=== PATIENT | female | born 1950 | race Caucasian/White ===

== ENCOUNTER 2020-06-27 15:15 | Inpatient (IN) | payer MEDICARE, OTHER, SELFPAY ==
[2020-06-27] VITALS (7 sets, daily range): BP systolic 103–136; BP diastolic 59–93; PULSE 69–88; RESP 16–20; TEMP 36.2–36.8; O2SAT 99–100; BMI 24.9
--- NOTE | 2020-06-27 15:25 | DI.RAD.S_ITS ---
PROCEDURE: XR HIP W PEL IF DONE LT 2V INDICATIONS: left hip pain, fall TECHNIQUE: AP pelvis with lateral view(s) of the left hip(s). COMPARISON: None. FINDINGS: Bones: Mildly displaced femoral neck fracture. No dislocation. No other fractures.. Pelvic ring appears intact. No suspicious bony lesions. Soft tissues: The visualized bowel gas pattern is normal. No suspicious soft tissue calcifications. IMPRESSION: Mildly displaced left femoral neck fracture. Dictated by: Ray Myles M.D. on 06/27/2020 at 16:57 Approved by: Ray Myles M.D. on 06/27/2020 at 16:58
--- NOTE | 2020-06-27 15:28 | ED.FALL ---
HPI - Fall General Chief Complaint: Fall Stated Complaint: L Hip pain Time Seen by Provider: 06/27/20 15:25 Source: patient and EMS Mode of arrival: EMS Limitations: no limitations History of Present Illness HPI Narrative: This is a 69-year-old female comes to the emergency department with complaint of left hip pain. Patient was on a small stool when she went to step down misjudged the distance and fell on her left hip. She has significant left hip pain and cannot move that leg without severe pain. She describes a little bit of numbness and tingling. She states she has had issues with sciatica and pain in the extremity in the past and has had some mild numbness and tingling in the past. Patient denies hitting her head, she denies any neck or back pain. She denies any shortness of breath. No nausea or vomiting. No other GI or urinary symptoms. Patient states she takes sertraline she does not take any medications otherwise. Patient is not on any anticoagulants, she does not take aspirin. She states she is allergic to Demerol and gets nausea vomiting. She has had codeine and other narcotics without issue in the past. She denies any tobacco, alcohol or illicit. Her last oral intake was just prior to arrival while making [employer]. She moved to the area 2 weeks prior from [place] and has not established with a primary care yet. Related Data Home Medications Medication Instructions Recorded Confirmed multivitamin [A To Z Multivitamin] 1 tab PO DAILY 06/27/20 06/27/20 sertraline 100 mg PO DAILY 06/27/20 06/27/20 Allergies Allergy/AdvReac Type Severity Reaction Status Date / Time meperidine [From Demerol] AdvReac Verified 06/27/20 15:54 Review of Systems Review of Systems ROS Unobtainable: All systems reviewed & are unremarkable except as noted in HPI and below Patient History Medical History Anxiety and depression Surgical History H/O ovarian cystectomy H/O unilateral salpingectomy History of appendectomy History of cholecystectomy Social History household members: spouse Smoking Status: Former smoker alcohol intake: never Substance Use Type: does not use Exam Narrative Exam Narrative: GEN: Patient appears in moderate distress. HEAD: No evidence of trauma, no raccoon/Escobedo sign. NECK: Nontender, painless range of motion, trachea midline Negative Nexus criteria, there is no mid line tenderness, distracting injury, altered mental status, neuro deficit, recent EtOH. EYES: PERRLA, EOMI ENT: External inspection normal, trachea is midline, TM's are normal no hemotypanum, Nares are clear, no septal hematoma, no dental or oral injury, airway is normal and with normal occlusion, No bony tenderness RESP: Chest is nontender and has symmetric movement, no ecchymosis, breath sounds are normal no crackles, wheezes or rales CVS: Heart sounds are normal, no murmur noted, No JVD. ABG/GI: Nontender, soft, normal bowel sounds, no distention, no organomegaly, pelvic rock is negative NEURO: Oriented AOx3, neuro is grossly intact, sensation and motor is normal all 4 extremities moving, cranial nerves II through XII are intact, GCS is 15 PSYCH: Normal mood and affect SKIN: Intact, warm and dry, no crepitus and without decubitus BACK: No CVA tenderness, no vertebral tenderness, no step-off's, no crepitus EXT: Atraumatic, right hip is nontender patient's left hip is quite uncomfortable. Patient's hip is held in flexion and rotated externally, no pedal edema, normal color and temperature, normal range of motion of extremities with normal tendon exam, 2+ pulses in all four extremities Initial Vital Signs Initial Vital Signs: Vital Signs Temperature 98.1 F 06/27/20 15:35 Pulse Rate 88 06/27/20 15:35 Respiratory Rate 18 06/27/20 15:35 Blood Pressure 136/81 06/27/20 15:35 Pulse Oximetry 99 06/27/20 15:35 Scores GCS [place] coma scale eye opening: Spontaneous Delmis coma scale verbal response: Orientated [place] coma scale motor response: Obey commands [place] coma scale total score: 15 Course Orders Ordered: ED Orders 06/27/20 15:25 XR hip w pel if done LT 2V Stat EKG-12 Lead Stat 06/27/20 15:32 Complete Blood Count AUTO DIFF Stat Comprehensive Metabolic Panel Stat Lipase Stat Type and Screen Stat 06/27/20 15:41 XR chest 1V Stat 06/27/20 15:53 COVID19 Stat Hydromorphone HCl (Hydromorphone 1 Mg Inj) 1 mg IV Q2H PRN PRN Reason: Pain, Severe (7-10) Last Admin: 06/27/20 18:56 Dose: 1 mg Documented by: AMRITA Sodium Chloride (Normal Saline 0.9%) 1,000 mls @ 125 mls/hr IV CONT BHARAT Last Admin: 06/27/20 15:49 Dose: 125 mls/hr Documented by: EARLE Ketorolac Tromethamine (Ketorolac 30 Mg/Ml Vial) 30 mg IV Q6HR PRN PRN Reason: Pain, Severe (7-10) Stop: 07/02/20 18:06 Multivitamins (Multivitamin 1 Tablet) 1 tab PO DAILY [facility] Naloxone HCl (Naloxone 0.4 Mg/Ml Vial) 0.2 mg IV Q2MIN PRN PRN Reason: Opiate Reversal Ondansetron HCl (Ondansetron 4 Mg/2 Ml Inj) 4 mg IV Q8HR PRN PRN Reason: Nausea And Vomiting Sertraline HCl (Sertraline 50 Mg Tablet) 50 mg PO 699,1999 [facility] Discontinued Medications Morphine Sulfate (Morphine 4 Mg/Ml Inj) 4 mg IV NOW ONE Stop: 06/27/20 16:07 Last Admin: 06/27/20 16:10 Dose: 4 mg Documented by: LUIS ANTONIO Ondansetron HCl (Ondansetron 4 Mg/2 Ml Inj) 4 mg IV NOW ONE Stop: 06/27/20 16:07 Last Admin: 06/27/20 16:10 Dose: 4 mg Documented by: LUIS ANTONIO Reevaluation(s) Reevaluation #1: Patient has increasing pain after imaging and ketamine seems to be wearing off. Morphine and zofran given. Time: 16:17 Consultations Consultation #1: Spoke with Dr. Novak, medicine to admit. Film reviewed. Time: 16:27 Consultation #2: Dr. Hooper accepts for admission. Time: 16:28 Vital Signs Vital signs: Vital Signs - 8 hr 06/27/20 15:35 06/27/20 16:03 Temperature 98.1 F Pulse Rate 88 81 Respiratory Rate 18 Blood Pressure 136/81 Pulse Oximetry 99 100 MDM - Fall Lab Data Attestation: I reviewed the patient's lab results. Result diagrams: 06/27/20 15:32 06/27/20 15:32 Labs: Lab Results 06/27/20 06/27/20 06/27/20 Range/Units 15:32 15:32 15:32 WBC 6.9 (4.5-11.0) X10^3/uL RBC 3.96 L (4.0-5.2) X10^6/uL Hgb 12.3 (12.0-16.0) g/dL Hct 36.7 (36-46) % MCV 92.8 (80-100) fL MCH 31.2 (26-34) PG MCHC 33.6 (30-36) % RDW 14.9 H (11.6-14.8) % Plt Count 230 (150-400) X10^3/uL Neut % (Auto) 58.2 (50-75) % Lymph % (Auto) 28.8 (25-40) % Reynolds % (Auto) 11.2 (3-14) % Eos % (Auto) 0.9 L (2-4) % Baso % (Auto) 0.9 (0-2) % Neut # (Auto) 4000 (0879-3715) /uL Lymph # (Auto) 2000 (9212-5265) /uL Reynolds # (Auto) 800 (0-900) /uL Eos # (Auto) 100 (0-450) /uL Baso # (Auto) 100 (0-100) /uL Sodium 132 L (137-145) mmol/L Potassium 3.7 (3.4-5.1) mmol/L Chloride 100 (98-107) mmol/L Carbon Dioxide 25 (22-32) mmol/L BUN 23 H (7-17) mg/dL Creatinine 0.70 (0.52-1.04) mg/dL Estimated GFR > 60.0 (>60) mL/min BUN/Creatinine Ratio 32.9 H (6-22) Glucose 108 (80-110) mg/dL Calcium 9.2 (8.4-10.2) mg/dL Total Bilirubin 0.3 (0.2-1.3) mg/dL AST 33 (14-36) IU/L ALT 21 (<35) IU/L Alkaline Phosphatase 85 (38-126) U/L Total Protein 7.3 (6.3-8.2) g/dL Albumin 4.2 (3.5-5.0) g/dL Globulin 3.1 (1.7-4.1) g/dL Albumin/Globulin Ratio 1.4 (1.0-2.8) Lipase 250 (23-300) U/L COVID-19 PCR (Negative) Blood Type A Positive Antibody Screen Negative 06/27/20 Range/Units 15:53 WBC (4.5-11.0) X10^3/uL RBC (4.0-5.2) X10^6/uL Hgb (12.0-16.0) g/dL Hct (36-46) % MCV (80-100) fL MCH (26-34) PG MCHC (30-36) % RDW (11.6-14.8) % Plt Count (150-400) X10^3/uL Neut % (Auto) (50-75) % Lymph % (Auto) (25-40) % Reynolds % (Auto) (3-14) % Eos % (Auto) (2-4) % Baso % (Auto) (0-2) % Neut # (Auto) (6244-7545) /uL Lymph # (Auto) (7097-2293) /uL Reynolds # (Auto) (0-900) /uL Eos # (Auto) (0-450) /uL Baso # (Auto) (0-100) /uL Sodium (137-145) mmol/L Potassium (3.4-5.1) mmol/L Chloride (98-107) mmol/L Carbon Dioxide (22-32) mmol/L BUN (7-17) mg/dL Creatinine (0.52-1.04) mg/dL Estimated GFR (>60) mL/min BUN/Creatinine Ratio (6-22) Glucose (80-110) mg/dL Calcium (8.4-10.2) mg/dL Total Bilirubin (0.2-1.3) mg/dL AST (14-36) IU/L ALT (<35) IU/L Alkaline Phosphatase (38-126) U/L Total Protein (6.3-8.2) g/dL Albumin (3.5-5.0) g/dL Globulin (1.7-4.1) g/dL Albumin/Globulin Ratio (1.0-2.8) Lipase (23-300) U/L COVID-19 PCR Negative (Negative) Blood Type Antibody Screen Imaging Data Chest x-ray: Radiologist's Impression: Jeanne Turcios 69 F [address] [id number] ReportSigned Patient: Jeanne Turcios JMR#: [id number]: [id number]:[id number]/Sex: 69 / FDate of Service: 06/27/20Loc: [id number] Number: [id number] Procedure: XR chest 1V Ordering Provider: Christina Palma D.O. PROCEDURE: XR CHEST 1V INDICATIONS: hip fx TECHNIQUE: One view of the chest was acquired. COMPARISON: None. FINDINGS: Surgical changes and devices: None. Lungs and pleura: Lungs are clear. No pleural effusions or pneumothorax. Mediastinum: Mediastinal contours appear normal. Heart size is normal. Bones and chest wall: No suspicious bony lesions. Overlying soft tissues appear unremarkable. IMPRESSION: No evidence acute pulmonary process. Dictated by: Ray Myles M.D. on 06/27/2020 at 16:58 Approved by: Ray Myles M.D. on 06/27/2020 at 16:58 Extremity x-ray #1: Radiologist's Impression: [address] [id number] ReportSigned Patient: Jeanne Turcios JMR#: [id number]: [id number]:[id number]/Sex: / FDate of Service: 06/27/20Loc: [id number] Number: [id number] Procedure: XR hip w pel if done LT 2V Ordering Provider: Christina Palma D.O. PROCEDURE: XR HIP W PEL IF DONE LT 2V INDICATIONS: left hip pain, fall TECHNIQUE: AP pelvis with lateral view(s) of the left hip(s). COMPARISON: None. FINDINGS: Bones: Mildly displaced femoral neck fracture. No dislocation. No other fractures.. Pelvic ring appears intact. No suspicious bony lesions. Soft tissues: The visualized bowel gas pattern is normal. No suspicious soft tissue calcifications. IMPRESSION: Mildly displaced left femoral neck fracture. Dictated by: Ray Myles M.D. on 06/27/2020 at 16:57 Approved by: Ray Myles M.D. on 06/27/2020 at 16:58 ECG Data Attestation: I personally reviewed and interpreted this ECG as follows: Interpretation: Normal sinus rhythm, rate of 73, ME 176, QRS 84 and QTC of 431. No ST elevation. No depression. No prior available for comparison. MDM Narrative Medical decision making narrative: 69-year-old female comes in with complaint of left hip pain after fall patient has a left hip fracture, reviewed with for orthopedic surgery plan for OR. Patient did eat just prior to arrival. She is not on thinners, her only medication is sertraline. She has a mild hyponatremia with otherwise unremarkable labs. Chest x-ray and EKG were and occluded for medical clearance. I also spoke with Dr. Hooper who accepts for admission. Discharge Plan Departure Patient Disposition: Admitted As Inpatient Clinical Impression: Closed hip fracture, Hyponatremia Admit Date/Time: 06/27/20 16:29 Admit Provider: Vincent Hooper
--- NOTE | 2020-06-27 15:41 | DI.RAD.S_ITS ---
PROCEDURE: XR CHEST 1V INDICATIONS: hip fx TECHNIQUE: One view of the chest was acquired. COMPARISON: None. FINDINGS: Surgical changes and devices: None. Lungs and pleura: Lungs are clear. No pleural effusions or pneumothorax. Mediastinum: Mediastinal contours appear normal. Heart size is normal. Bones and chest wall: No suspicious bony lesions. Overlying soft tissues appear unremarkable. IMPRESSION: No evidence acute pulmonary process. Dictated by: Ray Myles M.D. on 06/27/2020 at 16:58 Approved by: Ray Myles M.D. on 06/27/2020 at 16:58
[2020-06-27] MEDS: SODIUM CHLORIDE 0.9% 1,000 ML 125 ML IV (15:49)
[2020-06-27 15:50] LABS: Alanine Aminotransferase 21 IU/L (<35); Albumin 4.2 g/dL (3.5-5.0); Albumin Globulin Ratio 1.4 (1.0-2.8); Alkaline Phosphatase 85 U/L (38-126); Aspartate Aminotransferase 33 IU/L (14-36); BUN Creatinine Ratio 32.9 (6-22); Bilirubin Total 0.3 mg/dL (0.2-1.3); Blood Urea Nitrogen 23 mg/dL (7-17); Calcium 9.2 mg/dL (8.4-10.2); Carbon Dioxide 25 mmol/L (22-32); Chloride 100 mmol/L (98-107); Estimated Glomerular Filt Rate > 60.0 mL/min (>60); Globulin 3.1 g/dL (1.7-4.1); Glucose 108 mg/dL (80-110); HEMOLYSIS 18 (0-50); Lipase 250 U/L (23-300); Potassium 3.7 mmol/L (3.4-5.1); Sodium 132 mmol/L (137-145); Total Protein 7.3 g/dL (6.3-8.2)
[2020-06-27 15:52] LABS: Add Manual Diff / Slide Review NO; Basophils Absolute Auto 100 /uL (0-100); Basophils Percent Auto 0.9 % (0-2); Eosinophils Absolute Auto 100 /uL (0-450); Eosinophils Percent Auto 0.9 % (2-4); Hematocrit 36.7 % (36-46); Hemoglobin 12.3 g/dL (12.0-16.0); Lymphocytes Absolute Auto 2000 /uL (1100-4500); Lymphocytes Percent Auto 28.8 % (25-40); Mean Corpuscular HGB Conc 33.6 % (30-36); Mean Corpuscular Hemoglobin 31.2 PG (26-34); Mean Corpuscular Volume 92.8 fL (80-100); Monocytes Absolute Auto 800 /uL (0-900); Monocytes Percent Auto 11.2 % (3-14); Neutrophils Absolute Auto 4000 /uL (1500-7000); Neutrophils Percent Auto 58.2 % (50-75); Platelet Count 230 X10^3/uL (150-400); Red Blood Cell Count 3.96 X10^6/uL (4.0-5.2); Red Cell Distribution Width 14.9 % (11.6-14.8); White Blood Cell Count 6.9 X10^3/uL (4.5-11.0)
[2020-06-27] MEDS: ONDANSETRON 4 MG/2 ML INJ IV (16:10)
[2020-06-27] MEDS: MORPHINE 4 MG/ML INJ IV (16:10)
[2020-06-27 16:18] LABS: COVID19 -Nasal RAPID Negative (Negative)
--- NOTE | 2020-06-27 17:15 | P.HP_ITS ---
History of Present Illness History of Present Illness Date Patient Seen: 06/27/20 Time Patient Seen: 17:15 Chief complaint: L Hip pain Narrative: Jeanne Malagon is a 69-year-old female with past medical history of anxiety and depression who presented to the emergency room with a complaint of left hip pain. Patient was baking Jair cookies and was standing on a step stool to reach a kahn in her cabinet, she thought she was on the bottom step of her step stool however she was on the 2nd to bottom. Her foot then slipped and she fell onto her left side. She had immediate pain and could not move. She has a little bit of numbness and tingling that is intermittent in her left foot. She did not hit her head and she denies any neck or back pain. She has had no recent chest pain, shortness of breath, palpitations, nausea, vomiting, abdominal pain, dysuria, or urinary frequency. She states that she has refused osteoporosis treatment with Fosamax in the past and would not want to start now. She takes multiple supplements including calcium and vitamin-D, and sertraline is her only prescribed medication. In the emergency room, her vital signs were unremarkable. CBC was unremarkable, chemistries revealed a mild hyponatremia with a sodium of 132, but no other significant lab abnormality. COVID-19 testing was negative. Type and screen was performed. EKG showed normal sinus rhythm. Chest x-ray was unremarkable and hip x-ray showed a mildly displaced left femoral neck fracture. Patient was admitted, Orthopedic surgery consulted, and she is pending operative fixation at this time. She did eat just prior to her fall, unclear if operative intervention will be later this evening or tomorrow morning. Patient History Medical History Anxiety and depression Surgical History H/O ovarian cystectomy H/O unilateral salpingectomy History of appendectomy History of cholecystectomy Family & Social History Social History: household members spouse Prior Living Arrangements House Safety & Behavioral: Feels Safe in Current Yes Environment Been Physically Hurt or No Threatened By a Person Suicidal Ideation Description None Suicide Plan Description No Plan Tobacco & Substance use: Smoking Status Former smoker alcohol intake never Substance Use Type does not use Meds Home Medications and Allergies Home Medications Medication Instructions Recorded Confirmed Type multivitamin [A To Z Multivitamin] 1 tab PO DAILY 06/27/20 06/27/20 History sertraline 100 mg PO DAILY 06/27/20 06/27/20 History Allergies Allergy/AdvReac Type Severity Reaction Status Date / Time meperidine [From Demerol] AdvReac Verified 06/27/20 15:54 Review of Systems Review of Systems Narrative: All other systems reviewed with the patient and are negative unless otherwise stated. Exam Vital Signs (past 8 hours): - 06/27/20 15:35 06/27/20 16:03 06/27/20 16:30 Temperature 98.1 F Pulse Rate 88 81 80 Respiratory Rate 18 Blood Pressure 136/81 Pulse Oximetry 99 100 100 06/27/20 16:31 Temperature Pulse Rate 80 Respiratory Rate Blood Pressure 113/93 H Pulse Oximetry 99 Oxygen Delivery Method Room Air Narrative Exam Narrative: GENERAL APPEARANCE: Well developed, well nourished, in no acute distress but grimaces in pain with minimal movement. SKIN: Inspection of the skin reveals no rashes, ulcerations or petechiae. HEENT: Normocephalic atraumatic, extraocular muscles are intact, oropharynx is clear and mucous membranes are moist, neck is supple without adenopathy NECK: Supple and symmetric. There was no thyroid enlargement, and no tenderness, or masses were felt. CHEST: Normal AP diameter and normal contour without any kyphoscoliosis. LUNGS: Auscultation of the lungs revealed no wheezes, rhonchi, or rales. CARDIOVASCULAR: There was a regular rate and rhythm without any murmurs, gallops, rubs. Peripheral pulses were 2+ and symmetric. ABDOMEN: Soft and nondistended. No ascites was noted. MUSCULOSKELETAL: Tenderness to left hip, mild left lower extremity swelling, Muscle tone was normal. EXTREMITIES: No cyanosis, clubbing or edema. Compartments soft bilaterally. NEUROLOGIC: Alert and oriented x 3. Normal affect. Able to wiggle her left toes, no gross focal neurological deficits. Objective Labs Result Diagrams: 06/27/20 15:32 06/27/20 15:32 Labs: Laboratory Results - last 24 hr 06/27/20 06/27/20 06/27/20 15:32 15:32 15:32 WBC 6.9 RBC 3.96 L Hgb 12.3 Hct 36.7 MCV 92.8 MCH 31.2 MCHC 33.6 RDW 14.9 H Plt Count 230 Neut % (Auto) 58.2 Lymph % (Auto) 28.8 Bradford % (Auto) 11.2 Eos % (Auto) 0.9 L Baso % (Auto) 0.9 Neut # (Auto) 4000 Lymph # (Auto) 2000 Bradford # (Auto) 800 Eos # (Auto) 100 Baso # (Auto) 100 Sodium 132 L Potassium 3.7 Chloride 100 Carbon Dioxide 25 BUN 23 H Creatinine 0.70 Estimated GFR > 60.0 BUN/Creatinine Ratio 32.9 H Glucose 108 Calcium 9.2 Total Bilirubin 0.3 AST 33 ALT 21 Alkaline Phosphatase 85 Total Protein 7.3 Albumin 4.2 Globulin 3.1 Albumin/Globulin Ratio 1.4 Lipase 250 COVID-19 PCR Blood Type A Positive Antibody Screen Negative 06/27/20 15:53 WBC RBC Hgb Hct MCV MCH MCHC RDW Plt Count Neut % (Auto) Lymph % (Auto) [place] % (Auto) Eos % (Auto) Baso % (Auto) Neut # (Auto) Lymph # (Auto) [place] # (Auto) Eos # (Auto) Baso # (Auto) Sodium Potassium Chloride Carbon Dioxide BUN Creatinine Estimated GFR BUN/Creatinine Ratio Glucose Calcium Total Bilirubin AST ALT Alkaline Phosphatase Total Protein Albumin Globulin Albumin/Globulin Ratio Lipase COVID-19 PCR Negative Blood Type Antibody Screen Assessment & Plan Assessment & Plan narrative: Jeanne Malagon is a 69-year-old female with past medical history of anxiety and depression who presented to the emergency room with a complaint of left hip pain. She was found to have a mildly displaced left femoral neck fracture. She is pending operative fixation at this time, timing to be determined with Orthopedic surgery and anesthesia. 1. Left femoral neck fracture, mildly displaced, acute, present on admission, likely pathologic -patient slipped off of the 2nd step of her step stool reaching for cookie tins in her kitchen, landing on her left side and suffering a mildly displaced left femoral neck fracture. -orthopedic surgery, Dr. Phelan, consult in the emergency room. Planning for operative interventions either later today or possibly tomorrow morning given the patient did eat just prior to her fall. -patient denies recent symptoms including chest pain, shortness of breath, dyspnea on exertion. EKG shows normal sinus rhythm. Chest x-ray is unremarka ble. Patient is medically optimized prior to surgery. -PT/OT after operative interventions -patient does not want to discharge to SNF,prefers home with home health. -pain control for now with dilauid 1 mg q2 hours. 2. Anixety and depression, chronic, stable - continue home sertraline, patients states she takes medicine 50 mg BID. Will continue here. 3. Hyponatremia, unknown if acute or chronic, present on admission. - mild hyponatremia on admission, 132. Will continue to follow level with AM value. Keep on NS infusion while NPO for OR. Dispo: Admit under inpatient status as her stay is expected to exceed two midnights. Code: Full, surrogate decision maker is her , Richard Malagon DVT: HSQ BID, hold for surgery. COVID-19 COVID-19 status: Negative Quality VTE Deep Vein Thrombosis/Pulmonary Embolism Present on Admission: No
[2020-06-27] MEDS: HYDROMORPHONE 1 MG INJ IV ×2 (18:56→22:09)
--- NOTE | 2020-06-27 19:39 | PM.CN ---
History of Present Illness Consult details Date Patient Seen: 06/27/20 Time Patient Seen: 19:39 Chief complaint: L Hip pain Reason for consult: Left hip fracture Requesting provider: Christina Palma Narrative: Jeanne is a 69-year-old female that fell off her stepstool while making [employer] cookies today. She thought she was on the 1st step but was on the 2nd and fell on the ground directly onto her left hip. She was unable to ambulate removed after that had pain directly at the left hip. Denies loss consciousness or other injury. Does have a previous diagnosis of osteopenia. Has refused bisphosphonates in the past. 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 She just moved here about 2 weeks ago from [place]. Denies fevers chills nausea or vomiting. Endorses pain left hip. Endorses a history of bilateral knee arthritis that she gets higher on the cast had injections from a pain doctor in [facility]. Also may have had some sciatica symptoms recently. Presents with her who is in the room today. We also have her daughter Hanny with us via telephone. Interestingly her daughter Hanny has a history of a displaced highly comminuted femoral neck fracture when she was young and that was fixed with an ORIF the later went on to AVN. Meds Home Medications and Allergies Home Medications Medication Instructions Recorded Confirmed Type multivitamin [A To Z Multivitamin] 1 tab PO DAILY 06/27/20 06/27/20 History sertraline 100 mg PO DAILY 06/27/20 06/27/20 History Allergies Allergy/AdvReac Type Severity Reaction Status Date / Time meperidine [From Demerol] AdvReac Verified 06/27/20 15:54 Review of Systems Review of Systems Narrative: History of knee arthritis. History of osteopenia. History of gynecologic surgery ROS: Yes All systems reviewed with the patient and are negative except as otherwise documented Exam Vital Signs (past 8 hours): - 06/27/20 15:35 06/27/20 16:03 06/27/20 16:30 Temperature 98.1 F Pulse Rate 88 81 80 Respiratory Rate 18 Blood Pressure 136/81 Pulse Oximetry 99 100 100 06/27/20 16:31 06/27/20 16:55 Temperature 98.3 F Pulse Rate 80 71 Respiratory Rate 20 Blood Pressure 113/93 H 123/64 Pulse Oximetry 99 99 Oxygen Delivery Method Room Air Narrative Exam Narrative: General examination is alert and oriented female no acute distress. Very articulate and pleasant. HEENT exam is normocephalic atraumatic Respiratory exam is unlabored on room air. lungs clear CV regular rate and rhythm no Kahn Musculoskeletal exam. No pain along the left leg. Right leg normal rotation and leg lengths. Tenderness at the left hip. Dorsiflexion plantar flexion intact soft calf. No erythema. Hip range of motion is deferred with known fracture and to avoid displacement Free full painless movement bilateral upper extremities. No swelling or erythema. Objective Labs Result Diagrams: 06/27/20 15:32 06/27/20 15:32 Labs: Laboratory Results - last 24 hr 06/27/20 06/27/20 06/27/20 15:32 15:32 15:32 WBC 6.9 RBC 3.96 L Hgb 12.3 Hct 36.7 MCV 92.8 MCH 31.2 MCHC 33.6 RDW 14.9 H Plt Count 230 Neut % (Auto) 58.2 Lymph % (Auto) 28.8 [place] % (Auto) 11.2 Eos % (Auto) 0.9 L Baso % (Auto) 0.9 Neut # (Auto) 4000 Lymph # (Auto) 2000 [place] # (Auto) 800 Eos # (Auto) 100 Baso # (Auto) 100 Sodium 132 L Potassium 3.7 Chloride 100 Carbon Dioxide 25 BUN 23 H Creatinine 0.70 Estimated GFR > 60.0 BUN/Creatinine Ratio 32.9 H Glucose 108 Calcium 9.2 Total Bilirubin 0.3 AST 33 ALT 21 Alkaline Phosphatase 85 Total Protein 7.3 Albumin 4.2 Globulin 3.1 Albumin/Globulin Ratio 1.4 Lipase 250 COVID-19 PCR Blood Type A Positive Antibody Screen Negative 06/27/20 15:53 WBC RBC Hgb Hct MCV MCH MCHC RDW Plt Count Neut % (Auto) Lymph % (Auto) [place] % (Auto) Eos % (Auto) Baso % (Auto) Neut # (Auto) Lymph # (Auto) [place] # (Auto) Eos # (Auto) Baso # (Auto) Sodium Potassium Chloride Carbon Dioxide BUN Creatinine Estimated GFR BUN/Creatinine Ratio Glucose Calcium Total Bilirubin AST ALT Alkaline Phosphatase Total Protein Albumin Globulin Albumin/Globulin Ratio Lipase COVID-19 PCR Negative Blood Type Antibody Screen Assessment & Plan Assessment and plan (1) Closed hip fracture: Problem details: Left Garden 1 hip fracture femoral neck. Fracture line visible at and medial neck it is valgus impacted. Discussed options for treatment. Recommend pinning with cannulated hip screws. Discuss risks and benefits. In particular discussed risks for nonunion malunion AVN hardware failure potential posttraumatic arthritis or need for additional surgery or hip replacement. Discussed advantages of pinning including less blood loss unfavorable outcome with garden 1 orientation fracture. Discussed patient's hip joint is well preserved. The risks and benefits of the procedure have been discussed with the patient even opportunity to ask questions. The risks of surgery include but are not limited to infection, malunion, nonunion, persistence of pain, damage to nerves and blood vessels, posttraumatic arthritis, DVT, PE, cardiopulmonary complications including paralysis, stroke, myocardial infarction and . The patient expressed a thorough understanding of the risks and benefits of surgery and has elected to proceed. Consent was signed. Will do Lovenox 40 mg subcutaneous daily for postoperative DVT prophylaxis starting postop day 1 for 4 weeks. She has no history of thromboembolism or bleeding disorder. She does not use tobacco. Status: Acute (2) Osteoporosis with pathological fracture: Problem details: Patient has had a previous DEXA scan but cannot remember when it was. She has previously been diagnosed with osteopenia and has been counseled for bisphosphonates but declined these at the time. I have encouraged a reassessment of her bone density as an outpatient with a new DEXA scan. The current intake of vitamin-D and calcium and consideration for additional the methods to address her osteoporosis. Discussed osteopenia with a fracture including a hip fracture is a sentinel event and a a defines a osteoporotic fracture. She has just moved to the area and will need to establish a primary care physician. Also discussed that initial DEXA imaging can be ordered as an outpatient with follow-up in orthopedic clinic. Status: Acute
[2020-06-27] MEDS: SERTRALINE 50 MG TABLET PO (21:53)
[2020-06-28] VITALS (21 sets, daily range): BP systolic 90–141; BP diastolic 47–73; PULSE 67–110; RESP 12–20; TEMP 36.2–37.9; O2SAT 92–99; BMI 24.9
--- NOTE | 2020-06-28 | DI.RAD.S_ITS ---
PROCEDURE: XR HIP W PEL IF DONE LT 2V INDICATIONS: left hip pinning TECHNIQUE: AP pelvis with lateral view(s) of the left hip(s). COMPARISON: [facility], [facility], XR HIP W PEL IF DONE LT 2V, 06/27/2020, 15:26. FINDINGS: 4 intraoperative fluoroscopy images demonstrate open reduction and internal fixation of left femoral neck fracture is placement of 3 surgical pins. IMPRESSION: Open reduction and internal fixation of left femoral neck fracture. Dictated by: Saumya Murphy M.D. on 06/28/2020 at 15:26 Approved by: Saumya Murphy M.D. on 06/28/2020 at 15:28
[2020-06-28] MEDS: SODIUM CHLORIDE 0.9% 1,000 ML 125 ML IV ×2 (00:09→09:20)
[2020-06-28] MEDS: HYDROMORPHONE 1 MG INJ IV ×5 (00:57→09:19)
[2020-06-28] MEDS: ONDANSETRON 4 MG/2 ML INJ IV (04:04)
[2020-06-28 06:13] LABS: Add Manual Diff / Slide Review NO; Basophils Absolute Auto 0 /uL (0-100); Basophils Percent Auto 0.4 % (0-2); Eosinophils Absolute Auto 0 /uL (0-450); Eosinophils Percent Auto 0.3 % (2-4); Hematocrit 37.1 % (36-46); Hemoglobin 12.1 g/dL (12.0-16.0); Lymphocytes Absolute Auto 700 /uL (1100-4500); Lymphocytes Percent Auto 8.4 % (25-40); Mean Corpuscular HGB Conc 32.5 % (30-36); Mean Corpuscular Hemoglobin 30.6 PG (26-34); Mean Corpuscular Volume 94.3 fL (80-100); Monocytes Absolute Auto 800 /uL (0-900); Monocytes Percent Auto 9.4 % (3-14); Neutrophils Absolute Auto 6900 /uL (1500-7000); Neutrophils Percent Auto 81.5 % (50-75); Platelet Count 197 X10^3/uL (150-400); Red Blood Cell Count 3.94 X10^6/uL (4.0-5.2); Red Cell Distribution Width 14.8 % (11.6-14.8); White Blood Cell Count 8.4 X10^3/uL (4.5-11.0)
[2020-06-28] MEDS: SERTRALINE 50 MG TABLET PO ×2 (06:16→20:24)
[2020-06-28 06:20] LABS: BUN Creatinine Ratio 19.2 (6-22); Blood Urea Nitrogen 14 mg/dL (7-17); Calcium 8.9 mg/dL (8.4-10.2); Carbon Dioxide 30 mmol/L (22-32); Chloride 108 mmol/L (98-107); Estimated Glomerular Filt Rate > 60.0 mL/min (>60); Glucose 100 mg/dL (80-110); HEMOLYSIS < 15 (0-50); Potassium 4.3 mmol/L (3.4-5.1); Sodium 138 mmol/L (137-145)
[2020-06-28] MEDS: ACETAMINOPHEN 325 MG TABLET 975 MG PO (09:38)
[2020-06-28] MEDS: LACTATED RINGERS 1,000 ML 42 ML IV ×2 (11:11→14:08)
--- NOTE | 2020-06-28 11:15 | OT.IPNOTE ---
OT order recieved. Pt is planned for L hip sx today at 1300. Will hold and continue to follow.
--- NOTE | 2020-06-28 11:16 | PC.NURSE ---
Day shift note: Pain not well controlled with Dilaudid 1 mg IV Q2H, states pain 10/10 to left hip, notified Dr. Hooper, new order obtained for Morphine 4mg Q3H PRN.
--- NOTE | 2020-06-28 11:31 | PT-IP ANOTE ---
PT order received and chart reviewed. Pt suffered Lhip fracture at femoral neck from a GLF. She is going to have surgery today with pinning with cannulated hip screws. Will DC PT order first until pt's new POC is established post surgically.
[2020-06-28] MEDS: CEFAZOLIN 2 GM/100 ML FROZ.PIGGY IV ×2 (13:00→20:24)
[2020-06-28] MEDS: BUPIVACAINE 0.25% W/ EPI (PF) 10 ML VIAL 20 ML INJ (13:33)
--- NOTE | 2020-06-28 13:39 | SUR.OPER ---
Supine on padded Bushnell table with bilateral legs secured in padded positioning boots and suspended in positioning spars, operative leg in traction per surgeon. Head on one pillow. Arm on non-operative side secured on padded armboard <90 degrees abduction. Arm on operative side padded and resting across chest then secured with tape over sheet. Padded perineal post in place per surgeon.
--- NOTE | 2020-06-28 14:36 | CM.IDA ---
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 Patient presents after a GLF at home and subsequent hip fx, needing repair w/ Dr Novak today. Patient moved to [place] from [place] two weeks ago and has not established w/ a PCP yet. Payer: [facility] Patient off the floor for surgery this afternoon. Will plan to follow closely and assess for DC needs. Team feels patient will likely DC home w/spouse, indp and active at baseline. ANUEL
--- NOTE | 2020-06-28 14:42 | P.PN_ITS ---
Subjective Subjective Date Patient Seen: 06/28/20 Time Patient Seen: 16:06 Interval history: This is a 69-year-old female with a past medical history of anxiety and depression who was admitted with a left femoral neck fracture. She is seen today after return from the operating room where she underwent operative fixation of her femoral neck fracture. Her pain is controlled at this time. She denies any chest pain or shortness of breath. She is anxious to get up and work with PT. 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 Exam Vital Signs (past 8 hours): - 06/28/20 08:48 06/28/20 09:25 06/28/20 10:05 Temperature 97.4 F L 98.3 F Pulse Rate 96 H 87 Respiratory Rate 15 13 Blood Pressure 141/73 H 93/61 Pulse Oximetry 98 94 93 06/28/20 10:59 Temperature 99.3 F Pulse Rate 91 H Respiratory Rate 20 Blood Pressure 103/57 L Pulse Oximetry 94 Oxygen Delivery Method Room Air Oxygen Flow Rate 0 Narrative Exam Narrative: GENERAL APPEARANCE: Well developed, well nourished, in no acute distress but grimaces in pain with minimal movement. SKIN: Inspection of the skin reveals no rashes, ulcerations or petechiae. HEENT: Normocephalic atraumatic, extraocular muscles are intact, oropharynx is clear and mucous membranes are moist, neck is supple without adenopathy NECK: Supple and symmetric. There was no thyroid enlargement, and no tenderness, or masses were felt. CHEST: Normal AP diameter and normal contour without any kyphoscoliosis. LUNGS: Auscultation of the lungs revealed no wheezes, rhonchi, or rales. CARDIOVASCULAR: There was a regular rate and rhythm without any murmurs, gallops, rubs. Peripheral pulses were 2+ and symmetric. ABDOMEN: Soft and nondistended. No ascites was noted. MUSCULOSKELETAL: L hip surgical dressing c/d/i. mild swelling over the area without erythema or warmth. EXTREMITIES: No cyanosis, clubbing or edema. Compartments soft bilaterally. NEUROLOGIC: Alert and oriented x 3. Normal affect. Able to wiggle her left toes, no gross focal neurological deficits. Objective Labs Result Diagrams: 06/28/20 05:50 06/28/20 05:50 Labs: Laboratory Results - last 24 hr 12/17/20 12/17/20 12/17/20 15:32 15:32 15:32 WBC 6.9 RBC 3.96 L Hgb 12.3 Hct 36.7 MCV 92.8 MCH 31.2 MCHC 33.6 RDW 14.9 H Plt Count 230 Neut % (Auto) 58.2 Lymph % (Auto) 28.8 [place] % (Auto) 11.2 Eos % (Auto) 0.9 L Baso % (Auto) 0.9 Neut # (Auto) 4000 Lymph # (Auto) 2000 [place] # (Auto) 800 Eos # (Auto) 100 Baso # (Auto) 100 Sodium 132 L Potassium 3.7 Chloride 100 Carbon Dioxide 25 BUN 23 H Creatinine 0.70 Estimated GFR > 60.0 BUN/Creatinine Ratio 32.9 H Glucose 108 Calcium 9.2 Total Bilirubin 0.3 AST 33 ALT 21 Alkaline Phosphatase 85 Total Protein 7.3 Albumin 4.2 Globulin 3.1 Albumin/Globulin Ratio 1.4 Lipase 250 COVID-19 PCR Blood Type A Positive Antibody Screen Negative 06/27/20 06/28/20 06/28/20 15:53 05:50 05:50 WBC 8.4 RBC 3.94 L Hgb 12.1 Hct 37.1 MCV 94.3 MCH 30.6 MCHC 32.5 RDW 14.8 Plt Count 197 Neut % (Auto) 81.5 H D Lymph % (Auto) 8.4 L D [place] % (Auto) 9.4 Eos % (Auto) 0.3 L Baso % (Auto) 0.4 Neut # (Auto) 6900 Lymph # (Auto) 700 L [place] # (Auto) 800 Eos # (Auto) 0 Baso # (Auto) 0 Sodium 138 Potassium 4.3 Chloride 108 H Carbon Dioxide 30 BUN 14 Creatinine 0.73 Estimated GFR > 60.0 BUN/Creatinine Ratio 19.2 Glucose 100 Calcium 8.9 Total Bilirubin AST ALT Alkaline Phosphatase Total Protein Albumin Globulin Albumin/Globulin Ratio Lipase COVID-19 PCR Negative Blood Type Antibody Screen [facility] Medical History Anxiety and depression Surgical History H/O ovarian cystectomy H/O unilateral salpingectomy History of appendectomy History of cholecystectomy Social History household members: spouse Smoking Status: Former smoker alcohol intake: never Assessment & Plan Assessment & Plan narrative: Jeanne Malagon is a 69-year-old female with past medical history of anxiety and depression who presented to the emergency room with a complaint of left hip pain. She was found to have a mildly displaced left femoral neck fracture. She is now s/p ORIF on 06/28/20. 1. Left femoral neck fracture, mildly displaced, acute, present on admission, likely pathologic -patient slipped off of the 2nd step of her step stool reaching for cookie tins in her kitchen, landing on her left side and suffering a mildly displaced left femoral neck fracture. -orthopedic surgery, Dr. Phelan, consult in the emergency room. ORIF performed 06/28. -patient denied recent symptoms including chest pain, shortness of breath, dyspnea on exertion. EKG shows normal sinus rhythm. Chest x-ray is unremarkable. Patient is medically optimized prior to surgery. -PT/OT to start tomorrow -patient does not want to discharge to SNF,prefers home with home health. -pain control with tylenol, oxycodone, morphine for breakthrough. 2. Anixety and depression, chronic, stable - continue home sertraline, patients states she takes medicine 50 mg BID. Will continue here. 3. Hyponatremia, acute, present on admission, resolved. - mild hyponatremia on admission, 132. Improved with normal saline to 138. Likely due to mild dehydration. Dispo: Admit under inpatient status as her stay is expected to exceed two midnights. Code: Full, surrogate decision maker is her , Richard Malagon DVT: HSQ BID, hold for surgery. Quality VTE Deep Vein Thrombosis/Pulmonary Embolism Present on Admission: No
--- NOTE | 2020-06-28 14:44 | PM.PREOP ---
Pre-operative Note COVID-19 COVID-19 status: Negative Interval Note History & Physical reviewed/Exam performed by Physician: Yes Changes to H&P: No H&P completed within 30 days and has changed as indicated here:: Formal H&P & consult less than 24 hours old. No changes
--- NOTE | 2020-06-28 14:50 | P.OP_ITS ---
Operative Date/Time/Diagnoses Date of procedure: 06/28/20 Time of procedure: 14:50 Pre-op diagnosis: Left valgus impacted femoral neck fracture Osteoporosis Post-op diagnosis: same Procedure & Clinicians Procedure: Revision left femoral neck fracture with cannulated screws CPT code 50335 Same procedure as scheduled: Yes Indications: Patient is a 69-year-old female fell off a step stool while baking cookies. She thought she was on the the 1st step was on the 2nd step and fell directly on her left hip. She sustained a valgus impacted femoral neck fracture. She has no pre-existing or underlying arthritis. She was indicated for cannulated screw fixation of her valgus impacted femoral neck fracture. She does have a previous diagnosis of osteopenia. She has not been on it osteoporosis specific medications. The risks and benefits of the procedure have been discussed with the patient even opportunity to ask questions. The risks of surgery include but are not limited to infection, malunion, nonunion, persistence of pain, damage to nerves and blood vessels, posttraumatic arthritis, DVT, PE, cardiopulmonary complications and . The patient expressed a thorough understanding of the risks and benefits of surgery and has elected to proceed. Consent was signed. We talked in depth about risk for nonunion malunion failure of fixation and need for additional procedures including avascular necrosis and hip arthroplasty. We discussed risks for a blood loss pulmonary embolism and DVT in cardiopulmonary complications assoc iated with surgery. Surgeon: Lashawn Novak Click Yes if Unassisted: Yes Anesthesia Type: Spinal, Sedation and Local Operative Notes Findings: Valgus impacted left femoral neck fracture stabilized with 3 x 6.7 Arthrex partially-threaded cannulated screws measuring, 85mm, 85 mm, and 90 mm with a washer Closure Type: primary Specimen(s): none sent Prosthetic devices, grafts, tissues, transplants, or devices: Arthrex 6.7 cannulated screws, partially threaded, short thread x3 Estimated Blood Loss (mL): 10 Blood products transfused: none Tourniquet time (min): 0 Procedure in detail: Patient was seen in the preoperative area and the site of surgery was marked and informed consent was confirmed. Final questions were answered. This was the left hip. The patient was brought to the operating room and placed on the operative table. General anesthesia was administered. The patient was positioned on the fracture table in the standard fashion with well- padded boots and perineal post. An SCD was worn on the contralateral leg. For mal time-out procedure we took place confirming the patient's side and site of surgery and administration of appropriate preoperative antibiotics. All personnel were in agreement. Implants were in the room. The fluoroscopy unit was brought in and we made sure that we could get appropriate AP and lateral images of the hip. Following this the extremity was prepped and draped in the standard sterile fashion. Landmarks on the AP and lateral marked out on the skin. Small incision was made in the lateral thigh and a pin was placed percutaneously determining the starting port for the inferior cannulated screw. This was directed posterior along the neck and into the femoral head. The threaded guidewire was advanced across the fracture into the femoral head. The honeycomb guide was then used to advance 2 more guidewires in an inverted triangle fashion along the anterior and posterior femoral neck into the head. Fluoroscopic images were checked in AP and lateral planes to ensure adequate guidewire Spread and penetration. The inferior guidewire was measured for a 85 screw and then overdrilled. A 85 mm 6.7 Arthrex short thread cannulated screw was then advanced over the guidewire and across the fracture site into the femoral head. This was advanced to a appropriate distance from the articular surface. Next the posterior superior guidewire was overdrilled and measured for a 85 mm screw. This was placed without a washer. Additionally an 90 mm was screw with washer was placed for the anterior superior screw. AP and lateral imaging confirmed appropriate placement of the implants and no violation of the articular surface. The fracture maintained alignment. At this point the leg was taken through internal and external rotation obtaining visualization of the joint throughout the arc of motion under live fluoroscopy. All hardware was noted to be clear of the articular surface and there is no crepitus throughout the range of motion. I was satisfied with the alignment final images were obtained. The wound was irrigated and closed in layers with 2 O Vicryl suture deep and subcutaneous sutures and Monocryl subcutaneous suture in the skin. 0.25% Marcaine with epinephrine was used for local anesthetic. Steri-Strips were placed. Sterile dressing with gauze and Tegaderm was placed. Surgical counts were correct. The drapes removed. The patient's lower extremity alignment was again checked on the table for leg length noted to be equal in the patella were facing upward appropriately with stable ligamentous exam in the limbs moving as a unit. No immediate complications were noted. The patient tolerated the procedure well and was taken to recovery room. Complications: none Post-operative Condition: stable Disposition: PACU Plan for aftercare: 50% weight-bearing left lower extremity. Lovenox 40 mg subcu for DVT prophylaxis x4 weeks. Work with physical therapy. Follow-up in 2 weeks for x-rays. Patient has Monocryl sutures and does not require suture removal. Keep dressing clean dry and intact. May change as saturated.
--- NOTE | 2020-06-28 14:54 | SUR.PHASEI ---
Patient stable and pleasant, resting comfortably waiting for shift change to transport her to the floor. Pt talking, oriented, drinking fluids.
--- NOTE | 2020-06-28 15:34 | SUR.PHASEI ---
Was prepared to leave PACU when RN called for report: Given. Dr. Li talking with the patient. Pt transport on O2 at 2LNP. Pt states that she does yoga daily.
--- NOTE | 2020-06-28 15:44 | SUR.PHASEI ---
1535 to room 206, bed down and locked, call light within reach. Spouse at bedside. Handoff to RN. Pt awake, oriented, denies pain/nausea.
[2020-06-28] MEDS: OXYCODONE IR 5 MG TABLET PO ×3 (16:22→23:39)
[2020-06-28] MEDS: LACTATED RINGERS 1,000 ML 100 ML IV (16:23)
[2020-06-28] MEDS: DOCUSATE 100 MG CAPSULE PO (20:24)
[2020-06-28] MEDS: diphenhydrAMINE 25 MG TABLET PO (20:32)
[2020-06-29] VITALS (11 sets, daily range): BP systolic 96–137; BP diastolic 54–87; PULSE 74–88; RESP 16–18; TEMP 36.1–37.6; O2SAT 92–98
[2020-06-29] MEDS: ACETAMINOPHEN 325 MG TABLET 975 MG PO ×2 (01:31→10:57)
[2020-06-29] MEDS: OXYCODONE IR 5 MG TABLET PO ×7 (02:42→23:53)
[2020-06-29] MEDS: CEFAZOLIN 2 GM/100 ML FROZ.PIGGY IV (03:56)
[2020-06-29] MEDS: hydrOXYzine pamoate 25 MG CAPSULE PO ×4 (03:56→22:53)
[2020-06-29] MEDS: LIDOCAINE PATCH 1 EACH ADH..PATCH TOP (03:56)
[2020-06-29 05:47] LABS: Add Manual Diff / Slide Review NO; Basophils Absolute Auto 0 /uL (0-100); Basophils Percent Auto 0.2 % (0-2); Eosinophils Absolute Auto 0 /uL (0-450); Eosinophils Percent Auto 0.1 % (2-4); Hemoglobin 10.5 g/dL (12.0-16.0); Lymphocytes Absolute Auto 600 /uL (1100-4500); Lymphocytes Percent Auto 6.9 % (25-40); Mean Corpuscular HGB Conc 32.9 % (30-36); Mean Corpuscular Hemoglobin 30.8 PG (26-34); Mean Corpuscular Volume 93.6 fL (80-100); Monocytes Absolute Auto 1000 /uL (0-900); Monocytes Percent Auto 10.8 % (3-14); Neutrophils Absolute Auto 7200 /uL (1500-7000); Platelet Count 158 X10^3/uL (150-400); Red Blood Cell Count 3.42 X10^6/uL (4.0-5.2); Red Cell Distribution Width 14.7 % (11.6-14.8); White Blood Cell Count 8.8 X10^3/uL (4.5-11.0)
[2020-06-29 06:07] LABS: BUN Creatinine Ratio 13.6 (6-22); Blood Urea Nitrogen 9 mg/dL (7-17); Calcium 8.6 mg/dL (8.4-10.2); Carbon Dioxide 31 mmol/L (22-32); Chloride 99 mmol/L (98-107); Estimated Glomerular Filt Rate > 60.0 mL/min (>60); Glucose 110 mg/dL (80-110); HEMOLYSIS < 15 (0-50); Potassium 4.3 mmol/L (3.4-5.1); Sodium 129 mmol/L (137-145)
--- NOTE | 2020-06-29 07:30 | PC.NURSE ---
1391 Prepared to remove the patient's urinary catheter per order, the patient asked that I wait until after physical therapy gets her out of bed first to see how that goes. That's kind of what the doctor and I talked about yesterday was that we would wait to see how PT goes first. Indwelling urinary catheter left in place for now.
[2020-06-29] MEDS: SERTRALINE 50 MG TABLET PO ×2 (07:47→20:30)
--- NOTE | 2020-06-29 08:55 | OT.IPNOTE ---
Pt underwent sx 06/28/20. Will discharge order at this time and await new orders with post op instructions.
[2020-06-29] MEDS: ENOXAPARIN 40 MG/0.4 ML SYRINGE SUBCUT (09:39)
[2020-06-29] MEDS: MULTIVITAMIN 1 TABLET 1 TAB PO (09:39)
[2020-06-29] MEDS: DOCUSATE 100 MG CAPSULE PO ×2 (09:39→20:31)
--- NOTE | 2020-06-29 10:13 | PM.PN.1 ---
Subjective Subjective Date Patient Seen: 06/29/20 Time Patient Seen: 10:13 Interval history: Patient is POD#1 s/p left femoral neck fracture with cannulated screws. Pain has been mild to moderate. She has been on bedrest at this point. Kahn catheter in place. Tolerating a diet. Complaining of left knee pain. Known history of osteoarthritis in the left knee that has previously been treated with viscosupplementation however now having pain and apprehension with any knee flexion. No other complaints. Exam Vital Signs (past 8 hours): - 06/29/20 05:59 06/29/20 07:55 06/29/20 08:19 Temperature 97.0 F L 97.4 F L Pulse Rate 75 78 76 Respiratory Rate 16 16 18 Blood Pressure 105/62 96/54 L Pulse Oximetry 92 98 96 Oxygen Delivery Method Room Air Oxygen Flow Rate 0 Narrative Exam Narrative: 69 year old female resting in bed. Alert and oriented in no acute distress. Dressing in place over left lateral hip is CDI. Able to dorsiflex and plantar flex the ankle. Calves are soft, nontender. Objective Labs Result Diagrams: 06/29/20 05:15 06/29/20 05:15 Labs: Laboratory Results - last 24 hr 06/29/20 06/29/20 05:15 05:15 WBC 8.8 RBC 3.42 L Hgb 10.5 L Hct 32.0 L MCV 93.6 MCH 30.8 MCHC 32.9 RDW 14.7 Plt Count 158 Neut % (Auto) 82.0 H Lymph % (Auto) 6.9 L [place] % (Auto) 10.8 Eos % (Auto) 0.1 L Baso % (Auto) 0.2 Neut # (Auto) 7200 H Lymph # (Auto) 600 L [place] # (Auto) 1000 H Eos # (Auto) 0 Baso # (Auto) 0 Sodium 129 L Potassium 4.3 Chloride 99 Carbon Dioxide 31 BUN 9 Creatinine 0.66 Estimated GFR > 60.0 BUN/Creatinine Ratio 13.6 Glucose 110 Calcium 8.6 PFSH Medical History Anxiety and depression Surgical History H/O ovarian cystectomy H/O unilateral salpingectomy History of appendectomy History of cholecystectomy Social History household members: spouse Smoking Status: Former smoker alcohol intake: never Assessment & Plan Assessment & Plan narrative: -Patient is POD#1 s/p left femoral neck fracture with cannulated screws. -Work with physical therapy. 50% weight-bearing left lower extremity. -DVT prophylaxis recommending Lovenox 40 mg subcu x4 weeks. -She is complaining of worsening left knee pain. Due to her recent fall will order knee films to rule out fracture. -Will need outpatient follow-up in [address] Novak for x-rays. Patient has Monocryl sutures and does not require suture removal. Keep dressing clean dry and intact. May change as saturated. Quality VTE Deep Vein Thrombosis/Pulmonary Embolism Present on Admission: No
--- NOTE | 2020-06-29 10:28 | DI.RAD.S_ITS ---
PROCEDURE: XR KNEE LT 1TO2V COMPARISON: None. INDICATIONS: left knee pain s/p fall. FINDINGS: Two views of the left knee were performed. There are severe tricompartmental degenerative changes with loss of the joint space medially. There is subchondral sclerosis and tricompartmental osteophytes. A small suprapatellar joint effusion is present. IMPRESSION: 1. Tricompartmental degenerative changes consistent with severe osteoarthritis. 2. No acute traumatic abnormality. Dictated by: Vicente Ovalle M.D. on 06/29/2020 at 11:12 Approved by: Vicente Ovalle M.D. on 06/29/2020 at 11:13
--- NOTE | 2020-06-29 10:53 | PT.IIE ---
Current Diagnoses Age-related osteoporosis with current pathological fracture, unspecified site, initial encounter for fracture (06/27/20) Fracture of unspecified part of neck of unspecified femur, initial encounter for closed fracture (06/27/20) Surgery Performed Operation Date: 06/28/20 12:45 Actual Procedures p hip fracture pinning(Left) - Lashawn Novak MD Surgical History (Last Reviewed 06/29/20 @ 10:15 by Cristina Fry PA-C) H/O ovarian cystectomy H/O unilateral salpingectomy History of appendectomy History of cholecystectomy Medical History (Last Reviewed 06/29/20 @ 10:36 by Cristina Fry PA-C) Anxiety and depression Physical Therapy Inpatient Evaluation/Re-Eval M1 PT/OT-IP Prior Functional Status Start: 06/28/20 08:34 Freq: NEEDED Status: Active Protocol: Document 06/29/20 10:53 AB (Rec: 06/29/20 13:06 [email or web address] Medical Review Prior Functional Status Medical History Reviewed Yes Communication able to make needs known Mobility and Gait pt stated that she is independent with all mobilities and ambulation without AD Social History Household Members spouse Living Arrangements Apartment/Condo Number of Floors (Floors) One Floor Number of Stairs To Enter/Railing? 3 steps without rails to enter from the front pt is not sure if there is 1 or 2 steps from the garage Home Environment Standard Height Toilet,Tub/ Shower Home Equipment Front Wheel Walker Additional Social History Comment pt plans to just do sponge bathing daughter will stay with pt to assist her pt just moved to her home 2 weeks ago M2 PT-IP Current Condition Start: 06/28/20 08:34 Freq: NEEDED Status: Active Protocol: Document 06/29/20 10:53 AB (Rec: 06/29/20 13:06 [email or web address] Physical Therapy Current Condition Current Condition Evaluation Date 06/29/20 Treatment Diagnosis L femoral neck fx s/p cannulated screws; difficulty in walking Weight Bearing Status Weight Bearing Status Partial Weight Bearing Allowed Weight Bearing Amount (enter % LLE 50% PWB or #) (%) M3 PT-IP Subjective Start: 06/28/20 08:34 Freq: NEEDED Status: Active Protocol: Document 06/29/20 10:53 AB (Rec: 06/29/20 13:06 AB [email or web address]) Subjective Physical Therapy Visit Type Type Initial Evaluation Visit Start Time 10:53 Visit Stop Time 11:39 Total Visit Minutes 46 Number of POTATO CHIP FRYER Visits 0 Physical Therapy Visit Comments Patient Comments pt stated that she does not want to go to a nursing rehab. Therapy Pain Assessment Pain When Pain Assessed At Rest Pain Present Pain Present Pain Reported Location Left Hip Intensity 4 Scale Used 10/10 with mobility Pain Management Techniques Distraction,Modification of Treatment,Re-positioning, Timing of Activity with Medications M4 PT-IP Mobility and Gait Start: 06/28/20 08:34 Freq: NEEDED Status: Active Protocol: Document 06/29/20 10:53 AB (Rec: 06/29/20 13:06 [id number]) PT-Bed Mobility Assessment Supine to Sit Supine to Sit Maximum Assistance,1 Person Assistance,2 Person Assistance PT-Transfer Assessment Sit to and From Stand Sit to and from Stand Maximum Assistance,1 Person Assistance,Use of Upper Extremities Equipment Transfer Assistive Device Front Wheeled Walker Orthotic/Prosthetic Devices or Brace: No Transfers Transfer Destination Chair Transfer Technique Stand Step Pivot Transfer Ability Level of Assist Maximum Assistance,1 Person Assistance,2 Person Assistance ,Use of Upper Extremities Comments Mobility Comments educated pt on weight bearing restriction, equipement needs and level of mobility to be able to go home safely. pt is adamant about not going to a nursing rehab facility. heel slide completed prior to mobility. c/o more of knee pain than hip pain. pt stated that she has really bad arthritis on B knees. completed supine to sit max A x 1-2 and max cues. pt was able to sit on EOB SBA to CGA. completed sit to stand max A and max cues and transferred to chair step transfer max A using FWW. pt did NWB on LLE. pt stated she prefers not to put weight on it at this time . c/o more of hip pain after transfer. positioned on chair . pt just wanted to rest after transfers. reminded pt regarding equipement needs and is aware. call ligt and table placed within reach. Gait Assessment Comments Gait Comments able to take steps during transfers using FWW PT-Balance Assessment Sitting Balance and Reactions Static Sitting Balance Ability Good Dynamic Sitting Balance Ability Fair Standing Balance and Reactions Static Standing Balance Ability Poor Dynamic Standing Balance Ability Poor Device Used FWW M5 PT-IP Objective Assessments Start: 06/28/20 08:34 Freq: NEEDED Status: Active Protocol: Document 06/29/20 10:53 AB (Rec: 06/29/20 13:06 AB [id number]) Orientation Orientation/Cognition Level of Alertness Alert Orientation Name,Place,Situation Language Function Ability Hard of Hearing Safety Awareness Decreased Safety Awareness Gross Range of Motion Lower Extremity ROM Assessment Left Impaired Impairments c/o LLE pain affecting mobility with resistance/ increase muscle guarding during movement Strength Lower Extremity Strength Assessment Left Impaired Hip 3-/5 Knee 3-/5 Coordination Assessment Gross Coordination Gross Coordination WNL Sensation Assessment Sensation Gross Sensation WNL Muscle Tone Muscle Tone WNL Yes M6 PT-IP Treatment Start: 06/28/20 08:34 Freq: NEEDED Status: Active Protocol: Document 06/29/20 10:53 AB (Rec: 06/29/20 13:06 AB [email or web address]) Physical Therapy Treatment Exercises Exercises Heel Slides Education Education Provided Precautions,Weight Bearing Status,Post-Op Packet,Safety M7 PT-IP Assessment and Plan Start: 06/28/20 08:34 Freq: NEEDED Status: Active Protocol: Document 06/29/20 10:53 AB (Rec: 06/29/20 13:06 AB [email or web address]) PT Summary Assessment and Plan Potential Rehabilitation Potential Fair Status of Condition at Evaluation Evolving Summary Impairments Pain,ROM,Strength,Balance, Coordination,Sensation,Tone, Cognition,Bed Mobility, Transfers,Gait,Activity Tolerance Assessment Summary pt requiring max A x 1-2 and max cues. pt refuses to go to SNF. will conduct caregiver training when appropriate. educated pt regarding equipement needs (FWW, w/c, shower chair. RTS with handles ). will need further assessment do determine safe d /c plan. at this time, recommending SNF but pt is refusing to go to one, will need homehealth PT if pt discharges home. Goals Bed Mobility Goal Standby Assistance Transfer Goal Standby Assistance,Front Wheeled Walker Gait Goal Standby Assistance,Front Wheel Walker Gait Distance 40 Days to Meet Goals 10 Frequency of Treatment Frequency Of Treatment Twice a Day Treatment Plan Physical Therapy Treatment Plan Bed Mobility Training,Transfer Training,Gait Training, Therapeutic Exercise,Balance Retraining,Post Op Education, Discharge Planning,Hot or Cold Pack,Neuromuscular Re-ed, Coordination Retraining,Manual Therapy Other Recommendations and Next Treatment transfers, ambulation, Focus caregiver training Recommendations To Nursing Amount of Assist Needed 2 Person Assist Discharge Recommendations PT Discharge Recommendations Home with 01/02 Assist,Home Health,SNF Rehab Transportation Needs at Discharge Private Vehicle,Wheelchair/ Cabulance
--- NOTE | 2020-06-29 11:35 | P.PN_ITS ---
Subjective Subjective Date Patient Seen: 06/29/20 Interval history: Chart reviewed patient seen and examined. Patient is a 69-year-old female who suffered a left femoral neck fracture. She underwent surgical repair yesterday. Patient tolerated without difficulty. Overnight she had significant pain in her knee. She does note chronic osteoarthritis of the left knee. The patient would like to discharge home and avoid long term at this time. Her major complaint is left knee pain. She notes with ice there has been some improvement. Exam Vital Signs (past 8 hours): - 06/29/20 05:59 06/29/20 07:55 06/29/20 08:19 Temperature 97.0 F L 97.4 F L Pulse Rate 75 78 76 Respiratory Rate 16 16 18 Blood Pressure 105/62 96/54 L Pulse Oximetry 92 98 96 Oxygen Delivery Method Room Air Oxygen Flow Rate 0 Narrative Exam Narrative: Pleasant female resting comfortably in no obvious distress Lungs: Clear to auscultation Cardiac exam: Regular rate and rhythm normal S1-S2 Abdomen: Soft nontender nondistended Extremities: Ice on the left knee, swelling of the knee, left hip incision dry, no lower extremity edema Objective Labs Result Diagrams: 06/29/20 05:15 06/29/20 05:15 Labs: Laboratory Results - last 24 hr 06/29/20 06/29/20 05:15 05:15 WBC 8.8 RBC 3.42 L Hgb 10.5 L Hct 32.0 L MCV 93.6 MCH 30.8 MCHC 32.9 RDW 14.7 Plt Count 158 Neut % (Auto) 82.0 H Lymph % (Auto) 6.9 L [place] % (Auto) 10.8 Eos % (Auto) 0.1 L Baso % (Auto) 0.2 Neut # (Auto) 7200 H Lymph # (Auto) 600 L [place] # (Auto) 1000 H Eos # (Auto) 0 Baso # (Auto) 0 Sodium 129 L Potassium 4.3 Chloride 99 Carbon Dioxide 31 BUN 9 Creatinine 0.66 Estimated GFR > 60.0 BUN/Creatinine Ratio 13.6 Glucose 110 Calcium 8.6 PFSH Medical History Anxiety and depression Surgical History H/O ovarian cystectomy H/O unilateral salpingectomy History of appendectomy History of cholecystectomy Social History household members: spouse Smoking Status: Former smoker alcohol intake: never Assessment & Plan Assessment & Plan narrative: Left femoral neck fracture, mildly displaced, acute, present on admission, likely pathologic -patient slipped off of the 2nd step of her step stool reaching for cookie tins in her kitchen, landing on her left side and suffering a mildly displaced left femoral neck fracture. -orthopedic surgery, Dr. Phelan, consult in the emergency room. Planning for operative interventions either later today or possibly tomorrow morning given the patient did eat just prior to her fall. -patient denies recent symptoms including chest pain, shortness of breath, dyspnea on exertion. EKG shows normal sinus rhythm. Chest x-ray is u nremarkable. Patient is medically optimized prior to surgery. -PT/OT after operative interventions -patient does not want to discharge to SNF,prefers home with home health. -pain control for now with dilauid 1 mg q2 hours. -continue physical therapy and occupational therapy, DC Kahn catheter today, anticipate discharge home tomorrow -knee pain, x-ray per Orthopedic 2. Anixety and depression, chronic, stable - continue home sertraline, patients states she takes medicine 50 mg BID. Will continue here. 3. Hyponatremia, unknown if acute or chronic, present on admission. - mild hyponatremia on admission, 132. Will continue to follow level with AM value. Keep on NS infusion while NPO for OR. Quality VTE Deep Vein Thrombosis/Pulmonary Embolism Present on Admission: No
--- NOTE | 2020-06-29 14:36 | PT.IPTN ---
Current Diagnoses Age-related osteoporosis with current pathological fracture, unspecified site, initial encounter for fracture (06/27/20) Fracture of unspecified part of neck of unspecified femur, initial encounter for closed fracture (06/27/20) Surgery Performed Operation Date: 06/28/20 12:45 Actual Procedures p hip fracture pinning(Left) - Lashawn Novak MD Physical Therapy Treatment Note M2 PT-IP Current Condition Start: 06/28/20 08:34 Freq: NEEDED Status: Active Protocol: Document 06/29/20 10:53 AB (Rec: 06/29/20 13:06 AB [email or web address]) Physical Therapy Current Condition Current Condition Evaluation Date 06/29/20 Treatment Diagnosis L femoral neck fx s/p cannulated screws; difficulty in walking Weight Bearing Status Weight Bearing Status Partial Weight Bearing Allowed Weight Bearing Amount (enter % LLE 50% PWB or #) (%) M3 PT-IP Subjective Start: 06/28/20 08:34 Freq: NEEDED Status: Active Protocol: Document 06/29/20 14:17 KS (Rec: 06/29/20 15:00 KS [id number]) Subjective Physical Therapy Visit Type Type Treatment Note Visit Start Time 14:17 Visit Stop Time 14:36 Total Visit Minutes 19 Number of RETAIL STOCK CLERK Visits 1 Physical Therapy Visit Comments Patient Comments Pt wanting to ambulate and return to bed. Therapy Pain Assessment Pain When Pain Assessed At Rest Pain Present Pain Present Pain Reported Location Left Hip Intensity 8 Scale Used Numeric (0 - 10) Pain Management Techniques Elevation,Re-positioning M4 PT-IP Mobility and Gait Start: 06/28/20 08:34 Freq: NEEDED Status: Active Protocol: Document 06/29/20 14:17 KS (Rec: 06/29/20 15:00 KS [id number]) PT-Bed Mobility Assessment Scooting Scooting to Edge of Bed Contact Guard Assistance PT-Transfer Assessment Sit to and From Stand Sit to and from Stand Minimal Assistance,1 Person Assistance,Use of Upper Extremities Equipment Transfer Assistive Device Front Wheeled Walker Orthotic/Prosthetic Devices or Brace: No Transfers Transfer Destination Bed Transfer Technique Pt ambulated w/ FWW Transfer Ability Level of Assist Minimal Assistance,1 Person Assistance,Use of Upper Extremities Comments Mobility Comments Pt in chair upon arrival from therapy. CGA for scooting to EOC and Min A w/ cues for sit< >stand w/ FWW. Pt denied lightheadedness upon standing. Pt then ambulated ~15 ft w/ FWW in room CGA w/ NWB on LLE. Pt reported fatigue following ambulation but had no LOB. Min A for sit<>sup for LLE assistance. Pt left in bed w/ all needs in reach. Gait Assessment Gait Gait Assistance Required: Contact Guard Assist,1 Person Assist Distance (Feet) 15 Assistive Devices Assistive Device Front Wheeled Walker Orthotic/Prosthetic Devices or Brace: No Factors Limiting Gait Function Factors Limiting Gait Function Decreased Strength,Limited Range of Motion,Pain,Poor Balance Comments Gait Comments Please refer to mobility section for details. Stair Climbing Assessment Comments Stair Climbing Comments not assessed PT-Balance Assessment Sitting Balance and Reactions Static Sitting Balance Ability Good Dynamic Sitting Balance Ability Fair Standing Balance and Reactions Static Standing Balance Ability Fair Dynamic Standing Balance Ability Fair Device Used FWW M5 PT-IP Objective Assessments Start: 06/28/20 08:34 Freq: NEEDED Status: Active Protocol: Document 06/29/20 10:53 AB (Rec: 06/29/20 13:06 AB [id number]) Orientation Orientation/Cognition Level of Alertness Alert Orientation Name,Place,Situation Language Function Ability Hard of Hearing Safety Awareness Decreased Safety Awareness Gross Range of Motion Lower Extremity ROM Assessment Left Impaired Impairments c/o LLE pain affecting mobility with resistance/ increase muscle guarding during movement Strength Lower Extremity Strength Assessment Left Impaired Hip 3-/5 Knee 3-/5 Coordination Assessment Gross Coordination Gross Coordination WNL Sensation Assessment Sensation Gross Sensation WNL Muscle Tone Muscle Tone WNL Yes M6 PT-IP Treatment Start: 06/28/20 08:34 Freq: NEEDED Status: Active Protocol: Document 06/29/20 14:17 KS (Rec: 06/29/20 15:00 KS [id number]) Physical Therapy Treatment Education Education Provided Precautions,Weight Bearing Status,Post-Op Packet,Safety M7 PT-IP Assessment and Plan Start: 06/28/20 08:34 Freq: NEEDED Status: Active Protocol: Document 06/29/20 14:17 KS (Rec: 06/29/20 15:00 KS [id number]) PT Summary Assessment and Plan Potential Rehabilitation Potential Fair Status of Condition at Evaluation Evolving Summary Impairments Pain,ROM,Strength,Balance, Coordination,Sensation,Tone, Cognition,Bed Mobility, Transfers,Gait,Activity Tolerance Progress Towards Goals Slow Progress due to Pain,Slow Progress due to Activity Tolerance Assessment Summary Patient CGA for scooting, Min A for sit<>stand, CGA for ambulation w/ FWW. Pt ambulated ~15 ft w/ FWW and CGA NWB LLE. Min A for sit<> sup for LE assistance into bed . Pt refusing SNF at this time , however unsure if pt will be safe to return home d/t home environment and pt PWB LLE. Pt will require HHPT to improve functional mobility. Goals Bed Mobility Goal Standby Assistance Transfer Goal Standby Assistance,Front Wheeled Walker Gait Goal Standby Assistance,Front Wheel Walker Gait Distance 40 Days to Meet Goals 10 Frequency of Treatment Frequency Of Treatment Twice a Day Treatment Plan Physical Therapy Treatment Plan Bed Mobility Training,Transfer Training,Gait Training, Therapeutic Exercise,Balance Retraining,Post Op Education, Discharge Planning,Hot or Cold Pack,Neuromuscular Re-ed, Coordination Retraining,Manual Therapy Other Recommendations and Next Treatment transfers, ambulation, Focus caregiver training Recommendations To Nursing Amount of Assist Needed 2 Person Assist Discharge Recommendations PT Discharge Recommendations Home with 01/02 Assist,Home Health,SNF Rehab Transportation Needs at Discharge Private Vehicle,Wheelchair/ Cabulance
--- NOTE | 2020-06-29 14:38 | CM.DPNOTE ---
DCP Cont Met w/patient, introduced role. Patient is in good spirits, talkative today, explains that she is indp and active at baseline, has asked that her DIL Hanny come to help her and her once she returns home and DIL is agreeable. This COMMERCIAL PEST CONTROL REPRESENTATIVE and patient chatting about her move from [place] to [place] when this COMMERCIAL PEST CONTROL REPRESENTATIVE was paged overhead and had to leave room. Will return tomorrow to finalize DCP; possibly home w/family and HH (?) vs outpatient PT. Following closely. ANUEL
--- NOTE | 2020-06-29 15:18 | PT-IP ANOTE ---
talked to pt and informed regarding steps to enter the house: 3 steps without rails from the front; has 1 step down from the garage then 2 more steps up to enter the house without rails. informed pt of putting a ramp in. pt also informed PT that she has difficulty getting a w/c. will f/u with pt .
--- NOTE | 2020-06-29 16:07 | OT.IP.EVAL ---
Current Diagnoses Age-related osteoporosis with current pathological fracture, unspecified site, initial encounter for fracture (06/27/20) Fracture of unspecified part of neck of unspecified femur, initial encounter for closed fracture (06/27/20) Surgery Performed Operation Date: 06/28/20 12:45 Actual Procedures p hip fracture pinning(Left) - Lashawn Novak MD Past Medical History (Last Reviewed 06/29/20 @ 10:36 by Cristina Fry PA-C) Anxiety and depression Surgical History (Last Reviewed 06/29/20 @ 10:15 by Cristina Fry PA-C) H/O ovarian cystectomy H/O unilateral salpingectomy History of appendectomy History of cholecystectomy Occupational Therapy Inpatient Evaluation/Re-Eval M1 PT/OT-IP Prior Functional Status Start: 06/28/20 08:34 Freq: NEEDED Status: Active Protocol: Document 06/29/20 16:12 CGR (Rec: 06/29/20 16:26 CGR [id number]) Medical Review Prior Functional Status Medical History Reviewed Yes Communication able to make needs known Mobility and Gait pt stated that she is independent with all mobilities and ambulation without AD Activities of Daily Living and IADL's Pt was IND in all ADLs prior to admit. Social History Household Members spouse Living Arrangements Apartment/Condo Number of Floors (Floors) One Floor Number of Stairs To Enter/Railing? 2 steps without rails to enter from the front 1 step then 2 from the back without rails Home Environment Standard Height Toilet,Tub/ Shower Home Equipment Front Wheel Walker Employment Status Retired Additional Social History Comment daughter will stay with pt to assist her pt just moved to her home 2 weeks ago M2 OT-IP Current Condition Start: 06/29/20 16:12 Freq: Status: Active Protocol: Document 06/29/20 16:12 CGR (Rec: 06/29/20 16:26 CGR [id number]) Occupational Therapy Current Condition Current Condition Evaluation Date 06/29/20 Treatment Diagnosis fall with L femoral neck fx s/ p cannulated screws Diagnosis Onset Date 06/27/20 Weight Bearing Status Weight Bearing Status Partial Weight Bearing Allowed Weight Bearing Amount (enter % 50% or #) (%) M3 OT- IP Subjective and Pain Start: 06/29/20 16:12 Freq: Status: Active Protocol: Document 06/29/20 16:12 CGR (Rec: 06/29/20 16:26 CGR [id number]) OT- Subjective Occupational Therapy Visit Type Type Initial Evaluation Visit Start Time 15:25 Visit Stop Time 16:07 Total Visit Minutes 42 Occupational Therapy Visit Comments Patient Comments I don't want to do it but I have to. OT Pain Assessment Pain When Pain Assessed During Mobility Pain Present Pain Present Pain Reported Location Left Hip Intensity 8 Scale Used Numeric (0 - 10) Management Techniques Apply Cold,Distraction, Modification of Treatment,Re- positioning M4 OT- IP ADL's Start: 06/29/20 16:12 Freq: Status: Active Protocol: Document 06/29/20 16:12 CGR (Rec: 06/29/20 16:26 R [id number]) OT [id number] Comments OT Self-Feeding Comments Not meal time OT ADL-Grooming Comments OT Grooming Comments Pt declined OT ADL-Oral Care Comments Oral Care Comments Pt declined OT ADL-Dressing General Eval Lower Body Dressing Ability Total Assistance Areas Needing Assistance Socks OT ADL-Toileting General Evaluation Toileting Ability Total Assistance Comments OT Toileting Comments Pt with weaver and attempted toielt trasnfer but is unable to get low enough to sit on toilet d/t knee pain. OT ADL-Bathing Comments OT Bathing Comments not performed M5 OT- IP IADL's Start: 06/29/20 16:12 Freq: Status: Active Protocol: Document 06/29/20 16:12 CGR (Rec: 06/29/20 16:26 CGR [id number]) OT-Instrumental Activities of Daily Living Deficits IADL Deficits Identified Deficits Home Safety Awareness Awareness of Need for Assistance at Home Decreased Awareness Ability to Problem Solve Emergency Able to Problem Solve Situations Medication Management Medication Management No Deficits Identified Money Management Money Management No Deficits Identified Meal Preparation Meal Preparation Caregiver Provides Assist Ocean Fishing Guide Ocean Fishing Guide Caregiver Provides Assist Driving Driving Comments 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 OT- IP Functional Cognition Start: 06/29/20 16:12 Freq: Status: Active Protocol: Document 06/29/20 16:12 CGR (Rec: 06/29/20 16:26 R [id number]) Cognitive Factors Limiting Selfcare Function Cognitive Ability Level of Alertness Alert Patient Orientation Name,Age,Birthday,Month,Date, Year,Day of Week,Place, Situation Attention Span Ability Capable of Focused Attention, Capable of Sustained Attention Ability to Follow Commands Able to Follow Multi-Step Commands Memory Description No Deficits Noted Safety Awareness No Deficits Noted OT- Vision and Hearing OT- Hearing Assessment OT- Hearing Assessment WFL OT- Vision Assessment Vision History Cataracts Visual Acuity WFL Visual Attentiveness WFL Occular Pursuits WFL Visual Convergence WFL M7 OT- IP Mobility and Balance Start: 06/29/20 16:12 Freq: Status: Active Protocol: Document 06/29/20 16:12 CGR (Rec: 06/29/20 16:26 CGR [id number]) OT- Bed Mobility Assessment Rolling Level of Assistance Moderate Assistance,1 Person Assistance Supine to Sit Supine to Sit Assist Moderate Assistance,1 Person Assistance Sit to Supine Sit to Supine Assist Moderate Assistance,1 Person Assistance Scooting Scooting to Edge of Bed Minimal Assistance OT-Transfer Assessment Sit to and From Stand Sit to and from Stand Minimal Assistance Transfers Transfer Ability Minimal Assistance Technique Transfer Destination Bed,Toilet Transfer Technique Stand Step Pivot Devices Transfer Assistive Devices Gait Belt,Front Wheeled Walker Comments Mobility Comments Pt is able to maintain NWB with mobility. She was unable to sit on toielt d/t her knee pain. Pt given sheet to assist with bed mobility. OT- Balance Assessment Sitting Balance and Reactions Static Sitting Balance Ability Good Dynamic Sitting Balance Ability Fair M8 OT- IP Objective Assessments Start: 06/29/20 16:12 Freq: Status: Active Protocol: Document 06/29/20 16:12 CGR (Rec: 06/29/20 16:26 CGR [id number]) OT Gross Range of Motion Upper Extremity Range of Motion Assessment Within Functional Limits OT Strength Upper Extremity Strength Assessment Within Functional Limits OT- Coordination Assessment Upper Extremity Finger to Nose Test Within Functional Limits Finger Tapping Test Within Functional Limits OT-Muscle Tone Assessment Muscle Tone WNL Yes OT Sensation Assessment Edema Edema Absent M9 OT- IP Assessment and Plan Start: 06/29/20 16:12 Freq: Status: Active Protocol: Document 06/29/20 16:12 CGR (Rec: 06/29/20 16:26 CGR [id number]) OT Summary Assessment and Plan Potential Rehabilitation Potential Excellent Analytic Complexity at Evaluation Moderate Summary OT Impairments Pain,Range of Motion,Balance, Functional Mobility,Grooming, Dressing,Toileting,Bathing, Toilet Transfers,Shower Transfers,Activity Tolerance Progress Towards Goals Progressing Toward Goals Assessment Summary Pt presents as a moderate complexity evaluation s/p admit for fall and hip fx. Pt underwent 06/28 hip pinning and is currently 50% WB. Pt has 2-3 steps to enter her home and currently only has access to a walker. Discussed the need for ramp, w/c, BSC, and tub transfer bench for home use. Pt refusing SNF at this time. Goals Grooming Goal Independent Dressing Goal Independent Toileting Goal Independent Bathing Goal Independent Toilet Transfer Goal Independent Shower Transfer Goal Independent Days to Meet Goals 10 Frequency of Treatment Frequency Of Treatment Once a Day Treatment Plan OT Treatment Plan ADL Training,Functional Mobility,Patient/Family Education,Discharge Planning Other Treatment Recommendations and Next LB dressing, shower Treatment Focus Discharge Recommendations OT Discharge Recommendations Home with 01/02 Assist Home Equipment Needs ramp entry, 2ww, BSC, tub transfer bench Transportation Needs at Discharge Private Vehicle
[2020-06-30] VITALS (8 sets, daily range): BP systolic 119–133; BP diastolic 61–73; PULSE 88–105; RESP 5–20; TEMP 36.4–37.9; O2SAT 94–98
[2020-06-30] MEDS: OXYCODONE IR 5 MG TABLET PO ×6 (04:12→23:31)
[2020-06-30] MEDS: hydrOXYzine pamoate 25 MG CAPSULE PO ×6 (04:12→23:32)
[2020-06-30 05:40] LABS: Add Manual Diff / Slide Review NO; Basophils Absolute Auto 0 /uL (0-100); Basophils Percent Auto 0.3 % (0-2); Eosinophils Absolute Auto 100 /uL (0-450); Eosinophils Percent Auto 0.7 % (2-4); Hematocrit 32.1 % (36-46); Hemoglobin 10.7 g/dL (12.0-16.0); Lymphocytes Absolute Auto 1200 /uL (1100-4500); Lymphocytes Percent Auto 13.9 % (25-40); Mean Corpuscular HGB Conc 33.2 % (30-36); Mean Corpuscular Hemoglobin 30.9 PG (26-34); Mean Corpuscular Volume 93.1 fL (80-100); Monocytes Absolute Auto 900 /uL (0-900); Monocytes Percent Auto 10.6 % (3-14); Neutrophils Absolute Auto 6200 /uL (1500-7000); Neutrophils Percent Auto 74.5 % (50-75); Platelet Count 166 X10^3/uL (150-400); Red Blood Cell Count 3.44 X10^6/uL (4.0-5.2); Red Cell Distribution Width 14.7 % (11.6-14.8); White Blood Cell Count 8.3 X10^3/uL (4.5-11.0)
[2020-06-30 05:55] LABS: BUN Creatinine Ratio 12.9 (6-22); Blood Urea Nitrogen 9 mg/dL (7-17); Calcium 9.1 mg/dL (8.4-10.2); Carbon Dioxide 32 mmol/L (22-32); Chloride 102 mmol/L (98-107); Estimated Glomerular Filt Rate > 60.0 mL/min (>60); Glucose 106 mg/dL (80-110); HEMOLYSIS < 15 (0-50); Potassium 4.2 mmol/L (3.4-5.1); Sodium 133 mmol/L (137-145)
--- NOTE | 2020-06-30 07:59 | PM.PN.1 ---
Subjective Subjective Date Patient Seen: 06/30/20 Time Patient Seen: 07:59 Interval history: Patient is POD#2 s/p left femoral neck fracture with cannulated screws fixation. Pain has been mild to moderate. Tolerating a diet. Complaining of left knee pain. Known history of osteoarthritis in the left knee. No other complaints. Exam Vital Signs (past 8 hours): - 06/30/20 05:31 Temperature 98.5 F Pulse Rate 88 Respiratory Rate 16 Blood Pressure 122/61 Pulse Oximetry 96 Oxygen Delivery Method Room Air Oxygen Flow Rate 0 Narrative Exam Narrative: Dressings c/d/i. NV intact in LLE Objective Labs Result Diagrams: 06/30/20 05:00 06/30/20 05:00 Labs: Laboratory Results - last 24 hr 06/30/20 06/30/20 05:00 05:00 WBC 8.3 RBC 3.44 L Hgb 10.7 L Hct 32.1 L MCV 93.1 MCH 30.9 MCHC 33.2 RDW 14.7 Plt Count 166 Neut % (Auto) 74.5 Lymph % (Auto) 13.9 L [place] % (Auto) 10.6 Eos % (Auto) 0.7 L Baso % (Auto) 0.3 Neut # (Auto) 6200 Lymph # (Auto) 1200 [place] # (Auto) 900 Eos # (Auto) 100 Baso # (Auto) 0 Sodium 133 L Potassium 4.2 Chloride 102 Carbon Dioxide 32 BUN 9 Creatinine 0.70 Estimated GFR > 60.0 BUN/Creatinine Ratio 12.9 Glucose 106 Calcium 9.1 PFSH Medical History Anxiety and depression Surgical History H/O ovarian cystectomy H/O unilateral salpingectomy History of appendectomy History of cholecystectomy Social History household members: spouse Smoking Status: Former smoker alcohol intake: never Assessment & Plan Assessment & Plan narrative: Patient is POD#2 s/p left femoral neck fracture with cannulated screws. -Work with physical therapy. 50% weight-bearing left lower extremity. -DVT prophylaxis recommending Lovenox 40 mg subcutaneous x4 weeks. -She is complaining of knee pain. Knee films reviewed - advacned OA, no fractures. -Will need outpatient follow-up in [address] Novak for x-rays. Patient has Monocryl sutures and does not require suture removal. Keep dressing clean dry and intact. May change as saturated. Time Spent With Patient Time with patient: 15-24 minutes Quality VTE Deep Vein Thrombosis/Pulmonary Embolism Present on Admission: No
[2020-06-30] MEDS: MULTIVITAMIN 1 TABLET 1 TAB PO (08:32)
[2020-06-30] MEDS: ENOXAPARIN 40 MG/0.4 ML SYRINGE SUBCUT (08:32)
[2020-06-30] MEDS: DOCUSATE 100 MG CAPSULE PO ×2 (08:32→20:07)
[2020-06-30] MEDS: SERTRALINE 50 MG TABLET PO ×2 (08:38→20:07)
--- NOTE | 2020-06-30 10:25 | PT.IPTN ---
Current Diagnoses Age-related osteoporosis with current pathological fracture, unspecified site, initial encounter for fracture (06/27/20) Fracture of unspecified part of neck of unspecified femur, initial encounter for closed fracture (06/27/20) Surgery Performed Operation Date: 06/28/20 12:45 Actual Procedures p hip fracture pinning(Left) - Lashawn Novak MD Physical Therapy Treatment Note M2 PT-IP Current Condition Start: 06/28/20 08:34 Freq: NEEDED Status: Active Protocol: Document 06/29/20 10:53 AB (Rec: 06/29/20 13:06 AB [id number]) Physical Therapy Current Condition Current Condition Evaluation Date 06/29/20 Treatment Diagnosis L femoral neck fx s/p cannulated screws; difficulty in walking Weight Bearing Status Weight Bearing Status Partial Weight Bearing Allowed Weight Bearing Amount (enter % LLE 50% PWB or #) (%) M3 PT-IP Subjective Start: 06/28/20 08:34 Freq: NEEDED Status: Active Protocol: Document 06/30/20 09:29 CLB (Rec: 06/30/20 11:14 CLB [id number]) Subjective Physical Therapy Visit Type Type Treatment Note Visit Start Time 09:29 Visit Stop Time 10:25 Total Visit Minutes 56 Notes Daughter scheduled for CG training today at 1300. Number of HELPER COORDINATOR Visits 2 Physical Therapy Visit Comments Patient Comments Pt agreeable to work with therapy, states she is feeling better today. Therapy Pain Assessment Pain When Pain Assessed At Rest Pain Present Pain Present Pain Reported Location Left Hip Intensity 4 Scale Used Numeric (0 - 10) Pain Management Techniques Elevation,Re-positioning, Timing of Activity with Medications M4 PT-IP Mobility and Gait Start: 06/28/20 08:34 Freq: NEEDED Status: Active Protocol: Document 06/30/20 09:29 CLB (Rec: 06/30/20 11:14 CLB [id number]) PT-Transfer Assessment Sit to and From Stand Sit to and from Stand Minimal Assistance,1 Person Assistance,Use of Upper Extremities Equipment Transfer Assistive Device Front Wheeled Walker Orthotic/Prosthetic Devices or Brace: No Transfers Transfer Destination Chair,Toilet Transfer Technique Pt ambulated w/ FWW Transfer Ability Level of Assist Contact Guard Assistance,1 Person Assistance,Use of Upper Extremities Comments Mobility Comments Pt in chair upon arrival, pt performed GS, QS and AP's. Pt then stood requiring Min A and ambulated to BR, pt sat CGA onto toilet with use of wall rail. Pt able to perform own pericare and stood with use of wall rail Min A. Pt then ambulated ~25ft in room while following PWB CGA before sitting in chair CGA. Pt left in chair with all needs within reach. Gait Assessment Gait Gait Assistance Required: Contact Guard Assist,1 Person Assist Distance (Feet) 25 Assistive Devices Assistive Device Gait Belt,Front Wheeled Walker Orthotic/Prosthetic Devices or Brace: No Factors Limiting Gait Function Factors Limiting Gait Function Decreased Strength,Limited Range of Motion,Pain,Poor Balance Comments Gait Comments Pt able to follow PWB of LLE with heavy UE's use when advancing RLE. Stair Climbing Assessment Comments Stair Climbing Comments Pt having a ramp built tomorrow to enter home with W/ C. PT-Balance Assessment Sitting Balance and Reactions Static Sitting Balance Ability Good Dynamic Sitting Balance Ability Fair Standing Balance and Reactions Static Standing Balance Ability Fair Dynamic Standing Balance Ability Fair Device Used FWW M5 PT-IP Objective Assessments Start: 06/28/20 08:34 Freq: NEEDED Status: Active Protocol: Document 06/29/20 10:53 AB (Rec: 06/29/20 13:06 AB [id number]) Orientation Orientation/Cognition Level of Alertness Alert Orientation Name,Place,Situation Language Function Ability Hard of Hearing Safety Awareness Decreased Safety Awareness Gross Range of Motion Lower Extremity ROM Assessment Left Impaired Impairments c/o LLE pain affecting mobility with resistance/ increase muscle guarding during movement Strength Lower Extremity Strength Assessment Left Impaired Hip 3-/5 Knee 3-/5 Coordination Assessment Gross Coordination Gross Coordination WNL Sensation Assessment Sensation Gross Sensation WNL Muscle Tone Muscle Tone WNL Yes M6 PT-IP Treatment Start: 06/28/20 08:34 Freq: NEEDED Status: Active Protocol: Document 06/30/20 09:29 CLB (Rec: 06/30/20 11:14 CLB [id number]) Physical Therapy Treatment Exercises Exercises Ankle Pumps,Gluteal Sets,Quad Sets Education Education Provided Precautions,Weight Bearing Status,Post-Op Packet,Safety M7 PT-IP Assessment and Plan Start: 06/28/20 08:34 Freq: NEEDED Status: Active Protocol: Document 06/30/20 09:29 CLB (Rec: 06/30/20 11:14 CLB [id number]) PT Summary Assessment and Plan Potential Rehabilitation Potential Fair Status of Condition at Evaluation Evolving Summary Impairments Pain,ROM,Strength,Balance, Coordination,Sensation,Tone, Cognition,Bed Mobility, Transfers,Gait,Activity Tolerance Assessment Summary Pt improving with ablility to bear partial wt through LLE during ambulation. Pt requires Min A for sit-stand and CGA during gait.Pt able to ambulate ~25ft w/FWW/CGA and stated she is having a ramp built tomorrow to enter home. Pt daughter scheduled for CG training today at 1300. Goals Bed Mobility Goal Standby Assistance Transfer Goal Standby Assistance,Front Wheeled Walker Gait Goal Standby Assistance,Front Wheel Walker Gait Distance 40 Days to Meet Goals 10 Treatment Plan Physical Therapy Treatment Plan Bed Mobility Training,Transfer Training,Gait Training, Therapeutic Exercise,Balance Retraining,Post Op Education, Discharge Planning,Hot or Cold Pack,Neuromuscular Re-ed, Coordination Retraining,Manual Therapy Recommendations To Nursing Amount of Assist Needed 1 Person Assist Discharge Recommendations PT Discharge Recommendations Home with / Assist,Home Health,SNF Rehab Transportation Needs at Discharge Private Vehicle,Wheelchair/ Cabulance
--- NOTE | 2020-06-30 11:44 | P.PN_ITS ---
Subjective Subjective Date Patient Seen: 06/30/20 Interval history: The patient is a 69-year-old female admitted to the hospital for left hip fracture following a fall. Patient reports her pain is better controlled. She was able to work with physical therapy and occupational therapy yesterday. She is adamant she does not want to go to alf at discharge. However the patient just started with therapy yesterday and is somewhat concerned about returning home. She developed low-grade fever last evening to 100? Exam Vital Signs (past 8 hours): - 06/30/20 05:31 06/30/20 08:40 Temperature 98.5 F 100 F H Pulse Rate 88 91 H Respiratory Rate 16 20 Blood Pressure 122/61 133/73 Pulse Oximetry 96 98 Oxygen Delivery Method Room Air Oxygen Flow Rate 0 Narrative Exam Narrative: Pleasant female in no acute distress Lungs: Clear to auscultation Cardiac exam: Regular rate and rhythm normal S1-S2 with a 2/6 systolic ejection murmur Abdomen: Soft nontender nondistended Extremities: No edema, dressing dry Objective Labs Result Diagrams: 06/30/20 05:00 06/30/20 05:00 Labs: Laboratory Results - last 24 hr 06/30/20 06/30/20 05:00 05:00 WBC 8.3 RBC 3.44 L Hgb 10.7 L Hct 32.1 L MCV 93.1 MCH 30.9 MCHC 33.2 RDW 14.7 Plt Count 166 Neut % (Auto) 74.5 Lymph % (Auto) 13.9 L [place] % (Auto) 10.6 Eos % (Auto) 0.7 L Baso % (Auto) 0.3 Neut # (Auto) 6200 Lymph # (Auto) 1200 [place] # (Auto) 900 Eos # (Auto) 100 Baso # (Auto) 0 Sodium 133 L Potassium 4.2 Chloride 102 Carbon Dioxide 32 BUN 9 Creatinine 0.70 Estimated GFR > 60.0 BUN/Creatinine Ratio 12.9 Glucose 106 Calcium 9.1 PFSH Medical History Anxiety and depression Surgical History H/O ovarian cystectomy H/O unilateral salpingectomy History of appendectomy History of cholecystectomy Social History household members: spouse Smoking Status: Former smoker alcohol intake: never Assessment & Plan Assessment & Plan narrative: Impression 1. Left hip femoral neck fracture, status post revision with cannulated screws 2. Fracture likely related to underlying osteoporosis 3. Will initiate therapy as an outpatient Continue physical therapy and occupational therapy Continue DVT prophylaxis per surgery Anticipate discharge home tomorrow Depression and anxiety Continue Zoloft Quality VTE Deep Vein Thrombosis/Pulmonary Embolism Present on Admission: No
[2020-06-30] MEDS: SODIUM CHLORIDE 0.9% FLUSH 10 ML IV ×2 (12:07→20:07)
--- NOTE | 2020-06-30 13:39 | CM.DPC ---
Addendum entered by Martina Melara R.N. 06/30/20 15:40: O.T, and P.T. did some transfer training with daughterHanny. O.T. recommending home with home health, and P.T. recommending home with home health, versus assisted. Went ahead and faxed referral over to [facility] and [facility], in case patient changes her mind tomorrow and wants to go to assisted. If home health, which may be most likely, will need to get ortho to sign face to face and see if they can follow, until she gets provider. Patient will also have to decide which home health agency she wants. Original Note: DCP Cont: Met with patient in her room. Introduced self and role. Discussed discharge planning with patient. Patient recently moved to this area from [place], she moved up to [place] to be near her daughter. 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 Discussed possible skilled rehab versus home health. Patient has no current provider, but she is looking at D.O. at [facility]. Discussed skilled, and she mentioned, why do you have to keep asking me that question, I already told you that I don't want to go to rehab. She is concerned about COVID, and also concerned that if a staff member becomes positive, she will be stuck there. Let her know that as case manages, it is in patient's best interest to have a plan B, in case she is not able to go home secondary to weakness. Also, let her know that home health may also be challenging for she does not yet have a primary provider. Patient noted some frustration, stated, all this is happening at once, and I feel overwhelmed. Discussed having orthopedics sign a face to face for her upon discharge, which should be happening tomorrow. Dr. Brown was willing to allow patient to stay another day, but told patient to plan on discharge tomorrow. She will review Medicare Choice List for home health agencies. 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 Gave her phone number of case aide's office in case she has any questions. P: DCP to continue to follow. Discussed with Dr. Brown, and stated that she will most likely discharge tomorrow, and ortho can sign face to face. Martina Melara RN/Chief Information Security Officer
--- NOTE | 2020-06-30 13:59 | PT.IPTN ---
Current Diagnoses Age-related osteoporosis with current pathological fracture, unspecified site, initial encounter for fracture (06/27/20) Fracture of unspecified part of neck of unspecified femur, initial encounter for closed fracture (06/27/20) Surgery Performed Operation Date: 06/28/20 12:45 Actual Procedures p hip fracture pinning(Left) - Lashawn Novak MD Physical Therapy Treatment Note M2 PT-IP Current Condition Start: 06/28/20 08:34 Freq: NEEDED Status: Active Protocol: Document 06/29/20 10:53 AB (Rec: 06/29/20 13:06 AB [id number]) Physical Therapy Current Condition Current Condition Evaluation Date 06/29/20 Treatment Diagnosis L femoral neck fx s/p cannulated screws; difficulty in walking Weight Bearing Status Weight Bearing Status Partial Weight Bearing Allowed Weight Bearing Amount (enter % LLE 50% PWB or #) (%) M3 PT-IP Subjective Start: 06/28/20 08:34 Freq: NEEDED Status: Active Protocol: Document 06/30/20 13:15 CLB (Rec: 06/30/20 14:23 CLB [id number]) Subjective Physical Therapy Visit Type Type Treatment Note Visit Start Time 13:15 Visit Stop Time 13:59 Total Visit Minutes 44 Notes Daughter Hanny present for CG training. Number of SAW EDGE FUSER CIRCULAR Visits 2 Physical Therapy Visit Comments Patient Comments Pt agreeable to do therapy and CG training with daughter. Therapy Pain Assessment Pain When Pain Assessed At Rest Pain Present Pain Present Pain Reported Location Left Hip Intensity 4 Scale Used Numeric (0 - 10) Pain Management Techniques Modification of Treatment,Re- positioning,Timing of Activity with Medications M4 PT-IP Mobility and Gait Start: 06/28/20 08:34 Freq: NEEDED Status: Active Protocol: Document 06/30/20 13:15 CLB (Rec: 06/30/20 14:23 CLB [id number]) PT-Bed Mobility Assessment Sit to Supine Sit to Supine Minimal Assistance,1 Person Assistance PT-Transfer Assessment Sit to and From Stand Sit to and from Stand Contact Guard Assistance, Minimal Assistance,1 Person Assistance,Use of Upper Extremities Equipment Transfer Assistive Device Front Wheeled Walker Orthotic/Prosthetic Devices or Brace: No Transfers Transfer Destination Bed,Toilet Transfer Technique Pt ambulated w/ FWW Transfer Ability Level of Assist Contact Guard Assistance,1 Person Assistance,Use of Upper Extremities Comments Mobility Comments Pt required CGA for sit<>stand from chair and Min A from toilet with use of wall rail. Pt ambulated ~10ft to sink and washed her hands requiring CGA for gait and standing balance. Pt then ambulated ~ 8ft to bed. Pt then required Min A of LLE into bed and was able to scoot to center of bed with bridge and use of RLE. Pt performed therapeutic exercises in supine. Left pt in bed with alarm on all needs within reach and daughter present. Gait Assessment Gait Gait Assistance Required: Contact Guard Assist,1 Person Assist Distance (Feet) 20 Assistive Devices Assistive Device Gait Belt,Front Wheeled Walker Orthotic/Prosthetic Devices or Brace: No Factors Limiting Gait Function Factors Limiting Gait Function Decreased Strength,Limited Range of Motion,Pain,Poor Balance Comments Gait Comments Pt with difficulty this session advancing LLE forward and requiring increased time with gait. Pt fatigues quickly with heavy use of UE's. Stair Climbing Assessment Comments Stair Climbing Comments Pt having a ramp built tomorrow to enter home with W/ C. PT-Balance Assessment Sitting Balance and Reactions Static Sitting Balance Ability Good Dynamic Sitting Balance Ability Fair Standing Balance and Reactions Static Standing Balance Ability Fair Dynamic Standing Balance Ability Fair Device Used FWW M5 PT-IP Objective Assessments Start: 06/28/20 08:34 Freq: NEEDED Status: Active Protocol: Document 06/29/20 10:53 AB (Rec: 06/29/20 13:06 AB [id number]) Orientation Orientation/Cognition Level of Alertness Alert Orientation Name,Place,Situation Language Function Ability Hard of Hearing Safety Awareness Decreased Safety Awareness Gross Range of Motion Lower Extremity ROM Assessment Left Impaired Impairments c/o LLE pain affecting mobility with resistance/ increase muscle guarding during movement Strength Lower Extremity Strength Assessment Left Impaired Hip 3-/5 Knee 3-/5 Coordination Assessment Gross Coordination Gross Coordination WNL Sensation Assessment Sensation Gross Sensation WNL Muscle Tone Muscle Tone WNL Yes M6 PT-IP Treatment Start: 06/28/20 08:34 Freq: NEEDED Status: Active Protocol: Document 06/30/20 13:15 CLB (Rec: 06/30/20 14:23 CLB [id number]) Physical Therapy Treatment Exercises Exercises Ankle Pumps,Gluteal Sets,Quad Sets,Heel Slides,Supine Hip Abduction Education Education Provided Precautions,Weight Bearing Status,Post-Op Packet,Safety M7 PT-IP Assessment and Plan Start: 06/28/20 08:34 Freq: NEEDED Status: Active Protocol: Document 06/30/20 13:15 CLB (Rec: 06/30/20 14:23 CLB [id number]) PT Summary Assessment and Plan Potential Rehabilitation Potential Fair Status of Condition at Evaluation Evolving Summary Impairments Pain,ROM,Strength,Balance, Coordination,Sensation,Tone, Cognition,Bed Mobility, Transfers,Gait,Activity Tolerance Progress Towards Goals Slow Progress due to Activity Tolerance Assessment Summary Pt daughter present for CG training and was able to assist pt with mobility to toilet and sink then to bedside. Pt then required Min A of LLE onto bed. Pt fatigued quickly this session requiring increased time for ambulation in room and had difficulty advancing LLE. Pt's daughter will come for CG training tomorrow morning. Pt does not want to go to SNF rehab and daughter will be able to assist her at home if pt continues to progress mobilitiy. Goals Bed Mobility Goal Standby Assistance Transfer Goal Standby Assistance,Front Wheeled Walker Gait Goal Standby Assistance,Front Wheel Walker Gait Distance 40 Days to Meet Goals 10 Frequency of Treatment Frequency Of Treatment Twice a Day Treatment Plan Physical Therapy Treatment Plan Bed Mobility Training,Transfer Training,Gait Training, Therapeutic Exercise,Balance Retraining,Post Op Education, Discharge Planning,Hot or Cold Pack,Neuromuscular Re-ed, Coordination Retraining,Manual Therapy Other Recommendations and Next Treatment transfers, ambulation, Focus caregiver training Recommendations To Nursing Amount of Assist Needed 1 Person Assist Discharge Recommendations PT Discharge Recommendations Home with / Assist,Home Health,SNF Rehab Transportation Needs at Discharge Private Vehicle,Wheelchair/ Cabulance
--- NOTE | 2020-06-30 14:57 | OT.IP.TRT ---
Current Diagnoses Age-related osteoporosis with current pathological fracture, unspecified site, initial encounter for fracture (06/27/20) Fracture of unspecified part of neck of unspecified femur, initial encounter for closed fracture (06/27/20) Surgery Performed Operation Date: 06/28/20 12:45 Actual Procedures p hip fracture pinning(Left) - Lashawn Novak MD Occupational Therapy Treatment Note M2 OT-IP Current Condition Start: 06/29/20 16:12 Freq: Status: Active Protocol: Document 06/29/20 16:12 CGR (Rec: 06/29/20 16:26 CGR [id number]) Occupational Therapy Current Condition Current Condition Evaluation Date 06/29/20 Treatment Diagnosis fall with L femoral neck fx s/ p cannulated screws Diagnosis Onset Date 06/27/20 Weight Bearing Status Weight Bearing Status Partial Weight Bearing Allowed Weight Bearing Amount (enter % 50% or #) (%) M3 OT- IP Subjective and Pain Start: 06/29/20 16:12 Freq: Status: Active Protocol: Document 06/30/20 14:47 RM (Rec: 06/30/20 14:57 RM [id number]) OT- Subjective Occupational Therapy Visit Type Type Treatment Note Visit Start Time 14:20 Visit Stop Time 14:45 Total Visit Minutes 25 Notes Patient's daughter Hanny present throughout treatment. Occupational Therapy Visit Comments Patient Comments I'm determined to go home. Patient/Caregiver Goals Discharge home with her family . OT Pain Assessment Pain When Pain Assessed During Mobility Pain Present Pain Present Pain Reported Location Left Hip Intensity 8 (5/10 at rest) Scale Used Numeric (0 - 10) M4 OT- IP ADL's Start: 06/29/20 16:12 Freq: Status: Active Protocol: Document 06/30/20 14:47 RM (Rec: 06/30/20 14:57 RM [id number]) OT ADL-Grooming General Evaluation Grooming Ability Standby Assistance Comments OT Grooming Comments Completed hand hygiene at sink with SBA maintaining WB precaution. OT ADL-Toileting General Evaluation Toileting Ability Contact Guard Assistance Devices Toileting Assistive Devices Grab Bars Comments OT Toileting Comments Able to use toilet in BR with cues for LLE positioning to decrease pain with transition on/off. Also provided cues for safe use of FWW during transfer. M7 OT- IP Mobility and Balance Start: 06/29/20 16:12 Freq: Status: Active Protocol: Document 06/30/20 14:47 RM (Rec: 06/30/20 14:57 RM [id number]) OT- Bed Mobility Assessment Rolling Level of Assistance Standby Assistance Supine to Sit Supine to Sit Assist Standby Assistance,Head of Bed Elevated Sit to Supine Sit to Supine Assist Minimal Assistance,1 Person Assistance,Head of Bed Elevated Scooting Scooting to Edge of Bed Standby Assistance Scooting Up and Down in Bed Minimal Assistance,1 Person Assistance OT-Transfer Assessment Sit to and From Stand Sit to and from Stand Contact Guard Assistance OT- Gait Assessment Gait Gait Assistance Required: Contact Guard Assist Able to Maintain Weight Bearing Status Yes During Gait Assistive Devices Assistive Device Front Wheeled Walker Comments Gait Ability Comments Patient able to tolerate ambulation to/from BR and to/ from sink w/ FWW CGA-SBA with no LOB and maintaining LLE WB precaution. M9 OT- IP Assessment and Plan Start: 06/29/20 16:12 Freq: Status: Active Protocol: Document 06/30/20 14:47 RM (Rec: 06/30/20 14:57 RM [id number]) OT Summary Assessment and Plan Potential Rehabilitation Potential Excellent Summary OT Impairments Pain,Range of Motion,Strength, Balance,Functional Mobility, Dressing,Toileting,Bathing, Toilet Transfers,Shower Transfers,Activity Tolerance Progress Towards Goals Progressing Toward Goals Assessment Summary Patient is a 69 year old female demonstrating great motivation and progress. She is mobilizing in and out of bed with SBA-Rashmi and completing ambulation and ADL transfer CGA-SBA w/ FWW. Daughter Hanny present throughout treatment to observe safe mobilization techniques. At this time anticipate patient will be ready to discharge home with caregiver support and recommend OT with patient agreeable. Goals Dressing Goal Independent,Moderate Assistance Bathing Goal Standby Assistance Toilet Transfer Goal Independent Shower Transfer Goal Standby Assistance Patient/Caregiver Education Goal Caregiver Independent Assisting Patient Frequency of Treatment Frequency Of Treatment Once a Day Treatment Plan OT Treatment Plan ADL Training,Functional Mobility,Patient/Family Education,Discharge Planning Other Treatment Recommendations and Next Shower assessment Treatment Focus Discharge Recommendations OT Discharge Recommendations Home with Assistance Other Discharge Recommendations OT Transportation Needs at Discharge Private Vehicle
--- NOTE | 2020-06-30 15:21 | PC.NURSE ---
PT DONG WELL POST OP LEFT HIP - DRESSING CLEAN DRY AND INTACT- +CMS, OXYCODONE AND VISTARIL EFFECTIVE FOR PAIN CONTROL- TAKING DIET FAIR
[2020-07-01] VITALS: BP 122/70; PULSE 82; RESP 17; TEMP 37.3; O2SAT 98
[2020-07-01] MEDS: hydrOXYzine pamoate 25 MG CAPSULE PO ×3 (03:46→12:46)
[2020-07-01] MEDS: OXYCODONE IR 5 MG TABLET PO ×4 (03:46→15:47)
[2020-07-01 04:12] VITALS: BP 136/74; PULSE 91; RESP 19; TEMP 37.4; O2SAT 96
[2020-07-01 07:43] VITALS: BP 109/73; PULSE 88; RESP 16; TEMP 37.1; O2SAT 97
--- NOTE | 2020-07-01 08:13 | P.PN_ITS ---
Subjective Subjective Date Patient Seen: 07/01/20 Time Patient Seen: 08:13 Interval history: Patient's pain is mild. Patient notes anterior hip pain. Her knee pain on the left is resolving. Patient's daughter and are home to assist her. Otherwise without complaints this morning. Exam Vital Signs (past 8 hours): - 07/01/20 04:12 Temperature 99.4 F Pulse Rate 91 H Respiratory Rate 19 Blood Pressure 136/74 Pulse Oximetry 96 Oxygen Delivery Method Room Air Oxygen Flow Rate 0 Narrative Exam Narrative: 69-year-old female sitting comfortably in bedside chair in no apparent distress. Dressing is Clean, dry, intact. Motor functions intact distal left lower extremity. Sensation grossly intact to light touch left lower extremity. Objective Labs Result Diagrams: 06/30/20 05:00 06/30/20 05:00 [facility] Medical History Anxiety and depression Surgical History H/O ovarian cystectomy H/O unilateral salpingectomy History of appendectomy History of cholecystectomy Social History household members: spouse Smoking Status: Former smoker alcohol intake: never Assessment & Plan Post-op Postoperative Procedures: Procedures Operation Date: 06/28/20 12:45 Actual Procedures Side Surgeon p hip fracture pinning Left Lashawn Novak MD Postop day 3. 50% weight-bearing left lower extremity. Lovenox 40 mg subcu for DVT prophylaxis x4 weeks. Follow-up in 2 weeks for x-rays. Patient will mobilize with physical therapy this morning and likely be discharged home later today if stable per hospitalist. Quality VTE Deep Vein Thrombosis/Pulmonary Embolism Present on Admission: No
[2020-07-01] MEDS: SERTRALINE 50 MG TABLET PO (08:17)
[2020-07-01] MEDS: ENOXAPARIN 40 MG/0.4 ML SYRINGE SUBCUT (08:18)
[2020-07-01] MEDS: DOCUSATE 100 MG CAPSULE PO (08:18)
[2020-07-01] MEDS: MULTIVITAMIN 1 TABLET 1 TAB PO (08:18)
[2020-07-01] MEDS: SODIUM CHLORIDE 0.9% FLUSH 10 ML IV (08:18)
--- NOTE | 2020-07-01 08:25 | PM.DS.1 ---
History of Present Illness History of Present Illness Date Patient Seen: 07/01/20 Chief complaint: L Hip pain Narrative: Jeanne Malagon is a 69-year-old female with past medical history of anxiety and depression who presented to the emergency room with a complaint of left hip pain. Patient was baking [place] cookies and was standing on a step stool to reach a kahn in her cabinet, she thought she was on the bottom step of her step stool however she was on the 2nd to bottom. Her foot then slipped and she fell onto her left side. She had immediate pain and could not move. She has a little bit of numbness and tingling that is intermittent in her left foot. She did not hit her head and she denies any neck or back pain. She has had no recent chest pain, shortness of breath, palpitations, nausea, vomiting, abdominal pain, dysuria, or urinary frequency. She states that she has refused osteoporosis treatment with Fosamax in the past and would not want to start now. She takes multiple supplements including calcium and vitamin-D, and sertraline is her only prescribed medication. In the emergency room, her vital signs were unremarkable. CBC was unremarkable, chemistries revealed a mild hyponatremia with a sodium of 132, but no other significant lab abnormality. COVID-19 testing was negative. Type and screen was performed. EKG showed normal sinus rhythm. Chest x-ray was unremarkable and hip x-ray showed a mildly displaced left femoral neck fracture. Patient was admitted, Orthopedic surgery consulted, and she is pending operative fixation at this time. She did eat just prior to her fall, unclear if operative intervention will be later this evening or tomorrow morning. Discharge Providers Provider Date of admission: 06/27/20 16:29 Discharge Date: 07/01/20 Consults: 06/27/20 18:06 Consult to Occupational Therapy Evaluate & Treat Comment: Physician Instructions: Evaluate and treat Consult to Physical Therapy Evaluate & Treat Comment: Physician Instructions: Evaluate and Treat 06/27/20 19:03 Consult to Orthopedic Surgery Routine Comment: Consulting Provider: Lashawn Novak Reason for consultation: hip fx Has provider been notified: Yes 06/28/20 15:52 Consult to Discharge Planning Routine Comment: Consult to Physical Therapy Evaluate & Treat Comment: 50% WB LLE Physician Instructions: Evaluate and Treat Consult to Respiratory Therapy Evaluate & Treat Comment: Physician Instructions: Evaluate and treat 06/29/20 13:09 Consult to Occupational Therapy Evaluate & Treat Comment: Physician Instructions: Evaluate and treat Discharge provider: Clarita Brown MD Summary Hospital Course Discharge Diagnosis: 1. Left hip fracture status post left femur revision with nail placement 2. Osteoporosis 3. Hyponatremia 4. Left knee osteoarthritis Hospital Course: Patient was admitted to the hospital following a fall. She was found to have a left hip fracture. The patient was taken to the OR for definitive treatment. She underwent left femur revision with nail placement. She tolerated the procedure without difficulty. Patient was evaluated by physical therapy occupational therapy. She was able to ambulate. She is 50% nonweightbearing on the left extremity. She did complain of some knee pain. The patient has known osteoarthritis of the left knee. This was x-rayed by Orthopedic surgery and no fracture were identified. The patient was also found to have hyponatremia. Patient had low-grade postoperative fevers. This was felt to be related to postop atelectasis. There was no evidence of infection. Patient made slow but steady recovery was ultimately deemed appropriate for discharge home. She will be discharged home with home health. She has her and daughter will be assisting her at home. She has equipment that she needs as well. Patient is deemed appropriate for discharge at this time. Status at Discharge Cognitive/behavioral status at discharge: oriented Functional status at discharge: uses cane/walker Overall status at discharge: patient is not back to baseline Time Spent with Patient Time spent: Less than 30 minutes Exam Vital Signs (past 8 hours): - 07/01/20 04:12 Temperature 99.4 F Pulse Rate 91 H Respiratory Rate 19 Blood Pressure 136/74 Pulse Oximetry 96 Oxygen Delivery Method Room Air Oxygen Flow Rate 0 Narrative Exam Narrative: Pleasant female in no obvious distress Lungs: Clear to auscultation Cardiac exam: Regular rate and rhythm normal S1-S2 with a 2/6 systolic ejection murmur Abdomen: Soft nontender nondistended Lower extremities: Left knee, normal temperature, no tenderness to palpation, left hip wound dry Objective Labs Result Diagrams: 06/30/20 05:00 06/30/20 05:00 [facility] Medical History Anxiety and depression Surgical History H/O ovarian cystectomy H/O unilateral salpingectomy History of appendectomy History of cholecystectomy Social History household members: spouse Smoking Status: Former smoker alcohol intake: never Discharge Assessment & Plan Assessment and Plan Assessment: 1. Left hip fracture 2. Status post revision of the left femur with nail placed 3. Osteoporosis 4. Osteoarthritis of the left knee 5. Hyponatremia Plan of Treatment: Patient will discharge She will follow-up with orthopedics in 2 weeks Patient will be on 50% weight-bearing status on the left lower extremity She will be on Lovenox 40 mg subQ daily for 4 weeks Discharge Plan Discharge Plan Patient Disposition: Home Health Service Transfer to: [facility] Discharge orders & Medications Prescriptions: New oxycodone 5 mg Tablet 5 mg PO Q3HR PRN (Reason: Pain, Moderate (4-6)) Qty: 20 RF: 0 enoxaparin [Lovenox] 40 mg/0.4 mL Syringe 40 mg SUBCUT DAILY 30 Days RF: 0 Continued sertraline 50 mg Tablet 100 mg PO DAILY RF: 0 multivitamin [A To Z Multivitamin] Tablet 1 tab PO DAILY RF: 0 Follow up/Referrals: Lashawn Novak MD [Physician] - (2 weeks postoperative evaluation) Diet/Activity/Treatments Diet: Diet as Tolerated Skin/Wound/Dressing Care Report to your healthcare provider any signs of infection, such as:: chills, fever and increased pain Other wound treatment: daily dressing changes Quality VTE Deep Vein Thrombosis/Pulmonary Embolism Present on Admission: No
--- NOTE | 2020-07-01 08:47 | PC.NURSE ---
Addendum entered by Payton Toro R.N. 07/01/20 08:49: pt reporting moderate 6/10 pain to left hip area and managed with Oxycodone 5mg and Visteril. Up to BR with 1PA-FWW. R FA PIV flushing without concern. Original Note: pt AO, receptive to care and expressing moderate anxiety with DC information. Surgery has cleared pt for DC pending PT's clearance. pt has stated several times that she is overwhelmed with the amount of information. We have asked her to call her ride (daughter) to be here for discharge education as well as PT. pt working to coordinate. OT talked with pt and confirmed PT/OT plan and will come back to work with pt when family member is in room.
[2020-07-01 09:37] VITALS: O2SAT 97
--- NOTE | 2020-07-01 10:41 | PT.IPTN ---
Current Diagnoses Age-related osteoporosis with current pathological fracture, unspecified site, initial encounter for fracture (06/27/20) Fracture of unspecified part of neck of unspecified femur, initial encounter for closed fracture (06/27/20) Surgery Performed Operation Date: 06/28/20 12:45 Actual Procedures p hip fracture pinning(Left) - Lashawn Novak MD Physical Therapy Treatment Note M2 PT-IP Current Condition Start: 06/28/20 08:34 Freq: NEEDED Status: Active Protocol: Document 06/29/20 10:53 AB (Rec: 06/29/20 13:06 AB [id number]) Physical Therapy Current Condition Current Condition Evaluation Date 06/29/20 Treatment Diagnosis L femoral neck fx s/p cannulated screws; difficulty in walking Weight Bearing Status Weight Bearing Status Partial Weight Bearing Allowed Weight Bearing Amount (enter % LLE 50% PWB or #) (%) M3 PT-IP Subjective Start: 06/28/20 08:34 Freq: NEEDED Status: Active Protocol: Document 07/01/20 10:16 CLB (Rec: 07/01/20 11:05 CLB [id number]) Subjective Physical Therapy Visit Type Type Treatment Note Visit Start Time 10:16 Visit Stop Time 10:41 Total Visit Minutes 25 Number of SILVERING APPLICATOR Visits 4 Physical Therapy Visit Comments Patient Comments Pt willing to do therapy. Therapy Pain Assessment Pain When Pain Assessed During Mobility Pain Present Pain Present Pain Reported Location Left Hip Intensity 7 Scale Used Numeric (0 - 10) Pain Management Techniques Modification of Treatment,Re- positioning,Timing of Activity with Medications M4 PT-IP Mobility and Gait Start: 06/28/20 08:34 Freq: NEEDED Status: Active Protocol: Document 07/01/20 10:16 CLB (Rec: 07/01/20 11:05 [facility]B [id number]) PT-Transfer Assessment Sit to and From Stand Sit to and from Stand Standby Assistance,1 Person Assistance,Use of Upper Extremities Equipment Transfer Assistive Device Gait Belt,Front Wheeled Walker Orthotic/Prosthetic Devices or Brace: No Transfers Transfer Destination Toilet Transfer Technique Pt ambulated w/ FWW Transfer Ability Level of Assist Standby Assistance,1 Person Assistance,Use of Upper Extremities Comments Mobility Comments Pt on toilet in BR upon arrival. Pt stood from toilet SBA with use of wall rail and ambulated to sink w/FWW/SBA. Pt required SBA during hand washing. Pt then ambulated in kat SBA ~100ft w/FWW/SBA with heavy use of UE's and was able to follow PWB during gait . Pt returned to BR sitting SBA onto toilet. Pt left with call light within reach and will call for assist when finished. RN informed of pt progress with mobility and that pt was in BR with call light. Gait Assessment Gait Gait Assistance Required: Standby Assistance,1 Person Assist Distance (Feet) 100 Assistive Devices Assistive Device Gait Belt,Front Wheeled Walker Orthotic/Prosthetic Devices or Brace: No Factors Limiting Gait Function Factors Limiting Gait Function Decreased Strength,Limited Range of Motion,Pain,Poor Balance Comments Gait Comments Pt able to ambulate ~100ft w/ FWW/SBA and able to follow PWB of LLE. Stair Climbing Assessment Comments Stair Climbing Comments Pt having a ramp built tomorrow to enter home with W/ C. PT-Balance Assessment Sitting Balance and Reactions Static Sitting Balance Ability Good Dynamic Sitting Balance Ability Fair Standing Balance and Reactions Static Standing Balance Ability Fair Dynamic Standing Balance Ability Fair Device Used FWW M5 PT-IP Objective Assessments Start: 06/28/20 08:34 Freq: NEEDED Status: Active Protocol: Document 06/29/20 10:53 AB (Rec: 06/29/20 13:06 AB [id number]) Orientation Orientation/Cognition Level of Alertness Alert Orientation Name,Place,Situation Language Function Ability Hard of Hearing Safety Awareness Decreased Safety Awareness Gross Range of Motion Lower Extremity ROM Assessment Left Impaired Impairments c/o LLE pain affecting mobility with resistance/ increase muscle guarding during movement Strength Lower Extremity Strength Assessment Left Impaired Hip 3-/5 Knee 3-/5 Coordination Assessment Gross Coordination Gross Coordination WNL Sensation Assessment Sensation Gross Sensation WNL Muscle Tone Muscle Tone WNL Yes M6 PT-IP Treatment Start: 06/28/20 08:34 Freq: NEEDED Status: Active Protocol: Document 06/30/20 13:15 CLB (Rec: 06/30/20 14:23 CLB [id number]) Physical Therapy Treatment Exercises Exercises Ankle Pumps,Gluteal Sets,Quad Sets,Heel Slides,Supine Hip Abduction Education Education Provided Precautions,Weight Bearing Status,Post-Op Packet,Safety M7 PT-IP Assessment and Plan Start: 06/28/20 08:34 Freq: NEEDED Status: Active Protocol: Document 07/01/20 10:16 CLB (Rec: 07/01/20 11:05 CLB [id number]) PT Summary Assessment and Plan Potential Rehabilitation Potential Fair Status of Condition at Evaluation Evolving Summary Impairments Pain,ROM,Strength,Balance, Coordination,Sensation,Tone, Cognition,Bed Mobility, Transfers,Gait,Activity Tolerance Progress Towards Goals Progressing Toward Goals Assessment Summary Pt improving with gait distance and activity tolerance. Pt able to ambulate SBA ~100ft w/FWW and able to follow PWB with heavy use of UE's. Daughter scheduled for CG training at 1430 today. Goals Bed Mobility Goal Standby Assistance Transfer Goal Standby Assistance,Front Wheeled Walker Gait Goal Standby Assistance,Front Wheel Walker Gait Distance 40 Days to Meet Goals 10 Frequency of Treatment Frequency Of Treatment Twice a Day Treatment Plan Physical Therapy Treatment Plan Bed Mobility Training,Transfer Training,Gait Training, Therapeutic Exercise,Balance Retraining,Post Op Education, Discharge Planning,Hot or Cold Pack,Neuromuscular Re-ed, Coordination Retraining,Manual Therapy Other Recommendations and Next Treatment transfers, ambulation, Focus caregiver training Recommendations To Nursing Amount of Assist Needed 1 Person Assist Discharge Recommendations PT Discharge Recommendations Home with 01/02 Assist,Home Health Transportation Needs at Discharge Private Vehicle
[2020-07-01] MEDS: BISACODYL 5 MG TABLET 10 MG PO (10:55)
--- NOTE | 2020-07-01 12:01 | CM.DANOTE ---
Spoke to patient who requested [facility] for home therapies. Called Dr. Novak to alert her that I was utilizing her for face to face HH authorization. Pt. declines to chose a PCP at this time because she wants more time to assess her options in the community.
[2020-07-01 12:16] VITALS: BP 126/72; PULSE 81; RESP 16; TEMP 36.7; O2SAT 98
[2020-07-01 14:24] VITALS: O2SAT 97
--- NOTE | 2020-07-01 15:11 | PT.IPTN ---
Current Diagnoses Age-related osteoporosis with current pathological fracture, unspecified site, initial encounter for fracture (06/27/20) Fracture of unspecified part of neck of unspecified femur, initial encounter for closed fracture (06/27/20) Surgery Performed Operation Date: 06/28/20 12:45 Actual Procedures p hip fracture pinning(Left) - Lashawn Novak MD Physical Therapy Treatment Note M2 PT-IP Current Condition Start: 06/28/20 08:34 Freq: NEEDED Status: Active Protocol: Document 06/29/20 10:53 AB (Rec: 06/29/20 13:06 AB [id number]) Physical Therapy Current Condition Current Condition Evaluation Date 06/29/20 Treatment Diagnosis L femoral neck fx s/p cannulated screws; difficulty in walking Weight Bearing Status Weight Bearing Status Partial Weight Bearing Allowed Weight Bearing Amount (enter % LLE 50% PWB or #) (%) M3 PT-IP Subjective Start: 06/28/20 08:34 Freq: NEEDED Status: Active Protocol: Document 07/01/20 14:40 CLB (Rec: 07/01/20 15:34 CLB [id number]) Subjective Physical Therapy Visit Type Type Treatment Note Visit Start Time 14:40 Visit Stop Time 15:11 Total Visit Minutes 31 Notes Daughter present for CG training. Number of SHOTBLASTER Visits 5 Physical Therapy Visit Comments Patient Comments Pt willing to do therapy. Therapy Pain Assessment Pain When Pain Assessed During Mobility Pain Present Pain Present Pain Reported Location Left Hip Scale Used did not state Pain Behaviors Wincing Pain Management Techniques Re-positioning,Timing of Activity with Medications M4 PT-IP Mobility and Gait Start: 06/28/20 08:34 Freq: NEEDED Status: Active Protocol: Document 07/01/20 14:40 CLB (Rec: 07/01/20 15:34 CLB [id number]) PT-Bed Mobility Assessment Sit to Supine Sit to Supine Standby Assistance Scooting Scooting to Edge of Bed Standby Assistance PT-Transfer Assessment Sit to and From Stand Sit to and from Stand Standby Assistance,1 Person Assistance,Use of Upper Extremities Equipment Transfer Assistive Device Gait Belt,Front Wheeled Walker Orthotic/Prosthetic Devices or Brace: No Transfers Transfer Destination Chair Transfer Technique Pt ambulated w/ FWW Transfer Ability Level of Assist Standby Assistance,1 Person Assistance,Use of Upper Extremities Comments Mobility Comments Pt in bed requiring SBA for supine to sit using strap to manage LLE. Pt able to scoot herself to the EOB, daughter Hanny donned GB and pt stood using FWW with cues to put hand on bed when standing. Pt stood SBA provided by daughter . Pt then ambulated in room ~ 40ft w/FWW and daughter providing SBA, pt able to follow PWB precaution during gait. Pt is steady during gait with good safety awareness. Pt then sat in chair SBA putting leg forward and reaching back for arms of chair before sitting. Pt then performed seated ther ex. Pt educated on getting into car and how to size FWW once home. Left pt in chair with all needs within reach and daughter Hanny present. Gait Assessment Gait Gait Assistance Required: Standby Assistance,1 Person Assist Distance (Feet) 40 Assistive Devices Assistive Device Gait Belt,Front Wheeled Walker Orthotic/Prosthetic Devices or Brace: No Factors Limiting Gait Function Factors Limiting Gait Function Decreased Strength,Limited Range of Motion,Pain,Poor Balance Comments Gait Comments Pt ambulated ~40ft w/FWW/SBA provided by daughter Hanny. Pt able to follow PWB of LLE during gait. Stair Climbing Assessment Comments Stair Climbing Comments Pt will get into home in W/C up ramp. M5 PT-IP Objective Assessments Start: 06/28/20 08:34 Freq: NEEDED Status: Active Protocol: Document 06/29/20 10:53 AB (Rec: 06/29/20 13:06 AB [id number]) Orientation Orientation/Cognition Level of Alertness Alert Orientation Name,Place,Situation Language Function Ability Hard of Hearing Safety Awareness Decreased Safety Awareness Gross Range of Motion Lower Extremity ROM Assessment Left Impaired Impairments c/o LLE pain affecting mobility with resistance/ increase muscle guarding during movement Strength Lower Extremity Strength Assessment Left Impaired Hip 3-/5 Knee 3-/5 Coordination Assessment Gross Coordination Gross Coordination WNL Sensation Assessment Sensation Gross Sensation WNL Muscle Tone Muscle Tone WNL Yes M6 PT-IP Treatment Start: 06/28/20 08:34 Freq: NEEDED Status: Active Protocol: Document 07/01/20 14:40 CLB (Rec: 07/01/20 15:34 CLB [id number]) Physical Therapy Treatment Exercises Exercises Ankle Pumps,Gluteal Sets,Quad Sets Education Education Provided Precautions,Weight Bearing Status,Post-Op Packet,Safety M7 PT-IP Assessment and Plan Start: 06/28/20 08:34 Freq: NEEDED Status: Active Protocol: Document 07/01/20 14:40 CLB (Rec: 07/01/20 15:34 CLB [id number]) PT Summary Assessment and Plan Potential Rehabilitation Potential Fair Status of Condition at Evaluation Evolving Summary Impairments Pain,ROM,Strength,Balance, Coordination,Sensation,Tone, Cognition,Bed Mobility, Transfers,Gait,Activity Tolerance Assessment Summary Pt is SBA for bed mobility, sit<>stand and gait, pt daughter Hanny able to appropriately assist pt with all mobility. Daughter will be staying with pt as long as needed. Pt will benefit from HHPT upon d/c to increase strength and activity tolerance. Goals Bed Mobility Goal Standby Assistance Transfer Goal Standby Assistance,Front Wheeled Walker Gait Goal Standby Assistance,Front Wheel Walker Gait Distance 40 Days to Meet Goals 10 Frequency of Treatment Frequency Of Treatment Twice a Day Treatment Plan Physical Therapy Treatment Plan Bed Mobility Training,Transfer Training,Gait Training, Therapeutic Exercise,Balance Retraining,Post Op Education, Discharge Planning,Hot or Cold Pack,Neuromuscular Re-ed, Coordination Retraining,Manual Therapy Recommendations To Nursing Amount of Assist Needed 1 Person Assist Discharge Recommendations PT Discharge Recommendations Home with 01/02 Assist,Home Health Transportation Needs at Discharge Private Vehicle
--- NOTE | 2020-07-01 15:31 | OT.IP.TRT ---
Current Diagnoses Age-related osteoporosis with current pathological fracture, unspecified site, initial encounter for fracture (06/27/20) Fracture of unspecified part of neck of unspecified femur, initial encounter for closed fracture (06/27/20) Surgery Performed Operation Date: 06/28/20 12:45 Actual Procedures p hip fracture pinning(Left) - Lashawn Novak MD Occupational Therapy Treatment Note M2 OT-IP Current Condition Start: 06/29/20 16:12 Freq: Status: Active Protocol: Document 06/29/20 16:12 CGR (Rec: 06/29/20 16:26 CGR [id number]) Occupational Therapy Current Condition Current Condition Evaluation Date 06/29/20 Treatment Diagnosis fall with L femoral neck fx s/ p cannulated screws Diagnosis Onset Date 06/27/20 Weight Bearing Status Weight Bearing Status Partial Weight Bearing Allowed Weight Bearing Amount (enter % 50% or #) (%) M3 OT- IP Subjective and Pain Start: 06/29/20 16:12 Freq: Status: Active Protocol: Document 07/01/20 15:36 [facility] (Rec: 07/01/20 15:49 [facility] [id number]) OT- Subjective Occupational Therapy Visit Type Type Treatment Note Visit Start Time 08:30 Visit Stop Time 15:31 Total Visit Minutes 41 Notes Pt seen for split session, in the afternoon for caregiver training with her daughter. Occupational Therapy Visit Comments Patient Comments Pt a bit overwhelmed in AM due to miscommunication regarding caregiver training, able to clarify that pt's' daughter to come at 2:30pm for caregiver training and then discharge home. Patient/Caregiver Goals TO go home. OT Pain Assessment Pain When Pain Assessed At Rest Pain Present Pain Present Denied Pain M4 OT- IP ADL's Start: 06/29/20 16:12 Freq: Status: Active Protocol: Document 07/01/20 15:36 [facility] (Rec: 07/01/20 15:49 [facility] [id number]) OT DVA-[id number]-[id number] General Evaluation Self-Feeding Ability Independent OT ADL-Grooming Comments OT Grooming Comments not performed OT ADL-Dressing General Eval Lower Body Dressing Ability Maximum Assistance Areas Needing Assistance Underpants/Brief,Socks Assistive Devices Dressing Assistive Devices Manager [employer] Comments OT Dressing Comments Pt MAX A for right LE management needs and use of shoe dresser to assist. Pt needing more assist when putting on pants and another layer on. Pt 's daughter able to safely assist pt for all needs with good safety. OT ADL-Toileting General Evaluation Toileting Ability Minimal Assistance Devices Toileting Assistive Devices Grab Bars Comments OT Toileting Comments Pt needing NHAN for to help pull up pants up over her hips . OT ADL-Bathing Comments OT Bathing Comments Pt states already showered last night. Pt's daughter able to pick up man tub bench. M5 OT- IP IADL's Start: 06/29/20 16:12 Freq: Status: Active Protocol: Document 06/29/20 16:12 [facility]GR (Rec: 06/29/20 16:26 [facility] [id number]) OT-Instrumental Activities of Daily Living Deficits IADL Deficits Identified Deficits Home Safety Awareness Awareness of Need for Assistance at Home Decreased Awareness Ability to Problem Solve Emergency Able to Problem Solve Situations Medication Management Medication Management No Deficits Identified Money Management Money Management No Deficits Identified Meal Preparation Meal Preparation Caregiver Provides Assist Biomedical Service Engineer Biomedical Service Engineer Caregiver Provides Assist 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 Pt's daughter aware to provide supervision and assist as needed. M7 OT- IP Mobility and Balance Start: 06/29/20 16:12 Freq: Status: Active Protocol: Document 07/01/20 15:36 [facility] (Rec: 07/01/20 15:49 [facility] [id number]) OT-Transfer Assessment Sit to and From Stand Sit to and from Stand Standby Assistance,Minimal Assistance Transfers Transfer Ability Standby Assistance,Contact Guard Assistance,1 Person Assistance Technique Transfer Destination Chair,Toilet Devices Transfer Assistive Devices Gait Belt,Front Wheeled Walker Comments Mobility Comments Pt able to safely do 50% weight bearing on RLE during mobility needs with FWW. Able to educated pt easier to help get into the car if the seat is pushed back and a trash bag over the seat can make it easier to turn to get into the car. OT- Balance Assessment Sitting Balance and Reactions Static Sitting Balance Ability Normal Dynamic Sitting Balance Ability Good M8 OT- IP Objective Assessments Start: 06/29/20 16:12 Freq: Status: Active Protocol: Document 06/29/20 16:12 [facility] (Rec: 06/29/20 16:26 [facility] [id number]) OT Gross Range of Motion Upper Extremity Range of Motion Assessment Within Functional Limits OT Strength Upper Extremity Strength Assessment Within Functional Limits OT- Coordination Assessment Upper Extremity Finger to Nose Test Within Functional Limits Finger Tapping Test Within Functional Limits OT-Muscle Tone Assessment Muscle Tone WNL Yes OT Sensation Assessment Edema Edema Absent M9 OT- IP Assessment and Plan Start: 06/29/20 16:12 Freq: Status: Active Protocol: Document 07/01/20 15:36 [facility] (Rec: 07/01/20 15:49 [facility] [id number]) OT Summary Assessment and Plan Potential Rehabilitation Potential Excellent Summary OT Impairments Pain,Range of Motion,Strength, Balance,Functional Mobility, Dressing,Toileting,Bathing, Toilet Transfers,Shower Transfers,Activity Tolerance Progress Towards Goals Progressing Toward Goals Assessment Summary Pt's daughter present for caregiver training and able to get 2 wc, bed rail, and transfer bench for pt to use at home. In addition they already have a FWW and BSC. Pt to go home with daughter to assist. Frequency of Treatment Frequency Of Treatment Once a Day Treatment Plan OT Treatment Plan ADL Training,Functional Mobility,Patient/Family Education,Discharge Planning Discharge Recommendations OT Discharge Recommendations Home with Assistance,Home Health Home Equipment Needs ramp entry, 2ww, BSC, tub transfer bench,wc Transportation Needs at Discharge Private Vehicle
--- NOTE | 2020-07-01 16:27 | PC.NURSE ---
Discharge note: Pt given belongings and D/C instructions @[id number], pt expresses understanding with daughter in room. IV d/c and patient taken to car via wheelchair with DEHAIRER.
== END 2020-07-01 16:05 | disposition home or self-care (01) | DRG 481 ==
LOC: ED 15:35 → AC 16:29
PROVIDERS: Orthopaedic Surgery Foot and Ankle Surgery; Admitting Provider Internal Medicine; Emergency Provider Emergency Medicine; Referring Provider Emergency Medicine; Visit Provider Internal Medicine
PROC: 0QS704Z Reposition Left Upper Femur with Internal Fixation Device, Open Approach (ICD-10-PCS; principal; 2020-06-28 12:45)
DX: M84.452A Pathological fracture, left femur, initial encounter for fracture (principal); E87.1 Hypo-osmolality and hyponatremia; F41.9 Anxiety disorder, unspecified; F32.9 Major depressive disorder, single episode, unspecified; W17.89XA Other fall from one level to another, initial encounter; Y92.000 Kitchen of unspecified non-institutional (private) residence as the place of occurrence of the external cause
CPT/HCPCS: 36415; 71045; 73502; 73560; 76000; 80048; 80053; 83690; 85025; 86850; 86900; 86901; 87635; 93005; 93010; 96361; 96374; 96375; 97110; 97116; 97162; 97166; 97530; 97535; 99284; J0690; J1170; J1650; J2270; J2274; J2405; J2704

== ENCOUNTER → 2020-07-24 10:15 | Outpatient (CLI) | payer MEDICARE, OTHER, SELFPAY ==
[2020-07-19 15:37] VITALS: BMI 24.9
[2020-07-24 11:01] LABS: COVID19 -Nasal RAPID Negative (Negative)
== END ==
PROVIDERS: Visit Provider Physician Assistant
DX: Z20.822 Contact with and (suspected) exposure to COVID-19 (principal)
CPT/HCPCS: 87635

== ENCOUNTER → 2020-07-24 10:21 | Outpatient (CLI) | payer MEDICARE, OTHER, SELFPAY ==
[2020-07-19 15:37] VITALS: BMI 24.9
[2020-07-24 11:26] LABS: Add Manual Diff / Slide Review NO; Basophils Absolute Auto 100 /uL (0-100); Basophils Percent Auto 1.1 % (0-2); Eosinophils Absolute Auto 100 /uL (0-450); Eosinophils Percent Auto 0.8 % (2-4); Hematocrit 39.5 % (36-46); Hemoglobin 12.8 g/dL (12.0-16.0); Lymphocytes Absolute Auto 1500 /uL (1100-4500); Lymphocytes Percent Auto 23.5 % (25-40); Mean Corpuscular HGB Conc 32.4 % (30-36); Mean Corpuscular Hemoglobin 30.2 PG (26-34); Mean Corpuscular Volume 93.4 fL (80-100); Monocytes Absolute Auto 500 /uL (0-900); Monocytes Percent Auto 8.4 % (3-14); Neutrophils Absolute Auto 4200 /uL (1500-7000); Neutrophils Percent Auto 66.2 % (50-75); Platelet Count 277 X10^3/uL (150-400); Red Blood Cell Count 4.23 X10^6/uL (4.0-5.2); Red Cell Distribution Width 14.9 % (11.6-14.8); White Blood Cell Count 6.4 X10^3/uL (4.5-11.0)
[2020-07-24 11:43] LABS: BUN Creatinine Ratio 25.3 (6-22); Blood Urea Nitrogen 20 mg/dL (7-17); Calcium 10.3 mg/dL (8.4-10.2); Carbon Dioxide 33 mmol/L (22-32); Chloride 100 mmol/L (98-107); Estimated Glomerular Filt Rate > 60.0 mL/min (>60); Glucose 98 mg/dL (80-110); HEMOLYSIS < 15 (0-50); Potassium 4.2 mmol/L (3.4-5.1); Sodium 138 mmol/L (137-145)
== END ==
PROVIDERS: Referring Provider Orthopaedic Surgery; Visit Provider Orthopaedic Surgery
DX: Z01.812 Encounter for preprocedural laboratory examination (principal); Z20.822 Contact with and (suspected) exposure to COVID-19
CPT/HCPCS: 36415; 80048; 85025; 87635

== ENCOUNTER 2020-07-26 06:10 | Day surgery (SDC) | payer MEDICARE, OTHER, SELFPAY ==
[2020-07-19 15:37] VITALS: BMI 24.9
[2020-07-26] VITALS (18 sets, daily range): BP systolic 69–115; BP diastolic 42–64; PULSE 58–87; RESP 11–19; TEMP 35.8–37.2; O2SAT 95–99; BMI 26.2; BMI 27.3
--- NOTE | 2020-07-26 | DI.RAD.S_ITS ---
PROCEDURE: XR PELVIS 1-2V INDICATIONS: INTEROPERTIVE LEFT HIP TECHNIQUE: Intra-operative view of the pelvis and hip acquired. COMPARISON: None. FINDINGS: Bones: Intraoperative devices prior to placement of arthroplasty prostheses are in expected positions. No fractures or suspicious bony lesions. Soft tissues: Overlying surgical retractors are present, along with other intraoperative changes. IMPRESSION: Expected intraoperative changes for left hip arthroplasty placement Dictated by: Kala Sr MD, PhD on 07/26/2020 at 10:30 Approved by: Kala Sr MD, PhD on 07/26/2020 at 10:30
--- NOTE | 2020-07-26 06:00 | DI.RAD.S_ITS ---
PROCEDURE: XR HIP W PEL IF DONE LT 2V INDICATIONS: post operative left hip TECHNIQUE: 2 views of the hip were acquired. COMPARISON: [facility], CR, XR PELVIS 1-2V, 07/26/2020, 9:26. [facility], CR, XR HIP W PEL IF DONE LT 2V, 06/28/2020, 14:12. [facility], CR, XR HIP W PEL IF DONE LT 2V, 06/27/2020, 15:26. FINDINGS: Bones: No fractures or dislocations. No suspicious bony lesions. The visualized pelvic ring appears intact. Soft tissues: No suspicious soft tissue calcifications or masses. IMPRESSION: Normal alignment after left total hip arthroplasty today. A surgical drain overlies the operative bed. Dictated by: Sonny Fry M.D. on 07/26/2020 at 14:30 Approved by: Sonny Fry M.D. on 07/26/2020 at 14:31
[2020-07-26] MEDS: PREGABALIN 75 MG CAPSULE PO (06:59)
[2020-07-26] MEDS: CELECOXIB 200 MG CAPSULE PO (06:59)
[2020-07-26] MEDS: ACETAMINOPHEN 325 MG TABLET 975 MG PO (06:59)
[2020-07-26] MEDS: LACTATED RINGERS 1,000 ML 42 ML IV ×3 (07:00→10:57)
[2020-07-26] MEDS: VANCOMYCIN 1,000 MG/200 ML PIGGYBACK 200 MG IV (07:05)
--- NOTE | 2020-07-26 07:58 | PM.PREOP ---
Pre-operative Note COVID-19 COVID-19 status: Negative Interval Note History & Physical reviewed/Exam performed by Physician: Yes Changes to H&P: No
--- NOTE | 2020-07-26 07:59 | PM.OP.1 ---
Operative Date/Time/Diagnoses Date of procedure: 07/26/20 Time of procedure: 07:59 Pre-op diagnosis: Left femoral neck fracture status post open reduction internal fixation with failure of bone Post-op diagnosis: same Procedure & Clinicians Procedure: removal of internal fixation left hip, left total hip arthroplasty Same procedure as scheduled: Yes Indications: The patient has eye history of a left femoral neck fracture. She was treated with open reduction internal fixation and had some collapse of her femoral neck into varus with failure of the bone and failure of union. The patient has requested total hip replacement. The risks, benefits and alternatives to surgery were discussed with the patient prior to proceeding. Risks discussed included, but were not limited to, failure to relieve pain, leg length discrepancy, dislocation, stiffness, infection, nerve damage, deep venous thrombosis, pulmonary embolism, stroke, coma, heart attack, permanent paralysis and , as well as the potential need for eventual revision of the prosthetic. Surgeon: Sagrario Howard Ironworker Helper Shop: Anthony Cortes Anesthesia Type: General and Spinal Operative Notes Findings: Nonunion left femoral neck fracture, soft bone, adequate stability Closure Type: primary Specimen(s): none sent Prosthetic devices, grafts, tissues, transplants, or devices: [employer]hew R3 50 cup, Synergy size 15 standard offset, Oxinium head +4 by 32, one 15 mm screw Applied: drain(s) Estimated Blood Loss (mL): 250 Blood products transfused: none Procedure in detail: The patient was seen in the pre-operative area, where the patient identified the left hip as the operative site and this was marked with my initials. The patient received pre-operative antibiotics and was taken to the operating room and placed on the operative table in the right lateral decubitus position after satisfactory anesthesia. A bag builder out was performed. The left leg was prepared from the ankle to the iliac crest with ChloroPrep in the usual fashion and draped through sterile drapes. The hip was approached through an approximately 24 cm incision centered over the greater trochanter and curving gently posteriorly as it went proximally. This was carried sharply to the fascia chandler, which was divided and retracted with a self retaining retractor. The trochanteric bursa was excised with care being taken to avoid the sciatic nerve, which was identified and protected throughout the case. The short external rotators were incised and the capsulomuscular flap was raised and tagged for later repair. The hip was dislocated. The screw heads were carefully identified and the screws were removed without difficulty. A femoral neck osteotomy performed approximately 15 mm above the lesser trochanter. the fracture had not healed. There was no specific screw cutout of the femoral head. The head was removed without difficulty. Retractors were placed around the femur. The canal was opened with a box cutting osteotome, followed by a T handled reamer and a lateralizing reamer. The chili pepper broach was then used, followed by sequential broaching until there was good stability of the broach in the femur. A Synergy was selected because of prior fracture and known osteoporosis. Retractors were placed to expose the acetabulum. The labrum and central soft tissues were removed. Reaming was performed initially going up in 2 mm increments, then 1 mm increments until good bite was obtained with an odd sized reamer. The cup 1 mm larger than the last reamer was then inserted using the appropriate anteversion guides. She had very soft bone in her acetabulum. Her cup was further stabilized with a single screw. A trial neutral liner was placed. The broach was placed in the canal. A trial head and neck were then placed and the hip relocated and checked for leg length and stability. An intraoperative film confirmed the component position and no evidence of fracture. The patient was stable in the position of sleep, of squatting, and could be put through a range of motion with 45 degrees internal rotation without dislocation. At 90 degrees flexion, internal rotation to 70? was possible before dislocation. This was felt to be satisfactory and the appropriate components were opened, and the trials were removed. The acetabular liner was impacted into position. the stem was checked and was felt I could go up to a size 15. It was reamed for a 15 in the broach was inserted without difficulty. The final stem was then impacted into the prepared femoral canal. A brief Betadine soak was performed while trialing with head options. The hip was meticulously irrigated with normal saline. Finally the femoral head was impacted onto the stem. The acetabulum was cleared of all material and the hip relocated one final time. The capsulomuscular flap was then repaired to the greater trochanter though an awl hole using the tag sutures. The short external rotators were repaired with a nonabsorbable suture. A deep drain was placed and brought out anteriorly. The fascia chandler was closed with Vicryl. The subcutaneous layer was closed with barbed sutures and SteriStrips. An Aquacel Ag dressing was applied and the patient was taken to recovery having tolerated the procedure well. Complications: none Post-operative Condition: stable Disposition: Acute Care Plan for aftercare: The patient will be maintained on a standard total hip replacement protocol with weight bearing as tolerated and posterior hip precautions. The patient will receive Aspirin and sequential compression devices for DVT prophylaxis. The patient will be discharged home when safe for the home environment.
[2020-07-26] MEDS: CEFAZOLIN 2 GM/100 ML FROZ.PIGGY IV ×2 (08:10→16:36)
[2020-07-26] MEDS: TRANEXAMIC ACID 1,000 MG VIAL 2000 MG INJ ×2 (08:23→10:02)
--- NOTE | 2020-07-26 08:41 | SUR.OPER ---
Lateral on padded OR bed. Gel axillary roll. Arms secured on padded armboard with pillow supporting top arm. Padded hip positioner braces x4 - anterior and posterior chest and pelvis. Additional gel pad used anterior pelvis. Gel pad under bottom leg from knee to foot and secured with tape over sheet.
[2020-07-26] MEDS: BUPIVACAINE 0.25% W/ EPI 30 ML VIAL 60 ML INJ (08:53)
[2020-07-26] MEDS: SODIUM CHLORIDE IRRIG SOLUTION 250 ML, POVIDONE-IODINE SPONGE STICKS 1 APPLIC IRR (08:54)
[2020-07-26] MEDS: BUPIVACAINE LIPOSOME 266 MG/20 ML VIAL INJ (08:55)
[2020-07-26] MEDS: SODIUM CHLORIDE IRRIG SOLUTION 250 ML, EPINEPHrine 1 MG IRR (09:12)
--- NOTE | 2020-07-26 11:21 | SUR.PHASEI ---
Report to Mireya Hare
[2020-07-26] MEDS: LACTATED RINGERS 1,000 ML 125 ML IV ×2 (12:07→20:31)
--- NOTE | 2020-07-26 12:07 | SUR.PHASEI ---
Pt transferred up to room 212 without difficulty. Care assumed by Mireya KOHLER. Bed in locked and low position and pt in NAD.
[2020-07-26] MEDS: hydrOXYzine pamoate 25 MG CAPSULE PO (13:05)
[2020-07-26] MEDS: IBUPROFEN 400 MG TABLET PO ×3 (13:05→20:22)
[2020-07-26] MEDS: ONDANSETRON 4 MG ODT PO (13:44)
--- NOTE | 2020-07-26 14:49 | PC.NURSE ---
Admit note: Patient admitted to room 212 S/P revision of left hip pinning from ORIF on 06/28. Awake, alert, and pleasantly cooperative. VSS and afebrile. BP low 90's systolic, asymptomatic. States her baseline BP is 100 systolic. IVFs and SCDs initiated upon arrival. Nausea x 1, medicated with Zofran ODt with relief. Oriented to room ,environment, and plan of care. CELIA dressing CDI. Hemovac secured. Call light within reach.
[2020-07-26] MEDS: ACETAMINOPHEN 325 MG TABLET 650 MG PO ×2 (15:06→20:22)
--- NOTE | 2020-07-26 16:41 | PT.IIE ---
Current Diagnoses Other intraoperative and postprocedural complications and disorders of the musculoskeletal system (07/26/20) Fracture of unspecified part of neck of left femur, subsequent encounter for closed fracture with routine healing (07/26/20) Surgery Performed Operation Date: 07/26/20 07:45 Actual Procedures p Total Hip Arthroplasty, external removal of internal fixation device from left proximal femur(Left) - Sagrario Howard MD Surgical History (Last Reviewed 07/01/20 @ 08:14 by Anthony Cortes PA-C) H/O ovarian cystectomy H/O unilateral salpingectomy History of appendectomy History of cholecystectomy Medical History (Last Reviewed 07/01/20 @ 08:14 by Anthony Cortes PA-C) Anxiety and depression Physical Therapy Inpatient Evaluation/Re-Eval M1 PT/OT-IP Prior Functional Status Start: 07/26/20 14:04 Freq: NEEDED Status: Active Protocol: Document 07/26/20 16:03 HH (Rec: 07/26/20 16:40 [id number]) Medical Review Prior Functional Status Medical History Reviewed Yes Diet/Fluid Consistency Regular Communication no deficits noted. able to make needs known Mobility and Gait Pt had her ORIF in June and DC home after with 50% WB on LLE. She was able to mobilize with FWW including transfers and ambulation at home independently Activities of Daily Living and IADL's IND with ADLs, assisted in donning socks and IADLs after her first sx Social History Household Members spouse Living Arrangements House Number of Floors (Floors) One Floor Number of Stairs To Enter/Railing? 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 Pt will plan to do sponge bathing and will sleep in recliner if needed. Dtr will stay with pt assist her if needed M2 PT-IP Current Condition Start: 07/26/20 14:04 Freq: NEEDED Status: Active Protocol: Document 07/26/20 16:03 HH (Rec: 07/26/20 16:40 [id number]) Physical Therapy Current Condition Current Condition Evaluation Date 07/26/20 Treatment Diagnosis L PEÑA (post approach), difficulty in walking Onset Date 07/26/20 Precautions Posterior Hip Precautions No Hip Flexion > 90 degrees,No Hip Internal Rotation,No Hip Adduction Weight Bearing Status Weight Bearing Status Weight Bear as Tolerated M3 PT-IP Subjective Start: 07/26/20 14:04 Freq: NEEDED Status: Active Protocol: Document 07/26/20 16:03 (Rec: 07/26/20 16:40 [id number]) Subjective Physical Therapy Visit Type Type Initial Evaluation Visit Start Time 15:31 Visit Stop Time 16:00 Total Visit Minutes 29 Notes at bedside Number of HAND MIXER Visits 0 Physical Therapy Visit Comments Patient Comments I want to use the bathroom Patient Goals to return home once she is medically stable. Therapy Pain Assessment Pain Present Pain Present Denied Pain M4 PT-IP Mobility and Gait Start: 07/26/20 14:04 Freq: NEEDED Status: Active Protocol: Document 07/26/20 16:03 (Rec: 07/26/20 16:40 [id number]) PT-Bed Mobility Assessment Supine to Sit Supine to Sit Contact Guard Assistance, Bedrails Scooting Scooting to Edge of Bed Contact Guard Assistance PT-Transfer Assessment Sit to and From Stand Sit to and from Stand Contact Guard Assistance,1 Person Assistance,Use of Upper Extremities Equipment Transfer Assistive Device Gait Belt,Front Wheeled Walker Orthotic/Prosthetic Devices or Brace: No Transfers Transfer Destination Chair,Bedside Commode Transfer Technique Stand Step Pivot Transfer Ability Level of Assist Contact Guard Assistance,1 Person Assistance,Use of Upper Extremities Comments Mobility Comments Pt was in bed upon PT arrival. Spouse at bedside. BP at 92/ 62 in supine. Pt stated that her basline is 100s/50s. Pt was eager to get up and she was able to recall 3/3 post op precautions. Pt then completed supine to semi long sit position followed by using R LE to lift and pivot her LLE towards L EOB inependently . Pt then sat at EOB and was able to stand up with FWW CGA. Pt stood in place for a minute for lateral weight shift. She then requested to use BSC to void so she stand step pivoted to her R side and safely descend herself by using BSC armrests. She c/o dizziness and her BP 84/54 in seated and down 67/50 at one point. 3rd measurement was 90/ 58 after she voided. She then stood up again with stagger stance and FWW CGA. She then slowly completed stand step pivot 180 degrees and sat down at bedside chair. Chair was reclined and her dizziness was resolved. BP at 92/58. Call light placed within reach. Handed pt off to RN for assessment. Gait Assessment Gait Gait Assistance Required: Contact Guard Assist Distance (Feet) 2 Able to Maintain Weight Bearing Status Yes During Gait Assistive Devices Assistive Device Gait Belt,Front Wheeled Walker Orthotic/Prosthetic Devices or Brace: No Gait Deviations General Gait Pattern Antalgic,Decreased Stride Length,Decreased Feet Clearance,Step-to Gait Factors Limiting Gait Function Factors Limiting Gait Function Decreased Activity Tolerance, Decreased Strength,Limited Range of Motion,Pain,Poor Balance Comments Gait Comments see mobility comments. Stair Climbing Assessment Comments Stair Climbing Comments pt has ramp entrance PT-Balance Assessment Sitting Balance and Reactions Static Sitting Balance Ability Normal Dynamic Sitting Balance Ability Normal Standing Balance and Reactions Static Standing Balance Ability Good Dynamic Standing Balance Ability Good Device Used FWW M5 PT-IP Objective Assessments Start: 07/26/20 14:04 Freq: NEEDED Status: Active Protocol: Document 07/26/20 16:03 (Rec: 07/26/20 16:40 [id number]) Orientation Orientation/Cognition Level of Alertness Alert Orientation Name,Age,Birthday,Month,Date, Year,Day of Week,Place, Situation Language Function Ability No Deficits Noted Safety Awareness Understands Safety Issues Memory Description No Deficits Noted Gross Range of Motion Lower Extremity ROM Assessment Within Functional Limits Strength Lower Extremity Strength Assessment Left Impaired Hip 4-/5 Knee 4-/5 Coordination Assessment Gross Coordination Gross Coordination WNL Sensation Assessment Sensation Gross Sensation WNL Muscle Tone Muscle Tone WNL Yes M6 PT-IP Treatment Start: 07/26/20 14:04 Freq: NEEDED Status: Active Protocol: Document 07/26/20 16:03 (Rec: 07/26/20 16:40 [id number]) Physical Therapy Treatment Exercises Exercises Ankle Pumps,Gluteal Sets,Quad Sets,Heel Slides,Straight Leg Raises Education Education Provided Precautions,Weight Bearing Status,Post-Op Packet,Safety M7 PT-IP Assessment and Plan Start: 07/26/20 14:04 Freq: NEEDED Status: Active Protocol: Document 07/26/20 16:03 (Rec: 07/26/20 16:40 [id number]) PT Summary Assessment and Plan Potential Rehabilitation Potential Excellent Status of Condition at Evaluation Stable Summary Impairments Pain,ROM,Strength,Balance,Bed Mobility,Transfers,Gait, Activity Tolerance Assessment Summary Pt is a 69 yo female s/p POD0 L PEÑA with posterior approach d/t failed ORIF in June. Pt was able to mobilize independently with FWW for the past month even though 50%WB LLE. Pt is currently WBAT and she was able to transfer to BS and chair CGA with FWW but didnt get to amb d/t her low BP 80-90s/50s. Expect pt to recover well and able to dc home with assistance and outpatient PT. Goals Bed Mobility Goal Standby Assistance Transfer Goal Standby Assistance,Front Wheeled Walker Gait Goal Standby Assistance,Front Wheel Walker Gait Distance 100 Days to Meet Goals 2 Frequency of Treatment Frequency Of Treatment Twice a Day Treatment Plan Physical Therapy Treatment Plan Bed Mobility Training,Transfer Training,Gait Training, Therapeutic Exercise,Balance Retraining,Post Op Education, Discharge Planning,Hot or Cold Pack,Neuromuscular Re-ed Other Recommendations and Next Treatment review post op precautions Focus mobility as rudy with FWW Recommendations To Nursing Amount of Assist Needed 1 Person Assist Discharge Recommendations PT Discharge Recommendations Home with Assistance, Outpatient PT Transportation Needs at Discharge Private Vehicle
[2020-07-26] MEDS: SERTRALINE 50 MG TABLET PO (20:22)
[2020-07-26] MEDS: ASPIRIN EC 81 MG TABLET PO (20:22)
[2020-07-26] MEDS: DOCUSATE 100 MG CAPSULE PO (20:22)
--- NOTE | 2020-07-26 23:45 | PC.NURSE ---
[address] Stephens RE: hypotension. BP has been consistently in the 80s-90s/40-50s all day with one normal reading this evening. She (sometimes) gets dizziness upon standing, and heart rate has been in the 60s. Other pertinent information: 148cc serous drainage from wound vac post-op intake 4784cc, output 2280 today has LR infusing at 125mL/h She is not taking any narcotics and has no BP meds on file Per Dr. Stephens, no further orders because she is asymptomatic. Will continue to monitor.
[2020-07-27] VITALS (7 sets, daily range): BP systolic 89–134; BP diastolic 47–78; PULSE 64–92; RESP 16; TEMP 36.1–36.8; O2SAT 95–98
[2020-07-27] MEDS: IBUPROFEN 400 MG TABLET PO ×4 (00:23→12:48)
[2020-07-27] MEDS: CEFAZOLIN 2 GM/100 ML FROZ.PIGGY IV (00:23)
[2020-07-27] MEDS: hydrOXYzine pamoate 25 MG CAPSULE PO (00:56)
[2020-07-27] MEDS: LACTATED RINGERS 1,000 ML 125 ML IV (05:03)
[2020-07-27 06:27] LABS: Hematocrit 28.1 % (36-46); Hemoglobin 9.3 g/dL (12.0-16.0)
[2020-07-27] MEDS: SERTRALINE 50 MG TABLET PO (08:44)
[2020-07-27] MEDS: MULTIVITAMIN 1 TABLET 1 TAB PO (08:45)
[2020-07-27] MEDS: DOCUSATE 100 MG CAPSULE PO (08:45)
[2020-07-27] MEDS: ASPIRIN EC 81 MG TABLET PO (08:45)
[2020-07-27] MEDS: ACETAMINOPHEN 325 MG TABLET 650 MG PO (08:45)
--- NOTE | 2020-07-27 11:42 | PT.IPTN ---
Current Diagnoses Other intraoperative and postprocedural complications and disorders of the musculoskeletal system (07/26/20) Fracture of unspecified part of neck of left femur, subsequent encounter for closed fracture with routine healing (07/26/20) Surgery Performed Operation Date: 07/26/20 07:45 Actual Procedures p Total Hip Arthroplasty, external removal of internal fixation device from left proximal femur(Left) - Sagrario Howard MD Physical Therapy Treatment Note M2 PT-IP Current Condition Start: 07/26/20 14:04 Freq: NEEDED Status: Active Protocol: Document 07/26/20 16:03 (Rec: 07/26/20 16:40 HH [id number]) Physical Therapy Current Condition Current Condition Evaluation Date 07/26/20 Treatment Diagnosis L PEÑA (post approach), difficulty in walking Onset Date 07/26/20 Precautions Posterior Hip Precautions No Hip Flexion > 90 degrees,No Hip Internal Rotation,No Hip Adduction Weight Bearing Status Weight Bearing Status Weight Bear as Tolerated M3 PT-IP Subjective Start: 07/26/20 14:04 Freq: NEEDED Status: Active Protocol: Document 07/27/20 10:11 STEFAN (Rec: 07/27/20 11:42 LJ [id number]) Subjective Physical Therapy Visit Type Type Treatment Note Visit Start Time 10:11 Visit Stop Time 10:37 Total Visit Minutes 26 Notes Pt seated in chair Number of APPRAISER IRRIGATION TAX Visits 1 Physical Therapy Visit Comments Patient Comments Willing to work with PT Patient Goals to return home once she is medically stable. Therapy Pain Assessment Pain Present Pain Present Denied Pain M4 PT-IP Mobility and Gait Start: 07/26/20 14:04 Freq: NEEDED Status: Active Protocol: Document 07/27/20 10:11 STEFAN (Rec: 07/27/20 11:42 LJ [id number]) PT-Transfer Assessment Sit to and From Stand Sit to and from Stand Contact Guard Assistance,1 Person Assistance,Use of Upper Extremities Equipment Transfer Assistive Device Gait Belt,Front Wheeled Walker Orthotic/Prosthetic Devices or Brace: No Transfers Transfer Destination Chair Transfer Technique Stand Step Pivot Transfer Ability Level of Assist Contact Guard Assistance,1 Person Assistance,Use of Upper Extremities Comments Mobility Comments Pt was sitting in chair upon arrival. BP 105/53 seated. Pt stood pushing off chair with staggard stance CGA. BP in standing 92/57. Pt ambulated out in hallway ~400' w/o LOB or complaint of pain. improving gait mechanics with swing through gait and less antalgia. Pt ambulated around the [place] [id number] and returned to room. Sat in chair and requested a BP reading which measured 96/54. Pt left in room with all needs within reach. Gait Assessment Gait Gait Assistance Required: Standby Assistance Distance (Feet) 400 Able to Maintain Weight Bearing Status Yes During Gait Assistive Devices Assistive Device Gait Belt,Front Wheeled Walker Orthotic/Prosthetic Devices or Brace: No Gait Deviations General Gait Pattern Antalgic,Decreased Stride Length,Decreased Feet Clearance,Step-to Gait Factors Limiting Gait Function Factors Limiting Gait Function Decreased Activity Tolerance, Decreased Strength,Limited Range of Motion,Poor Balance Comments Gait Comments see mobility comments. M5 PT-IP Objective Assessments Start: 07/26/20 14:04 Freq: NEEDED Status: Active Protocol: Document 07/26/20 16:03 (Rec: 07/26/20 16:40 [id number]) Orientation Orientation/Cognition Level of Alertness Alert Orientation Name,Age,Birthday,Month,Date, Year,Day of Week,Place, Situation Language Function Ability No Deficits Noted Safety Awareness Understands Safety Issues Memory Description No Deficits Noted Gross Range of Motion Lower Extremity ROM Assessment Within Functional Limits Strength Lower Extremity Strength Assessment Left Impaired Hip 4-/5 Knee 4-/5 Coordination Assessment Gross Coordination Gross Coordination WNL Sensation Assessment Sensation Gross Sensation WNL Muscle Tone Muscle Tone WNL Yes M6 PT-IP Treatment Start: 07/26/20 14:04 Freq: NEEDED Status: Active Protocol: Document 07/27/20 10:11 STEFAN (Rec: 07/27/20 11:42 STEFAN [id number]) Physical Therapy Treatment Exercises Exercises Ankle Pumps,Gluteal Sets,Quad Sets,Heel Slides,Straight Leg Raises Education Education Provided Safety M7 PT-IP Assessment and Plan Start: 07/26/20 14:04 Freq: NEEDED Status: Active Protocol: Document 07/27/20 10:11 STEFAN (Rec: 07/27/20 11:42 STEFAN [id number]) PT Summary Assessment and Plan Potential Rehabilitation Potential Excellent Status of Condition at Evaluation Stable Summary Impairments ROM,Strength,Balance,Gait, Activity Tolerance Assessment Summary Pt's BP remained stable throughout treatment session. Understands precautions and claims to have very little pain. She has met goals and is safe to DC home with assist. Goals Bed Mobility Goal Standby Assistance Transfer Goal Standby Assistance,Front Wheeled Walker Gait Goal Standby Assistance,Front Wheel Walker Gait Distance 100 Days to Meet Goals 2 Frequency of Treatment Frequency Of Treatment Twice a Day Treatment Plan Physical Therapy Treatment Plan Bed Mobility Training,Transfer Training,Gait Training, Therapeutic Exercise,Balance Retraining,Post Op Education, Discharge Planning,Hot or Cold Pack,Neuromuscular Re-ed Other Recommendations and Next Treatment review post op precautions Focus mobility as rudy with FWW Recommendations To Nursing Amount of Assist Needed Standby Assistance Discharge Recommendations PT Discharge Recommendations Home with Assistance, Outpatient PT Transportation Needs at Discharge Private Vehicle
--- NOTE | 2020-07-27 12:08 | PC.NURSE ---
Pt hemovac and IV removed. Spouse to potato picker Pt at 1300. Went over d/c instructions with Pt-discussed d/c meds, time of last dose, reviewed stroke education, s/s of infection, showering, no driving while on narcotics, drink plenty of fluids to prevent constipation or dehydration, and follow up appointment. Pt denies further questions and will be given her 1300 Ibuprofen prior to discharge home.
--- NOTE | 2020-07-27 14:50 | CM.IDA ---
Addendum entered by LILIA Yusuf 07/27/20 14:53: Asked patient about [facility] referral made last visit, patient stated she heard from them over a week after her hospital stay and told them she didn't need HH any longer, went to outpatient appt and will do outpatient again this time. Original Note: Initial DCP Assessment Note Pt is a 69 yo female, resident of [place], now POD#1 from left hip surgery w/ Dr Howard PCP: [facility]ene Payer: [facility] Reviewed chart, pt discussed in multidisciplinary rounds this morning. Therapy has cleared pt for return home w/family to assist and pt has planned for home, DC order from Ortho has already been initiated this morning. Met w/patient and spouse Richard, patient familiar to this COAL WHEELER from prior visit in June. Patient states no needs from this COAL WHEELER, appreciative for the visit. No needs expected from DC planning team although will remain available in case this changes today. LILIA Yusuf
== END 2020-07-27 13:18 | disposition home or self-care (01) ==
LOC: OR 06:11 → AC 06:12
PROVIDERS: PCP Family Medicine; Referring Provider Orthopaedic Surgery Foot and Ankle Surgery; Visit Provider Orthopaedic Surgery
PROC: 0SRB0JZ Replacement of Left Hip Joint with Synthetic Substitute, Open Approach (ICD-10-PCS; CPT 27130; principal; 2020-07-26 07:45)
DX: S72.002K Fracture of unspecified part of neck of left femur, subsequent encounter for closed fracture with nonunion (principal); M85.852 Other specified disorders of bone density and structure, left thigh; F41.9 Anxiety disorder, unspecified; G25.81 Restless legs syndrome
CPT/HCPCS: 27130; 36415; 72170; 73502; 85014; 85018; 94760; 97116; 97161; C1776; C9290; J0171; J0690; J1100; J2274; J2405; J2704

== ENCOUNTER → 2020-09-20 12:19 | Outpatient (CLI) | payer MEDICARE, OTHER, SELFPAY ==
[2020-07-26 12:17] VITALS: BMI 27.3
[2020-09-20] MEDS: COVID-19 VACC, Ad26(JANSSEN)/PF 0.5 ML IM (12:32)
== END ==
PROVIDERS: PCP Family Medicine; Visit Provider Internal Medicine
DX: Z23 Encounter for immunization (principal)
CPT/HCPCS: 0031A; 91303

== ENCOUNTER → 2021-01-08 15:12 | Outpatient (CLI) | payer MEDICARE, OTHER, SELFPAY ==
[2020-07-26 12:17] VITALS: BMI 27.3
--- NOTE | 2021-01-08 15:14 | DI.RAD.S_ITS ---
PROCEDURE: XR HIP W PEL IF DONE LT 2V INDICATIONS: pain TECHNIQUE: AP pelvis and lateral view of the left hip acquired. COMPARISON: [facility], CR, XR HIP W PEL IF DONE LT 2V, 06/28/2020, 14:12. [facility], CR, XR HIP W PEL IF DONE LT 2V, 07/26/2020, 10:47. FINDINGS: Bones: Patient is status post left hip arthroplasty, with hardware components in expected positions. The hip joint appears congruent. The visualized bony structures appear intact. Mild joint narrowing with periarticular osteophyte formation of the right hip joint. Degenerative disc and facet disease involves the inferior lumbar spine. Soft tissues: Overlying postoperative changes are noted. No suspicious soft tissue densities. IMPRESSION: Stable appearance of left hip arthroplasty. Dictated by: Sanket MCDANIELS Interpreted: Roldan Amaro MD on 01/08/2021 at 15:29 Transcribed by: NORA on 01/08/2021 at 15:30 Approved by: Roldan Amaro M.D. on 01/08/2021 at 18:07
== END ==
PROVIDERS: PCP Family Medicine; Referring Provider Family Medicine; Visit Provider Family Medicine
DX: M25.552 Pain in left hip (principal); G89.29 Other chronic pain; Z96.642 Presence of left artificial hip joint
CPT/HCPCS: 73502

== ENCOUNTER → 2021-01-24 07:59 | Outpatient (CLI) | payer MEDICARE, OTHER, SELFPAY ==
[2020-07-26 12:17] VITALS: BMI 27.3
[2021-01-24 08:32] LABS: COVID19 -Nasal RAPID Negative (Negative)
== END ==
PROVIDERS: PCP Family Medicine; Visit Provider Physician Assistant
DX: J02.9 Acute pharyngitis, unspecified (principal); Z20.822 Contact with and (suspected) exposure to COVID-19
CPT/HCPCS: 87070; 87147; 87635

== ENCOUNTER → 2021-08-08 11:03 | Outpatient (CLI) | payer MEDICARE, SELFPAY ==
[2020-07-26 12:17] VITALS: BMI 27.3
--- NOTE | 2021-08-08 | DI.MG.S_ITS ---
BILATERAL DIGITAL SCREENING MAMMOGRAM 3D/2D WITH CAD: 08/08/2021 CLINICAL: Routine screening. Comparison is made to exams dated: 05/27/2020 mammogram and 04/27/2019 mammogram - outside location. The tissue of both breasts is predominantly fatty. Current study was also evaluated with a Computer Aided Detection (CAD) system. No significant masses, calcifications, or other findings are seen in either breast. There has been no significant interval change. IMPRESSION: NEGATIVE There is no mammographic evidence of malignancy. A 1 year screening mammogram is recommended. This exam was interpreted at Station ID: [id number]. NOTE: For mammograms, a report in lay terms will be sent to the patient. Approximately 15% of breast malignancies will not be visualized mammographically. In the management of a palpable breast mass, a negative mammogram must not discourage biopsy of a clinically suspicious lesion. Electronically Signed By: Vicente Ovalle acr/penrad:08/08/2021 11:36:48 letter sent: Normal Exam ACR BI-RADS Category 1: Negative 3341F
== END ==
PROVIDERS: PCP Family Medicine; Referring Provider Family Medicine; Visit Provider Family Medicine
DX: Z12.31 Encounter for screening mammogram for malignant neoplasm of breast (principal)
CPT/HCPCS: 77063; 77067

== ENCOUNTER → 2021-08-23 08:12 | Outpatient (CLI) | payer MEDICARE, SELFPAY ==
[2020-07-26 12:17] VITALS: BMI 27.3
[2021-08-23 09:59] LABS: Add Manual Diff / Slide Review NO; Basophils Absolute Auto 100 /uL (0-100); Basophils Percent Auto 1.1 % (0-2); Eosinophils Absolute Auto 0 /uL (0-450); Eosinophils Percent Auto 0.4 % (2-4); Hematocrit 39.8 % (36-46); Hemoglobin 13.3 g/dL (12.0-16.0); Lymphocytes Absolute Auto 800 /uL (1100-4500); Lymphocytes Percent Auto 18.4 % (25-40); Mean Corpuscular HGB Conc 33.5 % (30-36); Mean Corpuscular Hemoglobin 30.8 PG (26-34); Monocytes Absolute Auto 400 /uL (0-900); Monocytes Percent Auto 8.8 % (3-14); Neutrophils Absolute Auto 3200 /uL (1500-7000); Neutrophils Percent Auto 71.3 % (50-75); Platelet Count 228 X10^3/uL (150-400); Red Blood Cell Count 4.32 X10^6/uL (4.0-5.2); Red Cell Distribution Width 15.2 % (11.6-14.8); White Blood Cell Count 4.6 X10^3/uL (4.5-11.0)
[2021-08-23 10:34] LABS: Alanine Aminotransferase 14 IU/L (<35); Albumin 4.4 g/dL (3.5-5.0); Albumin Globulin Ratio 1.4 (1.0-2.8); Alkaline Phosphatase 64 U/L (38-126); Aspartate Aminotransferase 27 IU/L (14-36); BUN Creatinine Ratio 13.9 (6-22); Bilirubin Total 0.7 mg/dL (0.2-1.3); Blood Urea Nitrogen 11 mg/dL (7-17); Carbon Dioxide 33 mmol/L (22-32); Chloride 101 mmol/L (98-107); Cholesterol 211 mg/dL (140-199); Estimated Glomerular Filt Rate > 60.0 mL/min (>60); Globulin 3.2 g/dL (1.7-4.1); Glucose 84 mg/dL (80-110); HEMOLYSIS < 15 (0-50); Potassium 4.6 mmol/L (3.4-5.1); Sodium 139 mmol/L (137-145); Total Protein 7.6 g/dL (6.3-8.2); Triglycerides 42 mg/dL (35-150)
[2021-08-23 10:48] LABS: HDL Cholesterol 117 mg/dL (40-60); LDL Cholesterol Calculated 86 mg/dL (<100)
== END ==
PROVIDERS: PCP Family Medicine; Referring Provider Family Medicine; Visit Provider Family Medicine
DX: E55.9 Vitamin D deficiency, unspecified (principal); E87.1 Hypo-osmolality and hyponatremia; Z13.1 Encounter for screening for diabetes mellitus; E78.00 Pure hypercholesterolemia, unspecified
CPT/HCPCS: 36415; 80053; 80061; 82306; 83036; 85025

== ENCOUNTER → 2022-02-03 09:45 | Outpatient (CLI) | payer MEDICARE, SELFPAY ==
[2020-07-26 12:17] VITALS: BMI 27.3
--- NOTE | 2022-02-03 | DI.MRI.S_ITS ---
PROCEDURE: MR LUMBAR SPINE WO CON INDICATIONS: Low back pain, unspecified TECHNIQUE: Noncontrast sagittal T1 spin echo and T2 fast echo, sagittal STIR, and T2 fast spin echo through the lumbar spine. In cases with scoliosis, additional coronal T2 fast spin echo may be performed. COMPARISON: None. FINDINGS: Image quality: Excellent. Alignment and Curvature: Mild grade 1 anterior spondylolisthesis present at L4-5 Bone Marrow: Chronic degenerative endplate changes noted. Spinal Cord: Conus medullaris terminates at the L1 level. Visualized cord demonstrates normal signal and size. Paraspinous Soft Tissues: No paravertebral masses. T12-L1: Normal appearance. L1-L2: Normal appearance. L2-L3: Mild disc space narrowing and disc bulge present with hypertrophic facet joints. No central stenosis. Moderate bilateral foraminal stenosis. L3-L4: Disc space narrowing with circumferential disc bulge, hypertrophic facet joints and ligamentum flavum laxity all combined result in severe central stenosis. Moderate bilateral foraminal stenosis present. L4-L5: Disc space narrowing with circumferential disc bulge and hypertrophic facet joints combined with ligamentum flavum laxity to result in severe central stenosis. Severe right and moderate left foraminal stenosis. L5-S1: Disc height is preserved. Mild central stenosis and severe left and moderate right foraminal stenosis IMPRESSION: Multilevel degenerative disc disease and arthropathy results in varying degrees of central and foraminal stenosis including severe central stenosis at L3-4 and L4-5 Approved by: Onel Vences M.D. on 02/03/2022 at 12:48
== END ==
PROVIDERS: PCP Family Medicine; Referring Provider Physical Medicine & Rehabilitation Pain Medicine; Visit Provider Physical Medicine & Rehabilitation Pain Medicine
DX: M51.36 Other intervertebral disc degeneration, lumbar region (principal); M47.816 Spondylosis without myelopathy or radiculopathy, lumbar region; M48.061 Spinal stenosis, lumbar region without neurogenic claudication; M54.50 Low back pain, unspecified
CPT/HCPCS: 72148

== ENCOUNTER → 2022-08-18 07:41 | Outpatient (CLI) | payer MEDICARE, SELFPAY ==
[2020-07-26 12:17] VITALS: BMI 27.3
--- NOTE | 2022-08-18 07:43 | DI.MG.S_ITS ---
BILATERAL DIGITAL SCREENING MAMMOGRAM 3D/2D WITH CAD: 08/18/2022 CLINICAL: Routine screening. Comparison is made to exams dated: 08/08/2021 mammogram - [facility], 05/27/2020 mammogram, and 04/27/2019 mammogram - outside location. Both breasts are heterogeneously dense, which may obscure small masses (category c / 51-75% glandular tissue). Current study was also evaluated with a Computer Aided Detection (CAD) system. No significant masses, calcifications, or other findings are seen in either breast. There has been no significant interval change. IMPRESSION: NEGATIVE There is no mammographic evidence of malignancy. A 1 year screening mammogram is recommended. Based on the Tyrer Cuzick model (a risk assessment model) the patient's lifetime risk is 6.1% and her 10 year risk is 5.5%. According to the ACR, ACS, and NCCN guidelines, an annual breast MRI exam along with mammogram is recommended if the patient's lifetime risk is 20% or greater. This exam was interpreted at Station ID: [id number]. NOTE: For mammograms, a report in lay terms will be sent to the patient. Approximately 15% of breast malignancies will not be visualized mammographically. In the management of a palpable breast mass, a negative mammogram must not discourage biopsy of a clinically suspicious lesion. Electronically Signed By: Roldan quinonez/jeremy:08/18/2022 13:17:52 letter sent: Normal Exam ACR BI-RADS Category 1: Negative 3341F
[2022-08-18 08:24] LABS: Add Manual Diff / Slide Review NO; Basophils Absolute Auto 0 /uL (0-100); Basophils Percent Auto 0.5 % (0-2); Eosinophils Absolute Auto 0 /uL (0-450); Eosinophils Percent Auto 0.9 % (2-4); Hematocrit 40.3 % (36-46); Hemoglobin 13.1 g/dL (12.0-16.0); Lymphocytes Absolute Auto 1000 /uL (1100-4500); Lymphocytes Percent Auto 18.6 % (25-40); Mean Corpuscular HGB Conc 32.5 % (30-36); Mean Corpuscular Hemoglobin 29.8 PG (26-34); Mean Corpuscular Volume 91.6 fL (80-100); Monocytes Absolute Auto 600 /uL (0-900); Monocytes Percent Auto 10.7 % (3-14); Neutrophils Absolute Auto 3600 /uL (1500-7000); Neutrophils Percent Auto 69.3 % (50-75); Platelet Count 210 X10^3/uL (150-400); Red Cell Distribution Width 14.8 % (11.6-14.8); White Blood Cell Count 5.2 X10^3/uL (4.5-11.0)
[2022-08-18 08:44] LABS: Alanine Aminotransferase 18 IU/L (<35); Albumin 4.1 g/dL (3.5-5.0); Albumin Globulin Ratio 1.2 (1.0-2.8); Alkaline Phosphatase 85 U/L (38-126); Aspartate Aminotransferase 29 IU/L (14-36); BUN Creatinine Ratio 24.6 (6-22); Bilirubin Total 0.3 mg/dL (0.2-1.3); Blood Urea Nitrogen 17 mg/dL (7-17); Calcium 9.5 mg/dL (8.4-10.2); Carbon Dioxide 29 mmol/L (22-32); Chloride 101 mmol/L (98-107); Estimated Glomerular Filt Rate > 60 mL/min (>60); Globulin 3.4 g/dL (1.7-4.1); Glucose 84 mg/dL (80-110); HEMOLYSIS < 15 (0-50); Potassium 4.6 mmol/L (3.4-5.1); Sodium 139 mmol/L (137-145); Total Protein 7.5 g/dL (6.3-8.2)
[2022-08-18 09:03] LABS: Vitamin D 25 Hydroxy (D3) 45.1 ng/mL (30.0-100.0)
[2022-08-18 09:39] LABS: Vitamin B12 > 1000 pg/mL (239-931)
== END ==
PROVIDERS: PCP Family Medicine; Referring Provider Family Medicine; Visit Provider Family Medicine
DX: Z12.31 Encounter for screening mammogram for malignant neoplasm of breast (principal); Z00.00 Encounter for general adult medical examination without abnormal findings; M80.00XD Age-related osteoporosis with current pathological fracture, unspecified site, subsequent encounter for fracture with routine healing
CPT/HCPCS: 36415; 77063; 77067; 80053; 82306; 82607; 85025

== ENCOUNTER → 2022-09-10 10:11 | Outpatient (CLI) | payer MEDICARE, SELFPAY ==
[2020-07-26 12:17] VITALS: BMI 27.3
[2022-09-10 13:36] LABS: Clostridium Difficile Tox PCR Negative for C. diff (Negative)
== END ==
PROVIDERS: PCP Family Medicine; Referring Provider Internal Medicine Gastroenterology; Visit Provider Internal Medicine Gastroenterology
DX: R13.10 Dysphagia, unspecified (principal); K62.5 Hemorrhage of anus and rectum; R10.9 Unspecified abdominal pain; R19.7 Diarrhea, unspecified; R19.4 Change in bowel habit
CPT/HCPCS: 87045; 87493; 87899

== ENCOUNTER 2022-11-09 07:34 | Day surgery (SDC) | payer MEDICARE, SELFPAY ==
[2020-07-26 12:17] VITALS: BMI 27.3
--- NOTE | 2022-11-09 | PATH_ITS ---
[facility] Accession Number: [id number] No. of containers..04 Tissue . 01 Material submitted: . PART A: duodenum - DUODENUM PART B: stomach - ANTRUM PART C: esophagus - MID ESOPHAGUS PART D: colon - RANDOM COLON BIOPSY . 01 Diagnosis: A. Duodenum, Biopsy: Duodenal mucosa with no diagnostic abnormality. Negative for active inflammation, features of sprue, dysplasia, or malignancy. . B. Antrum, Biopsy: Reactive gastropathy alterations and mild chronic gastritis. No Helicobacter pylori organisms identified on immunohistochemical evaluation. No intestinal metaplasia, dysplasia, or malignancy identified. . C. Mid Esophagus, Biopsy: Squamous epithelium with no diagnostic abnormality. Intraepithelial eosinophils are not increased. Negative for dysplasia and malignancy. . D. Random Colon, Biopsy: Colonic mucosa with benign lymphoid aggregate and melanosis coli. No colitis, dysplasia or malignancy identified. [facility] 11/12/2022 1526 Local . 01 Electronically signed: . Osiris Newton MD, Pathologist NPI- [id number] . 01 Gross description: . The specimen is received in four parts, all labeled with the patient's name and . . A. Designated duodenum consists of two kahn soft tissue fragments ranging from 0.1 to 0.3 cm in greatest dimension. Submitted entirely in cassette A1. B. Designated antrum consists of two kahn soft tissue fragments ranging from 0.1 to 0.3 cm in greatest dimension. Submitted entirely in cassette B1. C. Designated mid esophagus consists of two kahn soft tissue fragments ranging from 0.2 to 0.3 cm in greatest dimension. Submitted entirely in cassette c1. D. Designated random colon biopsy consists of two kahn-brown soft tissue fragments ranging from 0.2 to 0.3 cm in greatest dimension. Submitted entirely in cassette D1. ([id number]) . /MRV 11/11/2022 1600 Local . 01 Microscopic: . B. An immunohistochemical stain was performed to evaluate for Helicobacter organisms and is negative. The control stain showed appropriate reactivity. . * This test was developed and its performance characteristics determined by [employer]. It has not been cleared or approved by the U.S. Food and Drug Administration. The FDA has determined that such clearance or approval is not necessary. This test is used for clinical purposes. It should not be regarded as investigational or for research. . 01 Pathologist provided ICD-10: K29.70, K29.60, K52.89, K63.89 . 01 CPT . 136448, 675317, 977450, 252306, I76384 Specimen Comment: A courtesy copy of this report has been sent to [phone] Performed at: 01 [facility] [address] [place] [address], [place], [place] [id number] MD Apollo Plummer MD Phone: [phone]
[2022-11-09 07:53] VITALS: BP 106/70; PULSE 82; RESP 16; TEMP 36.4; O2SAT 97; BMI 28.3
[2022-11-09] MEDS: LACTATED RINGERS 1,000 ML 100 ML IV (08:17)
--- NOTE | 2022-11-09 08:41 | PM.HP.1 ---
History of Present Illness History of Present Illness Date Patient Seen: 11/09/22 Time Patient Seen: 08:41 Chief complaint: Colonoscopy & EGD w/poss bx's Narrative: I reviewed my office note. No significant changes with the exception that she is improved from a swallowing and pyrosis standpoint since going on famotidine. EGD and colonoscopy are planned for today. [facility] Medical History Anxiety and depression Chronic hip pain after total replacement of left hip joint Chronic pain of left knee Chronic pain of right knee Dupuytren's contracture of hand Hyponatremia Pelvic somatic dysfunction Pharyngitis Pure hypercholesterolemia Right ear pain Sacral region somatic dysfunction Somatic dysfunction of lower extremity Trigger finger, left ring finger Surgical History H/O ovarian cystectomy H/O unilateral salpingectomy History of appendectomy History of cholecystectomy Status post total hip replacement, left Family History Father No problems noted. Other Cancer Social History household members: spouse Smoking Status: Former smoker alcohol intake: never Meds Home Medications and Allergies Home Medications Medication Instructions Recorded Confirmed Type multivitamin 1 tab PO DAILY 06/27/20 11/09/22 History sertraline 50 mg tablet 50 mg PO BID #180 tabs 05/29/22 11/09/22 Rx famotidine 10 mg tablet 10 mg PO DAILY 09/11/22 11/09/22 History Allergies Allergy/AdvReac Type Severity Reaction Status Date / Time meperidine [From Demerol] AdvReac Intermediate Hallucinati Verified 10/07/21 11:13 ng neoprine AdvReac Intermediate Rash Uncoded 10/07/21 11:13 Review of Systems Review of Systems ROS: Yes All systems reviewed with the patient and are negative except as otherwise documented Exam Vital Signs (past 8 hours): - 11/09/22 07:53 Temperature 97.5 F L Pulse Rate 82 Respiratory Rate 16 Blood Pressure 106/70 Pulse Oximetry 97 Oxygen Delivery Method Room Air Oxygen Delivery Method Room Air Const General: cooperative HENMT Head: normal to inspection Eyes General: appearance normal, both eyes and all related structures Neck Neck: normal visual inspection Chest Chest: normal inspection of the chest Resp Effort & Inspection: normal respiratory effort Cardio Rate: regular rate GI Inspection: normal to inspection Skin General: no rashes or lesions noted Neuro General: patient alert and patient awake Extrem General: normal to inspection and no pedal edema Psych Appearance: grossly normal Assessment & Plan Assessment & Plan narrative: 72-year-old female with a history of dysphagia and diarrhea. She is also had some rectal bleeding that she believes is hemorrhoidal. EGD and colonoscopy are pursued today.
--- NOTE | 2022-11-09 08:43 | PM.PREOP ---
Pre-operative Note Interval Note History & Physical reviewed/Exam performed by Physician: Yes Changes to H&P: Yes ASA Class (for procedural sedation): II
--- NOTE | 2022-11-09 08:44 | PM.PREOP ---
Pre-operative Note Interval Note History & Physical reviewed/Exam performed by Physician: Yes Changes to H&P: No ASA Class (for procedural sedation): II
--- NOTE | 2022-11-09 09:33 | P.OP.EGD&C_ITS ---
Operative Date/Time/Diagnoses Date of procedure: 11/09/22 Time of procedure: 09:33 Pre-op diagnosis: Dysphagia dyspepsia diarrhea rectal bleeding Post-op diagnosis: same Procedure & Clinicians Study performed: EGD with biopsies and colonoscopy with biopsies Same procedure as scheduled: Yes Indications: Dysphagia dyspepsia diarrhea rectal bleeding Surgeon: Gabe Kinsey Procedure Notes SCOAP/Timeout: Done Procedure in detail: After the risks and benefits were explained, written and verbal informed consent was obtained. The patient was brought into the procedure room and placed into the left lateral decubitus position. Please see anesthesia notes for sedation details. The scope was introduced into the mouth through the bite block and advanced under direct visualization to the 2nd portion of the duodenum. The scope was slowly withdrawn carefully examining the mucosa for any defects or lesions. Retroflexed views were accomplished in the stomach. The stomach was decompressed, the scope was then removed from the patient who tolerated the procedure well. The patient was then turned around. A digital rectal examination was accomplished. The scope was introduced into the rectum advanced to the cecum as identified by the appendiceal orifice and ileocecal valve. The terminal ileum was interrogated. The scope was then slowly withdrawn to carefully examine the mucosa for any defects or lesions. Multiple direct views were made through the dentate line for exclusion of pathology. The colon was decompressed scope removed from the patient who tolerated the procedure well. Pediatric colonoscope Bowel prep adequate Scope withdrawal time: 9 minutes Sedation minutes: 41 Complications: none Impression: 1. Duodenum: This was visually normal from the bulb through to the 2nd portion. Random D2 biopsies were acquired for exclusion of sprue. 2. Stomach: The patient had a moderate gastropathy throughout. No ulcers no mass lesions. Retroflexed views were unremarkable. Random antral biopsies were taken for exclusion of H pylori or other pathology. 3. Esophagus: The squamocolumnar junction correlated with the top of the gastric folds. The Z-line was variable but did not suggest Barretts. There was evidence of old healed esophagitis. Nothing acute. No mass lesions. There was a subtle sliding hiatal hernia. Throughout the mid esophagus there were circumferential tightly grouped folds that appeared periodically. Additionally there were some linear grooves. The combination of these features suggested the possibility of eosinophilic infiltration and therefore mid esophageal biopsies were acquired for exclusion of this entity. 4. Colon: Patient had grade 2 nonbleeding nonthrombosed hemorrhoids. Patient had moderate to severe melanosis coli from rectum all the way to cecum. Random colon biopsies were acquired for exclusion of microscopic colitis. The terminal ileum was interrogated and appeared visually normal. Endoscopic diagnosis 1. Very subtle sliding hiatal hernia 2. Esophagitis 3. Circumferential esophageal folds concerning for eosinophilic esophagitis- biopsied 4. Gastropathy 5. Melanosis coli 6. Grade 2 hemorrhoids Post-procedure Plan for aftercare: 1. Await histopathology. 2. Continue famotidine. 3. Follow up GI clinic in 6-8 weeks. Disposition: PACU
[2022-11-09 09:43] VITALS: BP 110/66; PULSE 75; RESP 14; TEMP 36.3; O2SAT 98
[2022-11-09 09:44] VITALS: BP 94/73; PULSE 70; RESP 18; O2SAT 98
[2022-11-09 09:47] VITALS: BP 109/61; PULSE 64; RESP 17; TEMP 36.4; O2SAT 99
[2022-11-09 09:55] VITALS: BP 111/66; PULSE 63; RESP 18; TEMP 36.6; O2SAT 98
== END 2022-11-09 10:08 | disposition home or self-care (01) ==
PROVIDERS: PCP Family Medicine; Referring Provider Internal Medicine Gastroenterology; Visit Provider Internal Medicine Gastroenterology
PROC: 0DJ08ZZ Inspection of Upper Intestinal Tract, Via Natural or Artificial Opening Endoscopic (ICD-10-PCS; CPT 43235; principal; 2022-11-09 09:00)
PROC: 0DJD8ZZ Inspection of Lower Intestinal Tract, Via Natural or Artificial Opening Endoscopic (ICD-10-PCS; CPT 45378; 2022-11-09 09:00)
DX: K62.5 Hemorrhage of anus and rectum (principal); R19.7 Diarrhea, unspecified; R13.10 Dysphagia, unspecified; R10.13 Epigastric pain; K44.9 Diaphragmatic hernia without obstruction or gangrene; K20.90 Esophagitis, unspecified without bleeding; K31.9 Disease of stomach and duodenum, unspecified; K63.89 Other specified diseases of intestine; K64.1 Second degree hemorrhoids; K29.50 Unspecified chronic gastritis without bleeding; K31.89 Other diseases of stomach and duodenum
CPT/HCPCS: 45380; 43239; J2704

== ENCOUNTER → 2023-05-12 12:32 | Outpatient (CLI) | payer MEDICARE, SELFPAY ==
[2020-07-26 12:17] VITALS: BMI 27.3
--- NOTE | 2023-05-12 12:35 | DI.RAD.S_ITS ---
PROCEDURE: XR CHEST 2V INDICATIONS: clavicle nodule on left TECHNIQUE: 2 views of the chest were acquired. COMPARISON: [facility], CR, XR CHEST 1V, 06/27/2020, 15:26. FINDINGS: Surgical changes and devices: None. Lungs and pleura: Lungs are clear. No pleural effusions or pneumothorax. Mediastinum: Mediastinal contours are normal. Heart size is normal. Bones and chest wall: No suspicious bony abnormalities. Soft tissues appear unremarkable. IMPRESSION: No acute cardiopulmonary abnormality is seen. No osseous abnormality. If concern persists, CT is recommended. Dictated by: Brenda Joiner M.D. on 05/12/2023 at 17:52 Approved by: Brenda Joinre M.D. on 05/12/2023 at 17:53
[2023-05-12 14:33] LABS: Rheumatoid Factor < 8.6 IU/mL (<12.0)
[2023-05-13 23:49] LABS: CCP Antibodies IgG/IgA 1 units (0-19)
== END ==
PROVIDERS: PCP Family Medicine; Referring Provider Family Medicine; Visit Provider Family Medicine
DX: M85.612 Other cyst of bone, left shoulder (principal); M79.641 Pain in right hand; M79.642 Pain in left hand
CPT/HCPCS: 36415; 71046; 86200; 86430

== ENCOUNTER → 2023-05-14 11:16 | Outpatient (CLI) | payer MEDICARE, SELFPAY ==
[2020-07-26 12:17] VITALS: BMI 27.3
--- NOTE | 2023-05-14 11:18 | DI.US.S_ITS ---
PROCEDURE: US ABDOMEN LIMITED INDICATIONS: CLAVICLE NODULE TECHNIQUE: Soft tissue ultrasound was obtained COMPARISON: None. FINDINGS: At the area of concern associated with the left clavicle, normal soft tissues are observed. Normal vascularity. Symmetric tissue noted on the right at a similar level IMPRESSION: Unremarkable soft tissue ultrasound at the area of concern associated with the left clavicle Approved by: Onel Vences M.D. on 05/14/2023 at 15:25
== END ==
PROVIDERS: PCP Family Medicine; Referring Provider Family Medicine; Visit Provider Family Medicine
DX: M85.612 Other cyst of bone, left shoulder (principal)
CPT/HCPCS: 76705

== ENCOUNTER → 2023-06-23 10:47 | Outpatient (CLI) | payer MEDICARE, SELFPAY ==
[2020-07-26 12:17] VITALS: BMI 27.3
--- NOTE | 2023-06-23 10:50 | DI.CT.S_ITS ---
PROCEDURE: CT CHEST W CON INDICATIONS: bump on clavicle TECHNIQUE: After the administration of intravenous contrast, 5 mm thick sections acquired from the pulmonary apices to the posterior costophrenic angles. 1 mm axial lung, 5 mm thick coronal and sagittal reformats and 7 mm axial MIP were acquired. For radiation dose reduction, the following was used: automated exposure control, adjustment of mA and/or kV according to patient size. COMPARISON: None. FINDINGS: Image quality: Diagnostic. Lungs and pleura: No acute air space opacities. No pleural effusions or pneumothorax. Central and peripheral airways are patent and normal in caliber. Mediastinum: Heart size is normal. No pericardial effusion. No mediastinal or hilar adenopathy by size criteria. Thoracic aorta and central pulmonary arteries are normal in size. Esophagus is normal in caliber. No hiatal hernia. Bones and chest wall: No suspicious bony lesions. A BB has been placed at the location of the left clavicular head. There is prominence of the sternoclavicular joint suggesting sternoclavicular joint degenerative change. No vertebral body compression fractures. No axillary or supraclavicular adenopathy by size criteria. No thyroid nodules which require sonographic follow up, per consensus guidelines. Upper Abdomen: Visualized upper abdominal solid organs appear normal. Upper abdominal bowel loops are normal in caliber. IMPRESSION: 1. 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 2. Otherwise unremarkable CT chest with contrast. No acute pulmonary process. No findings suspicious for malignancy. Dictated by: Ray Myles M.D. on 06/23/2023 at 16:08 Approved by: Ray Myles M.D. on 06/23/2023 at 16:12
[2023-06-23 11:17] LABS: Estimated Glomerular Filt Rate > 60 mL/min (>60)
== END ==
PROVIDERS: Radiology Diagnostic Radiology; PCP Family Medicine; Referring Provider Family Medicine; Visit Provider Family Medicine
DX: M85.612 Other cyst of bone, left shoulder (principal)
CPT/HCPCS: 36415; 71260; 82565; Q9967

== ENCOUNTER → 2023-07-27 09:43 | Outpatient (CLI) | payer MEDICARE, SELFPAY ==
[2020-07-26 12:17] VITALS: BMI 27.3
--- NOTE | 2023-07-27 09:45 | DI.RAD.S_ITS ---
PROCEDURE: XR TIBIA FIBULA LT 2V INDICATIONS: fall yesterday to chins, pain more @ lateral midshaft fibula TECHNIQUE: 2 views of the tibia and fibula were acquired. COMPARISON: None. FINDINGS: Bones: No fractures or dislocations. Moderate tricompartmental osteoarthritis in left knee is noted. No suspicious bony lesions. Soft tissues: No suspicious soft tissue calcifications or masses. IMPRESSION: No acute lower leg fracture or dislocation. 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 No gross soft tissue abnormality. Dictated by: Onel Jackson M.D. on 07/27/2023 at 15:16 Approved by: Onel Jackson M.D. on 07/27/2023 at 15:24
== END ==
PROVIDERS: PCP Family Medicine; Referring Provider Physician Assistant; Visit Provider Physician Assistant
DX: S89.92XA Unspecified injury of left lower leg, initial encounter (principal); M17.12 Unilateral primary osteoarthritis, left knee; W19.XXXA Unspecified fall, initial encounter
CPT/HCPCS: 73590

== ENCOUNTER → 2023-08-04 10:20 | Outpatient (CLI) | payer MEDICARE, SELFPAY ==
[2020-07-26 12:17] VITALS: BMI 27.3
--- NOTE | 2023-08-04 10:22 | DI.RAD.S_ITS ---
Bone Density Report Name: COOPER CARSON Age: 72 Sex: Female Ethnicity: White Date of : 1950 Indication: postmenopausal; screening for osteoporosis; prior fracture; Referring Provider: RUCHI HARRINGTON Study: Bone densitometry was performed. Exam Date: August 04, 2023 Accession number: [id number] Bone Density: Region BMD T-score Z-score Classification AP Spine(L1-L4) 0.773 -2.5 -0.1 Osteoporosis Femoral Neck (Right) 0.362 -4.4 -2.3 Osteoporosis Total Hip (Right) 0.443 -4.1 -2.3 Osteoporosis Total Forearm (Left) 0.435 -2.7 -0.2 Osteoporosis 1/3 Forearm (Left) 0.541 -2.5 0.0 Osteoporosis UD Forearm (Left) 0.299 -2.5 -0.7 Osteoporosis World Health Organization criteria for BMD impression classify patients as: Normal (T-score at or above -1.0), Osteopenia (T-score between -1.0 and -2.5), or Osteoporosis (T-score at or below -2.5). 10-year Fracture Risk: FRAX not reported because: Some T-score for Spine Total or Hip Total or Femoral Neck at or below -2.5 Prior hip or vertebral fracture Impression: The patient has established osteoporosis, based on the Right Femoral Neck T-score and the existence of a prior fracture. The patient has risk factors, including: previous fracture. Discussion: HIGH RISK OF FRACTURE. BONE DENSITY IS UNDESIRABLY LOW AT ONE OR MORE SKELETAL SITES, CONSISTENT WITH POSTMENOPAUSAL OSTEOPOROSIS. This patient's lowest T-score, in a patient who has previously fractured, meets the World Health Organization's (WHO) criteria for severe osteoporosis. In untreated patients, the risk of osteoporotic fracture increases approximately two-fold for each 1.0 SD decrease in T-score. Low bone density is not the only risk factor for fracture; also consider factors such as patient's age, frailty or poor health, risk of falling, risk of injury, previous osteoporotic fracture, family history of osteoporosis, cigarette smoking, low body weight, etc. Not everyone with low bone mineral density has osteoporosis; osteomalacia and other metabolic bone disorders should also be considered. Patients who have osteoporosis should be evaluated for specific diseases and conditions (secondary causes) that may cause or contribute to bone loss. The [place] Association of Clinical Endocrinologists (AACE) and National Osteoporosis Foundation (NOF) recommend pharmacologic intervention for all postmenopausal women with a previous hip or vertebral fracture and a T-score in this range. The patient should follow a healthful lifestyle (good nutrition with adequate calcium and vitamin D, and appropriate weight-bearing exercise). Follow-Up: Consider a repeat BMD and Vertebral Fracture Assessment (VFA) exam in 2 years or sooner if medically necessary, to reassess this patient's status. Reported by: JOANIE NARVAEZ MD on 08/04/2023 10:53:00 AM.
== END ==
LOC: RAD 10:21
PROVIDERS: PCP Family Medicine; Referring Provider Physician Assistant; Visit Provider Physician Assistant
DX: M81.0 Age-related osteoporosis without current pathological fracture (principal); Z78.0 Asymptomatic menopausal state
CPT/HCPCS: 77080; 77081

== ENCOUNTER → 2023-08-17 08:20 | Outpatient (CLI) | payer MEDICARE, SELFPAY ==
[2020-07-26 12:17] VITALS: BMI 27.3
[2023-08-17 09:17] LABS: Add Manual Diff / Slide Review NO; Basophils Absolute Auto 0 /uL (0-100); Basophils Percent Auto 0.6 % (0-2); Eosinophils Absolute Auto 0 /uL (0-450); Eosinophils Percent Auto 0.8 % (2-4); Hematocrit 40.3 % (36-46); Hemoglobin 13.5 g/dL (12.0-16.0); Lymphocytes Absolute Auto 1000 /uL (1100-4500); Lymphocytes Percent Auto 18.2 % (25-40); Mean Corpuscular HGB Conc 33.6 % (30-36); Mean Corpuscular Hemoglobin 31.2 PG (26-34); Mean Corpuscular Volume 92.8 fL (80-100); Monocytes Absolute Auto 500 /uL (0-900); Monocytes Percent Auto 9.2 % (3-14); Neutrophils Absolute Auto 3800 /uL (1500-7000); Neutrophils Percent Auto 71.2 % (50-75); Platelet Count 250 X10^3/uL (150-400); Red Blood Cell Count 4.34 X10^6/uL (4.0-5.2); Red Cell Distribution Width 14.4 % (11.6-14.8); White Blood Cell Count 5.3 X10^3/uL (4.5-11.0)
[2023-08-17 09:56] LABS: Alanine Aminotransferase 19 IU/L (<35); Albumin 4.3 g/dL (3.5-5.0); Albumin Globulin Ratio 1.2 (1.0-2.8); Alkaline Phosphatase 82 U/L (38-126); Aspartate Aminotransferase 31 IU/L (14-36); BUN Creatinine Ratio 13.9 (6-22); Bilirubin Total 0.6 mg/dL (0.2-1.3); Blood Urea Nitrogen 10 mg/dL (7-17); Carbon Dioxide 30 mmol/L (22-32); Chloride 101 mmol/L (98-107); Cholesterol 199 mg/dL (140-199); Estimated Glomerular Filt Rate > 60 mL/min (>60); Globulin 3.6 g/dL (1.7-4.1); Glucose 94 mg/dL (80-110); HDL Cholesterol 105 mg/dL (40-60); HEMOLYSIS < 15 (0-50); LDL Cholesterol Calculated 85 mg/dL (<100); Potassium 4.5 mmol/L (3.4-5.1); Sodium 137 mmol/L (137-145); Total Protein 7.9 g/dL (6.3-8.2); Triglycerides 43 mg/dL (35-150)
[2023-08-17 17:33] LABS: Vitamin D 25 Hydroxy (D3) 37.8 ng/mL (30.0-100.0)
== END ==
LOC: LAB 08:21
PROVIDERS: PCP Family Medicine; Referring Provider Family Medicine; Visit Provider Family Medicine
DX: E78.00 Pure hypercholesterolemia, unspecified (principal); E87.1 Hypo-osmolality and hyponatremia; F41.9 Anxiety disorder, unspecified; F32.9 Major depressive disorder, single episode, unspecified
CPT/HCPCS: 36415; 80053; 80061; 82306; 85025

== ENCOUNTER → 2024-01-18 13:35 | Outpatient (CLI) | payer MEDICARE, SELFPAY ==
[2020-07-26 12:17] VITALS: BMI 27.3
[2024-01-18 14:22] LABS: Influenza A - CEPHEID Flu A NEGATIVE (NEGATIVE); Influenza B - CEPHEID Flu B NEGATIVE (NEGATIVE); Respiratory Syncytial Virus Negative (Negative)
[2024-01-18 14:24] LABS: COVID-19 CEPHEID 4-PLEX PCR Negative (Negative)
== END ==
PROVIDERS: PCP Family Medicine; Visit Provider Nurse Practitioner Family
DX: R05.1 Acute cough (principal)
CPT/HCPCS: 0241U

== ENCOUNTER → 2024-02-11 10:32 | Outpatient (CLI) | payer MEDICARE, SELFPAY ==
[2020-07-26 12:17] VITALS: BMI 27.3
[2024-02-11 12:48] LABS: Albumin 4.2 g/dL (3.5-5.0); BUN Creatinine Ratio 29.6 (6-22); Blood Urea Nitrogen 21 mg/dL (7-17); Calcium 9.4 mg/dL (8.4-10.2); Carbon Dioxide 25 mmol/L (22-32); Chloride 102 mmol/L (98-107); Estimated Glomerular Filt Rate > 60 mL/min (>60); Glucose 85 mg/dL (80-110); HEMOLYSIS < 15 (0-50); Phosphorous 3.9 mg/dL (2.8-4.1); Potassium 4.7 mmol/L (3.4-5.1); Sodium 135 mmol/L (137-145)
[2024-02-11 13:05] LABS: Free T4, Direct Thyroxine 1.01 ng/dL (0.78-2.19)
[2024-02-11 13:19] LABS: Thyroid Stimulating Hormone 0.469 uIU/mL (0.47-4.68)
[2024-02-11 15:19] LABS: Vitamin D 25 Hydroxy (D3) 58.1 ng/mL (30.0-100.0)
[2024-02-13 00:13] LABS: Calcium 9.2 mg/dL (8.7-10.3); Parathyroid Hormone, Intact 52 pg/mL (15-65)
== END ==
PROVIDERS: PCP Family Medicine; Referring Provider Student in an Organized Health Care Education/Training Program; Visit Provider Student in an Organized Health Care Education/Training Program
DX: M81.0 Age-related osteoporosis without current pathological fracture (principal)
CPT/HCPCS: 36415; 80069; 82306; 82310; 83970; 84439; 84443

== ENCOUNTER → 2024-03-29 11:31 | Outpatient (CLI) | payer MEDICARE, SELFPAY ==
[2020-07-26 12:17] VITALS: BMI 27.3
--- NOTE | 2024-03-29 | DI.MG.S_ITS ---
BILATERAL DIGITAL SCREENING MAMMOGRAM 3D/2D WITH CAD: 03/29/2024 CLINICAL: Routine screening. Comparison is made to exams dated: 08/18/2022 mammogram, 08/08/2021 mammogram - [facility], and 05/27/2020 mammogram - outside location. The breasts are heterogeneously dense, which may obscure small masses (category c / 51-75% glandular tissue). Current study was also evaluated with a Computer Aided Detection (CAD) system. No significant masses, calcifications, or other findings are seen in either breast. There has been no significant interval change. IMPRESSION: NEGATIVE There is no mammographic evidence of malignancy. A 1 year screening mammogram is recommended. Based on the Tyrer Cuzick model (a risk assessment model) the patient's lifetime risk is 5.6% and her 10 year risk is 5.6%. According to the ACR, ACS, and NCCN guidelines, an annual breast MRI exam along with mammogram is recommended if the patient's lifetime risk is 20% or greater. This exam was interpreted at Station ID: [id number]. NOTE: For mammograms, a report in lay terms will be sent to the patient. Approximately 15% of breast malignancies will not be visualized mammographically. In the management of a palpable breast mass, a negative mammogram must not discourage biopsy of a clinically suspicious lesion. Electronically Signed By: Jailene santana/jeremy:03/29/2024 11:55:40 letter sent: Normal Exam ACR BI-RADS Category 1: Negative 3341F
== END ==
LOC: MAMMO 11:32
PROVIDERS: PCP Family Medicine; Referring Provider Family Medicine; Visit Provider Family Medicine
DX: Z12.31 Encounter for screening mammogram for malignant neoplasm of breast (principal); R92.333 Mammographic heterogeneous density, bilateral breasts
CPT/HCPCS: 77063; 77067

== ENCOUNTER → 2024-08-21 13:58 | Outpatient (CLI) | payer MEDICARE, SELFPAY ==
[2020-07-26 12:17] VITALS: BMI 27.3
[2024-08-21 14:43] LABS: Add Manual Diff / Slide Review NO; Basophils Absolute Auto 100 /uL (0-100); Eosinophils Absolute Auto 0 /uL (0-450); Eosinophils Percent Auto 0.5 % (2-4); Hemoglobin 12.9 g/dL (12.0-16.0); Lymphocytes Absolute Auto 1200 /uL (1100-4500); Lymphocytes Percent Auto 19.7 % (25-40); Mean Corpuscular Hemoglobin 30.7 PG (26-34); Mean Corpuscular Volume 93.3 fL (80-100); Monocytes Absolute Auto 600 /uL (0-900); Monocytes Percent Auto 9.7 % (3-14); Neutrophils Absolute Auto 4400 /uL (1500-7000); Neutrophils Percent Auto 69.1 % (50-75); Platelet Count 232 X10^3/uL (150-400); Red Blood Cell Count 4.18 X10^6/uL (4.0-5.2); Red Cell Distribution Width 14.7 % (11.6-14.8); White Blood Cell Count 6.3 X10^3/uL (4.5-11.0)
[2024-08-21 15:04] LABS: Alanine Aminotransferase 20 IU/L (<35); Albumin 4.4 g/dL (3.5-5.0); Albumin Globulin Ratio 1.4 (1.0-2.8); Alkaline Phosphatase 67 U/L (38-126); Aspartate Aminotransferase 46 IU/L (14-36); BUN Creatinine Ratio 18.8 (6-22); Bilirubin Total 0.8 mg/dL (0.2-1.3); Bilirubin Unconjugated 0.3 mg/dL (0.0-1.1); Blood Urea Nitrogen 15 mg/dL (7-17); Calcium 9.3 mg/dL (8.4-10.2); Carbon Dioxide 26 mmol/L (22-32); Chloride 99 mmol/L (98-107); Estimated Glomerular Filt Rate > 60 mL/min (>60); Globulin 3.2 g/dL (1.7-4.1); Glucose 89 mg/dL (80-110); HEMOLYSIS < 15 (0-50); Phosphorous 3.9 mg/dL (2.8-4.1); Potassium 4.2 mmol/L (3.4-5.1); Sodium 131 mmol/L (137-145); Total Protein 7.6 g/dL (6.3-8.2)
[2024-08-21 15:21] LABS: Vitamin D 25 Hydroxy (D3) 66.9 ng/mL (30.0-100.0)
[2024-08-21 15:54] LABS: TSH w/ Reflex to FT4 0.74 uIU/mL (0.47-4.68)
[2024-08-23 07:08] LABS: Triiodothyronine T3 Total 67 ng/dL (71-180)
[2024-08-24 23:07] LABS: ANA Screen, IFA Positive (.)
[2024-08-25 17:36] LABS: Thyroid Stimulating Immunoglob < 0.10 IU/L (0.00-0.55)
== END ==
PROVIDERS: PCP Family Medicine; Referring Provider Student in an Organized Health Care Education/Training Program; Visit Provider Student in an Organized Health Care Education/Training Program
DX: M81.0 Age-related osteoporosis without current pathological fracture; I10 Essential (primary) hypertension
CPT/HCPCS: 80069; 80076; 82306; 84443; 84445; 84480; 85025; 86038

== ENCOUNTER → 2024-11-25 10:19 | Outpatient (CLI) | payer MEDICARE, SELFPAY ==
[2020-07-26 12:17] VITALS: BMI 27.3
--- NOTE | 2024-11-25 10:22 | DI.RAD.S_ITS ---
PROCEDURE: XR KNEE LT 3V INDICATIONS: fall on knee TECHNIQUE: 3 views of the knee were acquired. COMPARISON: [facility], , XR KNEE LT 1TO2V, 06/29/2020, 10:43. FINDINGS: Bones: No fractures or dislocations. No suspicious bony lesions. There is moderate osteopenia. There is severe degenerative disease in the medial compartment and moderate degenerative disease in the pattern of femoral compartment. No significant joint effusion seen. Soft tissues: No joint effusion. No suspicious soft tissue calcifications. IMPRESSION: Degenerative changes, no focal osseous lesion seen in this osteopenic patient. Dictated by: Socrates Harrison M.D. on 11/26/2024 at 17:00 Approved by: Socrates Harrison M.D. on 11/26/2024 at 17:01
== END ==
PROVIDERS: PCP Family Medicine; Referring Provider Nurse Practitioner Family; Visit Provider Nurse Practitioner Family
DX: S80.00XA Contusion of unspecified knee, initial encounter (principal); M17.12 Unilateral primary osteoarthritis, left knee; M85.80 Other specified disorders of bone density and structure, unspecified site; X58.XXXA Exposure to other specified factors, initial encounter
CPT/HCPCS: 73562

== ENCOUNTER → 2024-12-09 11:44 | Outpatient (CLI) | payer MEDICARE, SELFPAY ==
[2020-07-26 12:17] VITALS: BMI 27.3
--- NOTE | 2024-12-09 11:55 | EKG_ITS ---
[address] [address] [address] [address] Test Date: 2024-12-09 Pat Name: Jeanne Malagon Department: [facility] Room: Gender: Female [employer]ological [employer]: SUZAN : 1950 Requested By: Order Number: [id number] Reading MD: Vincent Hooper Measurements Intervals [place] Rate: 64 P: 31 MA: 180 QRS: 33 QRSD: 80 T: 39 QT: 386 QTc: 398 Interpretive Statements Normal sinus rhythm Electronically Signed On 12-09-2024 16:24:40 PDT by Vincent Hooper
[2024-12-09 12:23] LABS: Add Manual Diff / Slide Review NO; Basophils Absolute Auto 0 /uL (0-100); Basophils Percent Auto 0.7 % (0-2); Eosinophils Absolute Auto 0 /uL (0-450); Eosinophils Percent Auto 0.4 % (2-4); Hematocrit 37.1 % (36-46); Hemoglobin 12.5 g/dL (12.0-16.0); Lymphocytes Absolute Auto 1200 /uL (1100-4500); Lymphocytes Percent Auto 19.1 % (25-40); Mean Corpuscular HGB Conc 33.6 % (30-36); Mean Corpuscular Hemoglobin 31.1 PG (26-34); Mean Corpuscular Volume 92.6 fL (80-100); Monocytes Absolute Auto 500 /uL (0-900); Monocytes Percent Auto 8.5 % (3-14); Neutrophils Absolute Auto 4400 /uL (1500-7000); Neutrophils Percent Auto 71.3 % (50-75); Platelet Count 239 X10^3/uL (150-400); Red Blood Cell Count 4.01 X10^6/uL (4.0-5.2); Red Cell Distribution Width 14.8 % (11.6-14.8); White Blood Cell Count 6.1 X10^3/uL (4.5-11.0)
[2024-12-09 12:34] LABS: Hemoglobin A1C% w Est Avg Glu 5.1 % (4.0-6.0)
[2024-12-09 12:59] LABS: BUN Creatinine Ratio 21.4 (6-22); Blood Urea Nitrogen 15 mg/dL (7-17); Calcium 9.3 mg/dL (8.4-10.2); Carbon Dioxide 27 mmol/L (22-32); Chloride 98 mmol/L (98-107); Estimated Glomerular Filt Rate > 60 mL/min (>60); Glucose 86 mg/dL (70-99); HEMOLYSIS < 15 (0-50); Potassium 4.2 mmol/L (3.4-5.1); Sodium 134 mmol/L (137-145)
== END ==
PROVIDERS: PCP Family Medicine; Referring Provider Family Medicine; Visit Provider Orthopaedic Surgery
DX: Z01.818 Encounter for other preprocedural examination (principal); R73.9 Hyperglycemia, unspecified; N39.0 Urinary tract infection, site not specified; Z01.812 Encounter for preprocedural laboratory examination
CPT/HCPCS: 36415; 80048; 83036; 85025; 87086; 93005

== ENCOUNTER → 2025-01-24 15:29 | Outpatient (CLI) | payer MEDICARE, SELFPAY ==
[2025-01-04 12:05] VITALS: BMI 27.3
--- NOTE | 2025-01-24 | DI.RAD.S_ITS ---
PROCEDURE: XR CERVICAL SPINE 2V OR 3V INDICATIONS: RULE OUT POSSIBILITY OF FRACTURE TECHNIQUE: Three views s) of the cervical spine were acquired. COMPARISON: None. FINDINGS: Cervical spine curvature and alignment: Normal. Bones: There are no fractures or other osseous abnormalities. Disc spaces: Moderate C3-4, C4-5, C5-6 and C6-7 degenerative disc and facet disease noted Soft tissues: No soft tissue swelling, calcification or mass. IMPRESSION: Degeneration. Dictated by: Richard Silva M.D. on 01/25/2025 at 10:45 Approved by: Richard Silva M.D. on 01/25/2025 at 10:46
--- NOTE | 2025-01-24 | DI.RAD.S_ITS ---
PROCEDURE: XR LUMBAR SPINE 2-3V INDICATIONS: RULE OUT POSSIBILITY OF FRACTURE TECHNIQUE: 3 views of the lumbar spine were acquired. COMPARISON: None. FINDINGS: Lumbar spine curvature and alignment: Normal. Bones: There are no osseous abnormalities. Disc spaces: Mild degenerative disc disease is seen at T9-10 through L4-5. Moderate L4-5 and L5-S1 degenerative facet disease Intervertebral foramen: Grossly normal in width. Soft tissues: No soft tissue swelling, calcification or mass. IMPRESSION: Degeneration Dictated by: Richard Silva M.D. on 01/25/2025 at 10:46 Approved by: Richard Silva M.D. on 01/25/2025 at 10:47
--- NOTE | 2025-01-24 | DI.RAD.S_ITS ---
PROCEDURE: XR THORACIC SPINE 2V INDICATIONS: RULE OUT POSSIBILITY OF FRACTURE TECHNIQUE: 3 views of the thoracic spine were acquired. COMPARISON: None. FINDINGS: Thoracic spine curvature and alignment: Slight rightward curve appreciated. Bones: Mild chronic wedging of all thoracic vertebral bodies noted. There is also slight endplate irregularity. This may be due to chronic Scheuermann's disease from disc degeneration or, less likely, osteoporosis. Disc spaces: Moderate degenerative disc disease seen throughout the mid lower thoracic spine Soft tissues: No soft tissue swelling, calcification or mass. IMPRESSION: Degeneration -please see above Dictated by: Richard Silva M.D. on 01/25/2025 at 10:47 Approved by: Richard Silva M.D. on 01/25/2025 at 10:48
== END ==
LOC: LAB 15:30 → RAD 15:45
PROVIDERS: PCP Family Medicine; Referring Provider Chiropractor; Visit Provider Chiropractor
DX: M47.812 Spondylosis without myelopathy or radiculopathy, cervical region (principal); M50.31 Other cervical disc degeneration, high cervical region; M51.34 Other intervertebral disc degeneration, thoracic region; M51.369 Other intervertebral disc degeneration, lumbar region without mention of lumbar back pain or lower extremity pain; M47.816 Spondylosis without myelopathy or radiculopathy, lumbar region; M47.817 Spondylosis without myelopathy or radiculopathy, lumbosacral region; M54.9 Dorsalgia, unspecified
CPT/HCPCS: 72040; 72070; 72100

== ENCOUNTER → 2025-02-15 07:36 | Outpatient (CLI) | payer MEDICARE, SELFPAY ==
[2025-01-04 12:05] VITALS: BMI 27.3
--- NOTE | 2025-02-15 07:38 | DI.RAD.S_ITS ---
PROCEDURE: XR TOE RT 3V INDICATIONS: Toe fracture TECHNIQUE: 3 views of the right 2nd toe acquired. COMPARISON: None. FINDINGS: Acute appearing mildly comminuted transverse fracture of the right 2nd proximal phalanx at its proximal diaphysis without gross intra-articular extension to the 2nd metatarsophalangeal joint. Probable nondisplaced fracture of the right 3rd proximal phalanx mid diaphysis also noted. Mild degenerative changes most notably at the tarsal-metatarsal, 1st metatarsophalangeal joints. No radiographic evidence of dislocation or high attenuation foreign body. IMPRESSION: Fracture right 2nd proximal phalanx. Probable fracture right 3rd proximal phalanx. Dictated by: Lucio Goodrich M.D. on 02/15/2025 at 8:24 Approved by: Lucio Goodrich M.D. on 02/15/2025 at 8:26
== END ==
LOC: RAD 07:38
PROVIDERS: PCP Family Medicine; Referring Provider Chiropractor; Visit Provider Chiropractor
DX: S97.121A Crushing injury of right lesser toe(s), initial encounter (principal); S92.511A Displaced fracture of proximal phalanx of right lesser toe(s), initial encounter for closed fracture; X58.XXXA Exposure to other specified factors, initial encounter
CPT/HCPCS: 73660

== ENCOUNTER → 2025-03-28 15:57 | Outpatient (CLI) | payer MEDICARE, SELFPAY ==
[2025-01-04 12:05] VITALS: BMI 27.3
--- NOTE | 2025-03-28 15:58 | DI.RAD.S_ITS ---
PROCEDURE: XR ANKLE RT MIN 3V INDICATIONS: Right foot and ankle swollen s/p toe fractures TECHNIQUE: 3 views of the ankle were acquired. COMPARISON: None. FINDINGS AND IMPRESSION: There is no acute displaced fracture or dislocation. Prominent dorsal talar osteophyte is present. Moderate diffuse soft tissue swelling, particularly adjacent to the lateral malleolus, possibly ligamentous injury. If there is high concern for further derangement, consider MRI evaluation. Dictated by: Janes Roblero M.D. on 03/28/2025 at 16:52 Approved by: Janes Roblero M.D. on 03/28/2025 at 16:54
--- NOTE | 2025-03-28 15:58 | DI.RAD.S_ITS ---
PROCEDURE: XR FOOT RT MIN 3V INDICATIONS: Right foot and ankle swollen s/p toe fractures TECHNIQUE: 3 views of the foot were acquired. COMPARISON: None. FINDINGS: Bones: Nondisplaced transverse fracture through the 2nd proximal phalanx shows no evidence of osseous union. Mild pes planus slight hammertoe deformities 2nd through 5th digits Joints: Mild degeneration 1st MTP and all interphalangeal joints Soft tissues: No soft tissue abnormality. IMPRESSION: Nondisplaced transverse fracture 2nd proximal phalanx. No evidence of osseous union Dictated by: Richard Silva M.D. on 03/29/2025 at 7:38 Approved by: Richard Silva M.D. on 03/29/2025 at 7:40
[2025-03-28 16:35] LABS: Add Manual Diff / Slide Review NO; Hematocrit 37.2 % (36-46); Hemoglobin 12.5 g/dL (12.0-16.0); Lymphocytes Absolute Auto 1100 /uL (1100-4500); Mean Corpuscular HGB Conc 33.5 % (30-36); Mean Corpuscular Hemoglobin 30.9 PG (26-34); Mean Corpuscular Volume 92.2 fL (80-100); Platelet Count 235 X10^3/uL (150-400)
[2025-03-29 16:11] LABS: Uric Acid 5.4 mg/dL (2.5-6.2)
== END ==
PROVIDERS: Physician Assistant; PCP Family Medicine; Referring Provider Chiropractor; Visit Provider Chiropractor
DX: M25.571 Pain in right ankle and joints of right foot (principal); S92.911G Unspecified fracture of right toe(s), subsequent encounter for fracture with delayed healing; M79.89 Other specified soft tissue disorders
CPT/HCPCS: 36415; 73610; 73630; 84550; 85025; 85651; 86140

== ENCOUNTER → 2025-04-09 11:43 | Outpatient (CLI) | payer MEDICARE, SELFPAY ==
[2025-03-30 08:55] VITALS: BMI 27.3
--- NOTE | 2025-04-09 11:44 | DI.MG.S_ITS ---
MM screening mammo BI: 04/09/2025. BI-RADS: 1 CLINICAL: 74-year old female for bilateral screening mammogram. Tyrer-Cuzick lifetime risk of 5.8%. No personal or first-degree family history of breast cancer. The patient had a prior right breast biopsy. PRIOR EXAMS 03/29/2024, 08/18/2022, 08/08/2021. MAMMOGRAPHY TECHNIQUE: 2D and 3D (tomosynthesis) digital mammographic views obtained, with additional images as needed for full coverage. Current study was also evaluated with a Computer Aided Detection (CAD) system. DENSITY C. The breasts are heterogeneously dense, which may obscure small masses. MAMMOGRAPHY FINDINGS Bilateral: No suspicious mass, asymmetry, microcalcification, or other abnormality seen. IMPRESSION: * No evidence of malignancy. RECOMMENDATIONS Bilateral * Annual screening mammography. OVERALL ASSESSMENT CATEGORY BI-RADS-1: Negative. The [employer] recommends annual screening mammography beginning at age 40 for women with average risk of breast cancer. ELECTRONICALLY SIGNED: Ernestina Baker M.D. on 04/10/2025 at 08:47:04 AM PT Interpreting Station ID: [id number]
== END ==
LOC: MAMMO 11:44
PROVIDERS: PCP Family Medicine; Referring Provider Family Medicine; Visit Provider Family Medicine
DX: Z12.31 Encounter for screening mammogram for malignant neoplasm of breast (principal); R92.333 Mammographic heterogeneous density, bilateral breasts
CPT/HCPCS: 77063; 77067

== ENCOUNTER → 2025-04-18 14:15 | Outpatient (CLI) | payer MEDICARE, SELFPAY ==
[2025-03-30 08:55] VITALS: BMI 27.3
--- NOTE | 2025-04-18 14:17 | DI.RAD.S_ITS ---
PROCEDURE: XR DEXA AXIAL SKELETON INDICATIONS: osteoporosis COMPARISON: [facility], , XR DEXA AXIAL SKELETON, 08/04/2023, 10:33. FINDINGS: Lumbar Spine: Bone mineral density 0.780 g/cm2, T score -2.4, Z-score 0.1. Osteopenia. Previous T-score was -2.5 Right Femoral Neck: Bone mineral density 0.419 g/cm2, T score -3.9, Z-score - 1.7. Osteoporosis. Previous T-score was -4.4 Right Hip: Bone mineral density 0.456 g/cm2, T score -4.0, Z-score -2.1. Osteoporosis. Previous T-score was -4.1 Fracture Risk Calculation (when applicable): 10-year fracture risk of a major osteoporotic fracture 70 percent and of a hip fracture 60 percent. (T score greater or equal to -1.0 to: NORMAL) (T score from -1.1 to -2.4: OSTEOPENIA) (T score less than or equal to -2.5: OSTEOPOROSIS) IMPRESSION: Osteoporosis as discussed above slightly improved from prior. Follow-up guidelines as follows: Osteoporosis: Consider a repeat DEXA and Vertebral Fracture Assessment (VFA) exam in 2 years or sooner if medically necessary, to reassess this patient's status. Osteopenia: Consider a repeat DEXA in 2-3 years to reassess this patient's status, or if there is a new clinical indication. Normal: Consider a repeat DEXA in 5 years or sooner, or if there is a new clinical indication. All treatment decisions require clinical judgment and consideration of individual patient factors, including patient preferences, comorbidities, previous drug use, risk factors not captured in the FRAX model (e.g., frailty, falls, vitamin D deficiency, increased bone turnover, interval significant decline in bone density ) and possible under- or over-estimation of fracture risk by FRAX. In addition, the NOF Guide recommends that FDA-approved medical therapies be considered in postmenopausal women and men age >= 50 years with a: * Hip or vertebral (clinical or morphometric) fracture * T-score of <=-2.5 at the spine or hip * Ten-year fracture probability by FRAX of >= 3% for hip fracture or >=20% for major osteoporotic fracture. Dictated by: Lucio Goodrich M.D. on 04/19/2025 at 13:16 Approved by: Lucio Goodrich M.D. on 04/19/2025 at 13:26
== END ==
PROVIDERS: PCP Family Medicine; Referring Provider Family Medicine; Visit Provider Family Medicine
DX: M81.0 Age-related osteoporosis without current pathological fracture (principal)
CPT/HCPCS: 77080